=== PATIENT | male | born 1945 | race African-American/Black ===

== ENCOUNTER → 2023-07-29 09:21 | Outpatient (REF) | payer MEDICARE, SELFPAY | LOC: HWRAD 09:21 | PROVIDERS: ATTENDING PHYSICIAN Ophthalmology; FAMILY PHYSICIAN Internal Medicine | DX: H47.2 Optic atrophy (principal) | CPT/HCPCS: 70450 ==

== ENCOUNTER 2023-11-23 17:04 | Inpatient (IN) | payer MEDICARE, SELFPAY ==
[2023-11-22] VITALS (7 sets, daily range): BP systolic 119–128; BP diastolic 56–73; BMI 28.1
[2023-11-22 16:49] LABS: % Basophils 0.1 % (0-2); % Immature Granulocytes 0.4 % (0-0.5); % Lymphocytes 6.6 % (20.5-51.1); % Monocytes 3.7 % (1.7-9.3); % Neutrophils 89.2 % (42.2-75.2); Absolute Lymphocytes 0.5 10^3/uL (1.2-3.4); Absolute Monocytes 0.3 10^3/uL (0.1-0.6); Hematocrit 26.6 % (39.0-52.0); Hemoglobin 9.1 g/dL (13.0-18.0); Mean Corp Hgb Conc. 34.2 g/dL (33.0-37.0); Mean Corpuscular Hgb 29.3 pg (27.0-31.0); Mean Corpuscular Volume 85.5 fL (80.0-94.0); Mean Platelet Volume 12.5 fL (7.4-10.4); Nucleated Red Blood Cells % 0 % (-); Platelet Count 96 10^3/uL (130-400); Red Blood Cell Count 3.11 10^6/uL (4.70-6.10); Red Cell Dist. Width 12.7 % (11.5-14.5); White Blood Cell Count 7.8 10^3/uL (4.8-10.8)
[2023-11-22 17:07] LABS: ALT (SGPT) 41 U/L (0-50); AST (SGOT) 65 U/L (17-59); Albumin 3.8 g/dl (3.5-5.0); Alkaline Phosphatase 55 U/L (38-126); Blood Urea Nitrogen 81 mg/dl (9-20); Calcium 9.3 mg/dl (8.4-10.2); Carbon Dioxide 19 mmol/L (22-30); Chloride 105 mmol/L (98-107); Glucose 164 mg/dl (70-99); Potassium 4.5 mmol/L (3.5-5.1); Sodium 138 mmol/L (135-145); Total Protein 6.7 g/dl (6.3-8.2); eGFR 8.25
--- NOTE | 2023-11-22 19:22 | ED.GENMED ---
History of Present Illness
<Carlos Westfall MD - Last Filed: 11/23/23 09:13>
General
Chief Complaint: Dizziness
Source: patient
Exam Limitations: none
Time Seen by Provider: 11/22/23 18:33
Nursing documentation reviewed up to this point in time: agreed with
Travel History
Have you had any contact with someone who has COVID-19?: No
Do you have any symptoms of coronavirus? Fever > 100 degrees, chills, cough, shortness of breath, sore throat, loss of taste or smell, muscle aches, or headache?: No
History of Present Illness
History of Present Illness:
Patient with history of chronic renal insufficiency, being followed by waterproof bag sewer at [facility], presents to ED secondary to decreased appetite and weakness over the past 2 days. Patient states that his most recent blood
work, approximate 1 month ago, his creatinine was around 3. Denies difficulty with urination. Denies fever or chills. Denies vomiting. Denies abdominal pain. Denies back pain. Denies recent change in medications or diet.
Past History
<Carlos Westfall MD - Last Filed: 11/23/23 09:13>
Past History
ED Past Medical History: None
ED Past Surgical History: None
Social History
Tobacco: Non-smoker
Family History
Family History: Unable to obtain
Review of Systems
<Carlos Westfall MD - Last Filed: 11/23/23 09:13>
Review of Systems
Allergies reviewed?: Yes
All Other Systems: ROS reviewed and negative except as documented in HPI and ROS
Constitutional: Reports no symptoms
EENT: Reports no symptoms
Respiratory: Reports no symptoms
Cardiac: Reports no symptoms
ABD/GI: Reports other (loss of appetite)
: Reports no symptoms
Musculoskeletal: Reports no symptoms
Skin: Reports no symptoms
Neurological: Reports no symptoms
Phy Exam
<Carlos Westfall MD - Last Filed: 11/23/23 09:13>
Physical Exam
Physical Exam:
Physical Exam
General: no apparent distress, not acutely ill. afebrile.
Head: nc/at. eomi
Neck: supple. no meningeal signs.
Heart: s1/s2 regular rate and rhythm, no murmur. equal radial pulses.
Lungs: no acute respiratory distress. clear bilaterally
Abdomen: normal bowel sounds. not tender.
Neuro: alert and oriented. no focal neurological deficits
Skin: no rash
Psychiatric: well kept. interactive and cooperative
Extremities: no edema. no calf tenderness.
Course
<Carlos Westfall MD - Last Filed: 11/23/23 09:13>
Orders/Labs/Results
Orders:
Orders
11/22/23 16:12
Electrocardiogram (*1) Urgent
Reason for Study: Vertigo / Dizzy
11/22/23 16:13
EKG- Treatment ONCE
11/22/23 16:14
Complete Blood Count/With Diff Urgent
Comprehensive Metabolic Panel Urgent
11/22/23 19:21
0.9% Sodium Chloride 500 ml [Nss] 500 ml IV BOLUS
11/22/23 21:54
Urinalysis Reflex To Culture Urgent
Date Specimen was Collected: 11/22/23
Time Specimen was Collected: 20:07
11/22/23 22:26
Admit/Transfer Patient As Directed
Co-Sign Provider:
Level of Care: Observation services
Assign to:: Medical/Surgical
Physician / Group: rodrick
Diagnosis: decreased apetite
11/22/23 22:27
Code Status As Directed
Resuscitation Status: Full Code
11/23/23 00:43
0.9% Sodium Chloride 1000 ml [Nss] 1,000 ml IV 80 mls/hr
Calcitriol [Rocaltrol] 0.25 mcg PO MOWEFR
Dextrose 50%-Water [Dextrose 50% Syringe] 12.5 grams IV [id number] PRN
Glucagon [GlucaGen] 1 mg IM PRN PRN
11/23/23 00:43
Consult Notification Routine
Specialty to Notify: Nephrology
NEPHROLOGY CONSULT Routine
Consulting Provider: Dennise Becker
Was physician already notified: No
Reason for consult: DAMARI on CKD
Activity As Directed
Activity Level: As Tolerated
Bedside Glucose Monitoring As Directed
Frequency: AC&HS
Additional Instructions:: Change to q6h if pt on TPN, tube feeding or not eating
Vital Signs As Directed
Frequency: Per unit guidelines
DX Deep Vein Thrombosis Video Routine
11/23/23 04:46
Complete Blood Count/With Diff IN AM
Comprehensive Metabolic Panel IN AM
Glycohemoglobin (HgbA1c) IN AM
11/23/23 07:30
Insulin Aspart Corrective Low [Novolog Flexpen-Low Resistance] See Protocol SC AC
11/23/23 08:00
Aspirin Low Dose EC [Aspir Low (Enteric Coated)] 81 mg PO DAILY
Atorvastatin [Lipitor] 20 mg PO DAILY
Carvedilol [Coreg] 25 mg PO BID
Heparin 5,000 units SC Q12
NIFEdipine EXTENDED RELEASE [Procardia Xl (Extended Release)] 60 mg PO DAILY
Sodium Bicarbonate 1,300 mg PO BID
11/23/23 Dinner
Potassium, 2 Gram
At Your Request: Full Participation
11/23/23 18:00
insulin glargine [Lantus Solostar U-100 Insulin] 4 unit SC QPM
11/23/23 22:00
Latanoprost [Xalatan Ophthalmic Solution] 1 drop BOTH EYES HS
Abnormal Lab Results
11/22/23
16:14
RBC 3.11 L 10^6/uL
(4.70-6.10)
Hgb 9.1 L g/dL
(13.0-18.0)
Hct 26.6 L %
(39.0-52.0)
Plt Count 96 L 10^3/uL
(130-400)
MPV 12.5 H fL
(7.4-10.4)
Absolute Neuts (auto) 7.0 H 10^3/uL
(1.4-6.5)
Absolute Lymphs (auto) 0.5 L 10^3/uL
(1.2-3.4)
Neutrophils % 89.2 H %
(42.2-75.2)
Lymphocytes % 6.6 L %
(20.5-51.1)
Carbon Dioxide 19 L mmol/L
(22-30)
BUN 81 H mg/dl
(9-20)
Creatinine 6.5 H* mg/dL
(0.7-1.3)
Glucose 164 H mg/dl
(70-99)
AST 65 H U/L
(17-59)
11/22/23 16:14
11/22/23 16:14
Vital Signs
Initial and Last Documented VS:
Initial Vital Signs
Temp Pulse Resp BP Pulse Ox
98.7 F 88 18 124/69 92
11/22/23 16:10 11/22/23 16:10 11/22/23 16:10 11/22/23 16:10 11/22/23 16:10
Last Documented Vital Signs
Temp Pulse Resp BP Pulse Ox
100.1 F 80 17 126/61 96
11/23/23 08:08 11/23/23 08:08 11/23/23 08:08 11/23/23 08:08 11/23/23 08:08
<Franci Scott MD - Last Filed: 11/23/23 01:32>
Orders/Labs/Results
Orders:
Orders
11/22/23 16:12
Electrocardiogram (*1) Urgent
Reason for Study: Vertigo / Dizzy
11/22/23 16:13
EKG- Treatment ONCE
11/22/23 16:14
Complete Blood Count/With Diff Urgent
Comprehensive Metabolic Panel Urgent
11/22/23 19:21
0.9% Sodium Chloride 500 ml [Nss] 500 ml IV BOLUS
11/22/23 21:54
Urinalysis Reflex To Culture Urgent
Date Specimen was Collected: 11/22/23
Time Specimen was Collected: 20:07
11/22/23 22:26
Admit/Transfer Patient As Directed
Co-Sign Provider:
Level of Care: Observation services
Assign to:: Medical/Surgical
Physician / Group: rodrick
Diagnosis: decreased apetite
11/22/23 22:27
Code Status As Directed
Resuscitation Status: Full Code
11/23/23 00:43
0.9% Sodium Chloride 1000 ml [Nss] 1,000 ml IV 80 mls/hr
Calcitriol [Rocaltrol] 0.25 mcg PO MOWEFR
Dextrose 50%-Water [Dextrose 50% Syringe] 12.5 grams IV [id number] PRN
Glucagon [GlucaGen] 1 mg IM PRN PRN
11/23/23 00:43
Consult Notification Routine
Specialty to Notify: Nephrology
NEPHROLOGY CONSULT Routine
Consulting Provider: Dennise Becker
Was physician already notified: No
Reason for consult: DAMARI on CKD
Activity As Directed
Activity Level: As Tolerated
Bedside Glucose Monitoring As Directed
Frequency: AC&HS
Additional Instructions:: Change to q6h if pt on TPN, tube feeding or not eating
Vital Signs As Directed
Frequency: Per unit guidelines
DX Deep Vein Thrombosis Video Routine
11/23/23 04:46
Complete Blood Count/With Diff IN AM
Comprehensive Metabolic Panel IN AM
Glycohemoglobin (HgbA1c) IN AM
11/23/23 07:30
Insulin Aspart Corrective Low [Novolog Flexpen-Low Resistance] See Protocol SC AC
11/23/23 08:00
Aspirin Low Dose EC [Aspir Low (Enteric Coated)] 81 mg PO DAILY
Atorvastatin [Lipitor] 20 mg PO DAILY
Carvedilol [Coreg] 25 mg PO BID
Heparin 5,000 units SC Q12
NIFEdipine EXTENDED RELEASE [Procardia Xl (Extended Release)] 60 mg PO DAILY
Sodium Bicarbonate 1,300 mg PO BID
11/23/23 Dinner
Potassium, 2 Gram
At Your Request: Full Participation
11/23/23 18:00
insulin glargine [Lantus Solostar U-100 Insulin] 4 unit SC QPM
11/23/23 22:00
Latanoprost [Xalatan Ophthalmic Solution] 1 drop BOTH EYES HS
Abnormal Lab Results
11/22/23
16:14
RBC 3.11 L 10^6/uL
(4.70-6.10)
Hgb 9.1 L g/dL
(13.0-18.0)
Hct 26.6 L %
(39.0-52.0)
Plt Count 96 L 10^3/uL
(130-400)
MPV 12.5 H fL
(7.4-10.4)
Absolute Neuts (auto) 7.0 H 10^3/uL
(1.4-6.5)
Absolute Lymphs (auto) 0.5 L 10^3/uL
(1.2-3.4)
Neutrophils % 89.2 H %
(42.2-75.2)
Lymphocytes % 6.6 L %
(20.5-51.1)
Carbon Dioxide 19 L mmol/L
(22-30)
BUN 81 H mg/dl
(9-20)
Creatinine 6.5 H* mg/dL
(0.7-1.3)
Glucose 164 H mg/dl
(70-99)
AST 65 H U/L
(17-59)
11/22/23 16:14
11/22/23 16:14
Vital Signs
Initial and Last Documented VS:
Initial Vital Signs
Temp Pulse Resp BP Pulse Ox
98.7 F 88 18 124/69 92
11/22/23 16:10 11/22/23 16:10 11/22/23 16:10 11/22/23 16:10 11/22/23 16:10
Last Documented Vital Signs
Temp Pulse Resp BP Pulse Ox
100.1 F 80 17 126/61 96
11/23/23 08:08 11/23/23 08:08 11/23/23 08:08 11/23/23 08:08 11/23/23 08:08
<Carlos Westfall MD - Last Filed: 11/23/23 09:13>
MDM/Problems Addressed
MDM/Problems Addressed:
Blood work reviewed, remarkable for significant elevated creatinine, possibly secondary to recent lack of oral intake, along with symptoms concerning for uremia. Patient will be admitted for IV hydration and further evaluation.
<Franci Scott MD - Last Filed: 11/23/23 01:32>
*Critical Care Note
Total Time (30-74mins, 75-104mins- exclusive of procedures): Not Applicable
ED Attending Note
<Carlos Westfall MD - Last Filed: 11/23/23 09:13>
-
Portions of this chart may have been created with voice recognition software.� Occasional wrong word or��sound alike� substitutions may have occurred due to the inherent limitations of voice recognition software.
Discharge Plan
Departure
Patient Disposition: Admit
Date of Disposition: 11/22/23
Time of Disposition: 19:25
Admit to: Med/Surg
Presentation/result/management discussed w/ accepting MD/DO: Hospitalist
Discharge Problem:
Acute renal failure superimposed on chronic kidney disease
Interventions
Interventions:
*Risk Screen - Suicide Last Done: 11/22/23 18:28
*General Assessment Last Done: 11/22/23 18:28
*Neglect/Abuse Screening Last Done: 11/22/23 18:28
ED- Fall Risk Assessment Last Done: 11/23/23 00:20
*ED COVID-19 Vaccine History Last Done: 11/22/23 20:26
*Nursing Disposition Last Done: 11/23/23 00:30
ED- Neurological Assessment Last Done: 11/23/23 00:20
ED- Cardiac Assessment Last Done: 11/23/23 00:20
ED Swallowing Screen Last Done: 11/22/23 18:28
Discharge Date and Time
Discharge Date/Time: 11/23/23 00:30
[2023-11-22] MEDS: NSS 500 IV (19:29)
--- NOTE | 2023-11-22 22:30 | HPS.HSE ---
Family Physician
-
Family Physician: Lianna Hurley MD
Chief Complaint
-
decreased PO Intake
History of Present Illness
78-year-old female past medical history of CKD 3, hypertension, hyperlipidemia, diabetes, presenting for decreased appetite over the past year particularly over the past few weeks. He has been feeling weak and has lost significant amount of weight
over this time. He has some mild tremors. He has chronic lower extremity edema which is stable. He denies nausea vomiting or diarrhea. He denies any flank pain, urinary symptoms or decreased urine output. Denies abdominal pain. Denies any
fevers or chills. Patient follows with nephrology at [facility] and last had blood work a month ago and his creatinine was 3. He states that his creatinine was last normal possibly 2 years ago. He has not been started on any new medications recently.
His blood pressure has been controlled. He denies any chest pain or shortness of breath.
He denies smoking or alcohol use.
Medical History
Past Medical History
Past Medical History: Reports Other (CKD 3, hypertension, hyperlipidemia, diabetes)
Past Surgical History: Reports Other (Eye surgery, appendectomy, hernia surgery)
Social History
Tobacco: Non-smoker
Alcohol: None
Drug: None
Family History
Family History: Not pertinent
Allergies / Home Medications
Allergies reflects when Allergies were last updated in [facility].
Home Medications with original date entered in [facility]
Allergy/Medication List:
Allergies
Allergy/AdvReac Type Severity Reaction Status Date / Time
No Known Allergies Allergy Verified 11/22/23 16:09
Home Medications
aspirin 81 mg tablet,delayed release 81 mg PO DAILY 11/22/23
calcitriol 0.25 mcg capsule 0.25 mcg PO MOWEFR 11/22/23
carvedilol 25 mg tablet (Coreg) 25 mg PO BID 11/22/23
insulin glargine 100 unit/mL (3 mL) subcutaneous pen (Lantus Solostar U-100 Insulin) 4 unit SC QPM 11/22/23
latanoprost 0.005 % eye drops 1 drp BOTH EYES HS 11/22/23
nifedipine 90 mg tablet,extended release 24 hr 90 mg PO DAILY 11/22/23
simvastatin 40 mg tablet (Zocor) 40 mg PO DAILY 11/22/23
sodium bicarbonate 650 mg tablet 1,300 mg PO BID 11/22/23
Review of Systems
-
History Source: Patient
A 12 point ROS was completed and negative except as noted: Yes
Constitutional: Reports No Symptoms
EENT: Reports No Symptoms
Respiratory: Reports No Symptoms
Cardiac: Reports No Symptoms
Abdomen/GI: Reports See HPI
: Reports No Symptoms
Musculoskeletal: Reports No Symptoms
Skin: Reports No Symptoms
Neurological: Reports No Symptoms
Endocrine: Reports No Symptoms
Hematologic/Lymphatic: Reports No Symptoms
Psych: Reports No Symptoms
Physical Exam
Vital Signs
Vital Signs
Temp Pulse Resp BP Pulse Ox
98.7 F 94 30 128/56 94
11/22/23 16:10 11/22/23 21:15 11/22/23 21:15 11/22/23 21:00 11/22/23 21:15
Physical Exam
General: Well Developed, Well Nourished and No Apparent Distress
HEENT: NormoCephalic, Moist mucous membranes and Atraumatic
Respiratory: Clear
Cardiac: S1/S2, Regular Rhythm and Peripheral Edema; No Murmur or Rub
GI: Soft, Non Tender, Non Distended and Normal Bowel Sounds; No Organomegaly
Rectal: Deferred by Provider
Musculoskeletal: No Clubbing, No Cyanosis and No Edema
Skin: No Rash
Neuro: Nonfocal/grossly intact
Laboratory Results
-
11/22/23 16:14
11/22/23 16:14
Laboratory Results
Total Bilirubin 1.0 mg/dl (0.2-1.3) 11/22/23 16:14
AST 65 U/L (17-59) H 11/22/23 16:14
ALT 41 U/L (0-50) 11/22/23 16:14
Alkaline Phosphatase 55 U/L (38-126) 11/22/23 16:14
Data Reviewed
-
Lab Data: Labs Reviewed by me
Old Records: Reviewed
Impression/Plan
-
IMPRESSION:
PLAN:
# DAMARI on CKD 3 unclear etiology
# Symptomatic uremia
-Creatinine of 6.5 from 3 last month
-Check urinalysis
-IV fluids for possible prerenal component
-Continue sodium bicarb
-Continue calcitriol
-Will need to obtain records from nephrology at [facility], patient does not remember exact name and spelling so unable to lookup
-Nephrology consulted
Normocytic anemia likely related to CKD
-Hemoglobin 9.1
Thrombocytopenia
-Chronicity unknown, no prior labs available
Essential hypertension
-Continue nifedipine, Coreg
-Continue prophylactic aspirin
Hyperlipidemia
-Continue statin
Type 2 diabetes
-Continue Lantus 4 units at night
-Insulin sliding
Full code
DVT prophylaxis�heparin
Renal diet
[2023-11-23] VITALS (13 sets, daily range): BP systolic 90–126; BP diastolic 50–80; BMI 27.6
[2023-11-23] MEDS: TYLENOL 650 MG PO ×2 (01:09→15:24)
[2023-11-23] MEDS: ROCALTROL PO (01:19)
[2023-11-23 01:22] LABS: Glucose - Point of Care 193 mg/dl (70-99)
[2023-11-23] MEDS: NSS 1000 IV ×2 (01:38→15:24)
[2023-11-23] MEDS: LANTUS 0.0400000000000000008 UNITS SC ×2 (01:59→17:48)
--- NOTE | 2023-11-23 02:06 | PTCARENOTE ---
Received pt from ED at approx 0045, pulled over from stretcher to bed with assist x3. Belongings at bedside. Pt oriented to room. Pt with +4 BL LE edema, decreased lung sounds b/l, and faint weak non-productive cough. AAOx3, warm to touch. Oral temp
102.9F, BP 119/62, HR 92. Received pt on 2L O2, SaO2 86%. Pt required increase oxygen needs to 5L for SaO2 94%. LANDON Page notified. STAT portable CXR ordered and completed, 650mg Tylenol STAT ordered @ 0110. At 0145, oral temperature rechecked, 103F,
pt packed with ice. Pt's O2 needs decreased, SaO2 95% on 3L. LANDON Page updated, ordered STAT labs and COVID/Flu swabs. Pt remains pleasant and oriented, updated on plan of care. Call lu within reach
[2023-11-23 02:17] LABS: % Basophils 0.1 % (0-2); % Immature Granulocytes 0.3 % (0-0.5); % Lymphocytes 5.7 % (20.5-51.1); % Monocytes 3.5 % (1.7-9.3); % Neutrophils 90.4 % (42.2-75.2); Absolute Lymphocytes 0.4 10^3/uL (1.2-3.4); Absolute Monocytes 0.2 10^3/uL (0.1-0.6); Absolute Neutrophils 6.1 10^3/uL (1.4-6.5); Hematocrit 22.2 % (39.0-52.0); Hemoglobin 7.9 g/dL (13.0-18.0); Mean Corp Hgb Conc. 35.6 g/dL (33.0-37.0); Mean Corpuscular Hgb 29.6 pg (27.0-31.0); Mean Corpuscular Volume 83.1 fL (80.0-94.0); Mean Platelet Volume 11.8 fL (7.4-10.4); Nucleated Red Blood Cells % 0 % (-); Platelet Count 91 10^3/uL (130-400); Red Blood Cell Count 2.67 10^6/uL (4.70-6.10); Red Cell Dist. Width 12.9 % (11.5-14.5); White Blood Cell Count 6.8 10^3/uL (4.8-10.8)
[2023-11-23 02:20] LABS: COVID-19 Antigen Negative (Negative)
[2023-11-23 03:02] LABS: ALT (SGPT) 53 U/L (0-50); AST (SGOT) 87 U/L (17-59); Albumin 3.2 g/dl (3.5-5.0); Alkaline Phosphatase 49 U/L (38-126); Blood Urea Nitrogen 87 mg/dl (9-20); Calcium 8.6 mg/dl (8.4-10.2); Carbon Dioxide 20 mmol/L (22-30); Chloride 107 mmol/L (98-107); Estimated Creatinine Clearance 9 ml/min; Glucose 166 mg/dl (70-99); Potassium 4.1 mmol/L (3.5-5.1); Sodium 139 mmol/L (135-145); Total Bilirubin 0.7 mg/dl (0.2-1.3); Total Protein 5.9 g/dl (6.3-8.2); eGFR 7.06
[2023-11-23] MEDS: LEVAQUIN 50 IV (03:48)
--- NOTE | 2023-11-23 03:58 | PTCARENOTE ---
Temperature reassessment 100.3F orally, ice packs removed. bladder scanned for no urine output, 237mL. LANDON Page updated.
[2023-11-23 05:58] LABS: % Basophils 0.1 % (0-2); % Immature Granulocytes 0.1 % (0-0.5); % Lymphocytes 7.2 % (20.5-51.1); % Monocytes 3.6 % (1.7-9.3); Absolute Lymphocytes 0.5 10^3/uL (1.2-3.4); Absolute Monocytes 0.3 10^3/uL (0.1-0.6); Absolute Neutrophils 6.3 10^3/uL (1.4-6.5); Hematocrit 23.8 % (39.0-52.0); Hemoglobin 8.1 g/dL (13.0-18.0); Mean Corpuscular Hgb 29.2 pg (27.0-31.0); Mean Corpuscular Volume 85.9 fL (80.0-94.0); Mean Platelet Volume 12.3 fL (7.4-10.4); Nucleated Red Blood Cells % 0 % (-); Platelet Count 86 10^3/uL (130-400); Red Blood Cell Count 2.77 10^6/uL (4.70-6.10); Red Cell Dist. Width 12.5 % (11.5-14.5); White Blood Cell Count 7.1 10^3/uL (4.8-10.8)
[2023-11-23 06:22] LABS: ALT (SGPT) 62 U/L (0-50); AST (SGOT) 97 U/L (17-59); Albumin 3.1 g/dl (3.5-5.0); Alkaline Phosphatase 48 U/L (38-126); Blood Urea Nitrogen 89 mg/dl (9-20); Calcium 8.5 mg/dl (8.4-10.2); Carbon Dioxide 18 mmol/L (22-30); Chloride 106 mmol/L (98-107); Estimated Creatinine Clearance 9 ml/min; Glucose 154 mg/dl (70-99); Potassium 4.2 mmol/L (3.5-5.1); Sodium 137 mmol/L (135-145); Total Bilirubin 0.7 mg/dl (0.2-1.3); Total Protein 5.7 g/dl (6.3-8.2); eGFR 6.84
[2023-11-23 07:56] LABS: Glucose - Point of Care 153 mg/dl (70-99)
[2023-11-23] MEDS: PROCARDIA XL (EXTENDED RELEASE) 60 MG PO (08:13)
[2023-11-23] MEDS: SODIUM BICARBONATE 1300 MG PO ×2 (08:13→20:40)
[2023-11-23] MEDS: ASPIR LOW (ENTERIC COATED) 81 MG PO (08:14)
[2023-11-23] MEDS: COREG 25 MG PO ×2 (08:14→20:40)
[2023-11-23] MEDS: PROCARDIA XL (EXTENDED RELEASE) 30 MG PO (08:14)
[2023-11-23] MEDS: HEPARIN 5000 UNITS SC ×2 (08:14→20:40)
[2023-11-23] MEDS: LIPITOR 20 MG PO (08:14)
[2023-11-23] MEDS: NOVOLOG FLEXPEN-LOW RESISTANCE 1 UNITS SC ×2 (08:19→17:49)
[2023-11-23 12:05] LABS: Glucose - Point of Care 163 mg/dl (70-99)
--- NOTE | 2023-11-23 12:09 | W.PN.HOSP.TC ---
Today's Communication/Plan
-
Nephrology consult
Urinalysis
Await blood cultures
Renal ultrasound
CT chest
Assessment / Plan
Assessment / Plan
Gen-AAOx3, NAD
HEENT-NC, AT, anicteric, clear oral mm
Neck-supple
CV-reg, no M, +S1/S2
Lungs-clear B/L
Abd-soft, NT, ND
Ext-bilateral lower extremity lymphedema
Musculoskeletal-no cyanosis, clubbing
Skin-warm and dry
Neuro-grossly non-focal
Psych-calm, cooperative
Sepsis -present on admission. Source unclear. Hemodynamically stable. No fevers at home but did have chills. Denies abdominal pain. Differential diagnosis includes pneumonia versus source versus other. Blood cx sent last night. Started
empiric Levaquin.
UA pending. Check CT chest without contrast given questionable left sided pneumonia vs mass.
DAMARI on CKD 3 -unclear stage of chronic kidney disease given that we have no prior blood work. Reportedly creatinine 3 one month ago. Etiology of DAMARI unclear but differential includes sepsis, postobstructive, prerenal, etc. Nephrology consulted.
Nongap metabolic acidosis noted. Bicarb 18 today. Continue sodium bicarb today.
Escalera catheter inserted. Bladder scan was 237 cc prior to insertion.
Normocytic anemia - Hgb 8.1 today. Suspect CKD related chronic anemia. Baseline Hgb unknown.
Thrombocytopenia - 86k today. Unclear etiology or acuity. Monitor for now.
Essential HTN -stable.
DM2 with hyperglycemia - glucose 154 this am, received 4 units of Lantus last night. This is his home regimen. Continue low resistance NovoLog scale.
Hyperlipidemia -on Zocor.
Full code
Anticipated Discharge: > 48 hours
Subjective/Interval History
-
Date of Service: November 23, 2023
Patient seen/examined. Mild SOB, cough. Complaining of loss of appetite, fatigue.
Objective Data
-
Labs:
Laboratory Results
11/23/23 11/23/23
02:07 04:46
WBC 6.8 7.1
Hgb 7.9 L 8.1 L
Hct 22.2 L 23.8 L
Plt Count 91 L 86 L
Sodium 139 137
Potassium 4.1 4.2
Chloride 107 106
Carbon Dioxide 20 L 18 L
BUN 87 H 89 H
Creatinine 7.4 H* 7.6 H*
Glucose 166 H 154 H
Calcium 8.6 8.5
Total Bilirubin 0.7 0.7
AST 87 H 97 H
ALT 53 H 62 H
Alkaline Phosphatase 49 48
Vital Signs:
Vital Signs
Temp Pulse Resp BP Pulse Ox
99.4 F 80 17 126/61 96
11/23/23 11:04 11/23/23 08:08 11/23/23 08:08 11/23/23 08:08 11/23/23 08:08
I&O
11/22/23 11/23/23 11/24/23
06:59 06:59 06:59
Intake Total 570 / 570
Balance 570 / 570
Review of Systems
-
History Source: Patient
All other systems: Reviewed and negative
[2023-11-23 12:11] LABS: Glycohemoglobin (HgbA1c) 5.5 % (4.0-5.6)
--- NOTE | 2023-11-23 12:18 | W.CON.NEPH ---
Consultation
-
Date/Time Consultation Requested: 11/23/2023 00:43
Date/Time Consultation Performed: 11/23/2023 12:19PM
Requesting Provider: [facility]
Performing Provider: Dennise Becker
Reason for Consultation: DAMARI on CKD
Medical History
-
Chief Complaint: DAMARI on CKD
History of Present Illness:
Mr. Hernández is a 78YOM with PMH of CKD Stage 4, HTN, DLD, diabetes who presents to the hospital after having decreased PO intake, particularly over the past few days. States that he has lost a significant amount of weight and feels nauseous when he
tries to eat something. Is noted to have some tremors. Denies vomitting or diarrhea. Does endorse stable lower extremity edema, no worsenign SOB.
Of note, the patient follows with [facility]. His last Cr was 3.7. Has continued to make urine, feels like he is peeing more.
Past Medical History
CKD 3/4, hypertension, hyperlipidemia, diabetes
Past Surgical History: Other (Eye surgery, appendectomy, hernia surgery)
Social History
Tobacco: Non-Smoker
Alcohol: None
Drug: None
Family History
Family History: Not Pertinent
Allergies / Home Medications
Allergy/AdvReac Type Severity Reaction Status Date / Time
No Known Allergies Allergy Verified 11/22/23 16:09
�Medication �Instructions �Recorded �Confirmed �Type
aspirin 81 mg tablet,delayed 81 mg PO DAILY Blood Clot 11/22/23 11/22/23 History
release Prevention/Tx
calcitriol 0.25 mcg capsule 0.25 mcg PO MOWEFR Supplement 11/22/23 11/22/23 History
carvedilol 25 mg tablet (Coreg) 25 mg PO BID Blood Pressure 11/22/23 11/22/23 History
insulin glargine 100 unit/mL (3 4 unit SC QPM Diabetes 11/22/23 11/22/23 History
mL) subcutaneous pen (Lantus
Solostar U-100 Insulin)
latanoprost 0.005 % eye drops 1 drp BOTH EYES HS Eye Condition 11/22/23 11/22/23 History
nifedipine 90 mg tablet,extended 90 mg PO DAILY Blood Pressure 11/22/23 11/22/23 History
release 24 hr
simvastatin 40 mg tablet (Zocor) 40 mg PO DAILY High Cholesterol 11/22/23 11/22/23 History
sodium bicarbonate 650 mg tablet 1,300 mg PO BID Electrolyte 11/22/23 11/22/23 History
Repletion
Review of Systems
-
History Source: Patient
All other systems: Negative unless noted
Constitutional: Weight Loss and Fatigue
Abdomen/GI: Nausea and Anorexia
Endocrine: Polyuria
Physical Exam
Vital Signs
Vital Signs
Temp Pulse Resp BP Pulse Ox
99.4 F 80 17 126/61 96
11/23/23 11:04 11/23/23 08:08 11/23/23 08:08 11/23/23 08:08 11/23/23 08:08
Lab Results
WBC 7.1 10^3/uL (4.8-10.8) 11/23/23 04:46
RBC 2.77 10^6/uL (4.70-6.10) L 11/23/23 04:46
Hgb 8.1 g/dL (13.0-18.0) L 11/23/23 04:46
Hct 23.8 % (39.0-52.0) L 11/23/23 04:46
Plt Count 86 10^3/uL (130-400) L 11/23/23 04:46
Sodium 137 mmol/L (135-145) 11/23/23 04:46
Potassium 4.2 mmol/L (3.5-5.1) 11/23/23 04:46
Chloride 106 mmol/L (98-107) 11/23/23 04:46
Carbon Dioxide 18 mmol/L (22-30) L 11/23/23 04:46
BUN 89 mg/dl (9-20) H 11/23/23 04:46
Creatinine 7.6 mg/dL (0.7-1.3) H* 11/23/23 04:46
eGFR 6.84 11/23/23 04:46
Glucose 154 mg/dl (70-99) H 11/23/23 04:46
Calcium 8.5 mg/dl (8.4-10.2) 11/23/23 04:46
Albumin 3.1 g/dl (3.5-5.0) L 11/23/23 04:46
Physical Exam
General: AOx3, No Distress and Nontoxic
HEENT: PERRL, EOMI, Anicteric, Conjunctivae Clear, Ear/Nose Intact and Hearing Normal
Respiratory: Clear
Cardiac: S1/S2 and Edema (non pitting)
Breast: N/A
Abdomen: Soft, Nontender and Nondistended
Rectal: Deferred by Provider
Genito-urinary: No Costovertebral Tender
Musculoskeletal: No Clubbing, No Cyanosis and Edema
Skin: No Rash, Warm, Dry, No Clubbing, No Cyanosis and Normal Turgor
Neuro: Nonfocal/Grossly Intact
Hematologic/Lymphatic: No Cervical Lymphadenopathy
Psych: Mood/afflect pleasant, Insight/judgement good and Appropriate
Data Reviewed
-
Radiology: Image Personally Visualized and interpreted (no edmema noted on CXR. pleural plauqes?)
Labs: Labs Reviewed by me, Discussed with Nurse and Discussed with Patient
Old Records: Requested
Assessment/Plan
-
Assessment:
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
Uremia
Anemia
HTN
DLD
T2DM
Plan:
DAMARI
- differential includes pre vs. post renal. unclear of underlying cause of CKD
- please obtain records from [place] so we can better understand chronicity of his disease and cause of CKD
- UA and UPCR
- obtain urine Na to better understand volume status
- Escalera placed as he ahd >250cc in bladder
- KUS requested
- continue IVF as you are doing. once this bag is complete, could transition to LR
Uremia
- BUN elevated
- likely contributing to nausea/anorexia
- if we are unable to improve kidney function with conservative measures, we will have to consider HD
HAGMA
- likely in the setting of uremia
- sodium bicarb tabs noted
- plan to transition to LR when able
[2023-11-23 13:31] LABS: Urine Albumin 2+ (Neg - Trace); Urine Bilirubin Negative (Negative); Urine Character Slightly Cloudy (Clear); Urine Color Yellow; Urine Glucose Trace (Negative); Urine Ketone Negative (Negative); Urine Leukocyte Negative (Negative); Urine Nitrite Negative (Negative); Urine Occult Blood 3+ (Negative); Urine Urobilinogen Negative (Neg - 1+)
[2023-11-23 13:49] LABS: Urine Sodium 36 mmol/L (30-90)
[2023-11-23 14:00] LABS: Protein/creatinine Ratio 1.3; Urine Protein 297 mg/dl
[2023-11-23 14:22] LABS: Urine White Cell 0-2 /HPF (0-5)
[2023-11-23] MEDS: NOVOLOG FLEXPEN-LOW RESISTANCE SC (15:24)
--- NOTE | 2023-11-23 16:25 | W.PN.UPDATE ---
Update Note
Progress Note Update
cross coverage Update:
Notified by nursing staff patient spiked fever and developed increased oxygen requirement. Was on 3 L throughout the day till late afternoon oxygen requirement increased to 15 L with nonrebreather.
Gen-AAOx3, NAD
HEENT-NC, AT, anicteric, clear oral mm
Neck-supple
CV-reg, no M, +S1/S2
Lungs-distant breath sounds clear no crackles wheezes noted
Abd-soft, NT, ND
Ext-bilateral lower extremity lymphedema
Musculoskeletal-no cyanosis, clubbing
Skin-warm and dry
Neuro-grossly non-focal
Psych-calm, cooperative
Repeat vital signs stable fever improving after Tylenol. BP 109/56 HR 86 respiratory rate 16 temperature 100.1
78 male history CKD 3 hypertension hyperlipidemia diabetes presented for evaluation poor appetite progressive weight loss physical debilitation. Admitted with sepsis suspected pneumonia DAMARI on CKD 3 oliguria. Acute hypoxic respiratory failure
though mentating well AOx3.
-Transfer to IMU
-High flow ordered
-Stat chest x-ray
-Discussed with nephro IV fluids stopped once IV Lasix 80 mg ordered patient possibly will require dialysis
-Pulm juan requested
- updated regarding patient's situation and plan over phone.
--- NOTE | 2023-11-23 16:30 | PTCARENOTE ---
Pt found to be low 80s on 3L NC. Pt requiring non-rebreather to maintain oxygen saturation. Dr. Read made aware via TT. Pt to be transferred to IMU. Will continue to monitor.
[2023-11-23] MEDS: LASIX 80 MG IV (17:17)
--- NOTE | 2023-11-23 17:30 | PTCARENOTE ---
Addendum entered by Renita Snider RN 11/23/23 18:01:
POx 100% on high flow 50L 100%. Patient eating dinner.
Original Note:
Received patient on transfer from via stretcher on high flow O2 accompanied by resp therapist. Patient transferred from stretcher to bed x4 assist. Crackles noted t/o. SR with PACs on monitor. Patient denies SOB. Stat lasix 80mg given on arrival.
Accu check 196 on arrival; call placed to requesting novolog pen and lantus. Ox3, +3 edema noted BLE.
[2023-11-23 17:35] LABS: Glucose - Point of Care 196 mg/dl (70-99)
[2023-11-23 21:36] LABS: Glucose - Point of Care 209 mg/dl (70-99)
[2023-11-24] VITALS (42 sets, daily range): BP systolic 97–138; BP diastolic 49–85; BMI 28.1
[2023-11-24 05:41] LABS: % Immature Granulocytes 0.2 % (0-0.5); % Lymphocytes 7.2 % (20.5-51.1); % Monocytes 3.4 % (1.7-9.3); % Neutrophils 89.2 % (42.2-75.2); Absolute Lymphocytes 0.5 10^3/uL (1.2-3.4); Absolute Monocytes 0.2 10^3/uL (0.1-0.6); Absolute Neutrophils 5.8 10^3/uL (1.4-6.5); Hematocrit 24.8 % (39.0-52.0); Hemoglobin 8.4 g/dL (13.0-18.0); Mean Corp Hgb Conc. 33.9 g/dL (33.0-37.0); Mean Corpuscular Hgb 29.3 pg (27.0-31.0); Mean Corpuscular Volume 86.4 fL (80.0-94.0); Mean Platelet Volume 12.3 fL (7.4-10.4); Nucleated Red Blood Cells % 0 % (-); Platelet Count 91 10^3/uL (130-400); Red Blood Cell Count 2.87 10^6/uL (4.70-6.10); Red Cell Dist. Width 12.8 % (11.5-14.5); White Blood Cell Count 6.5 10^3/uL (4.8-10.8)
[2023-11-24 06:08] LABS: ALT (SGPT) 72 U/L (0-50); AST (SGOT) 94 U/L (17-59); Albumin 2.8 g/dl (3.5-5.0); Alkaline Phosphatase 50 U/L (38-126); Blood Urea Nitrogen 109 mg/dl (9-20); Calcium 8.3 mg/dl (8.4-10.2); Carbon Dioxide 18 mmol/L (22-30); Chloride 105 mmol/L (98-107); Estimated Creatinine Clearance 7 ml/min; Glucose 162 mg/dl (70-99); Potassium 4.9 mmol/L (3.5-5.1); Sodium 135 mmol/L (135-145); Total Bilirubin 0.5 mg/dl (0.2-1.3); Total Protein 5.4 g/dl (6.3-8.2); eGFR 5.51
--- NOTE | 2023-11-24 06:10 | PTCARENOTE ---
pt very lethargic but arousable- low grade fevers throughout shift. huntley did not put out urine-- sinus with ectopy- bp wnl-- highflow weaned to 50- 50
--- NOTE | 2023-11-24 07:16 | W.PN.HOSP.TC ---
Addendum entered and electronically signed by Nacho Olivares DO 11/24/23 15:00:
Updated patient's Nadeen on the phone. All questions answered.
Original Note:
Today's Communication/Plan
-
High flow nasal cannula oxygen
Nephrology to see
Change antibiotics
IR consult for hemodialysis access
Assessment / Plan
Assessment / Plan
Gen-AAOx3, NAD
HEENT-NC, AT, anicteric, clear oral mm
Neck-supple
CV-reg, no M, +S1/S2
Lungs-clear B/L
Abd-soft, NT, ND
Ext-bilateral lower extremity lymphedema
Musculoskeletal-no cyanosis, clubbing
Skin-warm and dry
Neuro-grossly non-focal
Psych-calm, cooperative
Acute hypoxic respiratory failure -likely multifactorial etiology including renal failure induced pulmonary edema, possible pneumonia, etc.
Repeat chest x-ray from 11/22 shows large dense left lower lobe airspace consolidation and moderate amount of airspace opacity in the inferior left upper lobe, worsened compared to the prior day. Mild right lower airspace opacity.
Transitioned to high flow nasal cannula yesterday with improvement in oxygenation.
Sepsis -possibly due to pneumonia. Hemodynamically stable. No fevers at home but did have chills. Denies abdominal pain. Urinalysis without significant pyuria. COVID-19 negative, influenza negative. Blood cultures negative so far. Will change
antibiotics to ceftriaxone and doxycycline to cover community-acquired pneumonia.
DAMARI on CKD 4 -suspect progression of renal failure and likely approaching ESRD. Nongap metabolic acidosis noted. Bicarb 18 today. Continue sodium bicarb. Urine output only 150 cc over past 24 hours.
He is uremic given significant anorexia and weight loss. I believe he needs to start dialysis. I spoke to Dr. Becker of nephrology, she concurs with initiation of hemodialysis. IR will be consulted for temporary dialysis catheter placement.
Escalera catheter inserted. Bladder scan was 237 cc prior to insertion.
Normocytic anemia - Hgb 8.4 today. Suspect CKD related chronic anemia. Baseline Hgb unknown.
Thrombocytopenia - 91k today. Unclear etiology or acuity. Monitor for now.
Essential HTN -stable.
DM2 with hyperglycemia - glucose 162 this am, received 4 units of Lantus last night. This is his home regimen. Continue low resistance NovoLog scale.
Hyperlipidemia -on Zocor.
Full code
Anticipated Discharge: > 48 hours
Subjective/Interval History
-
Date of Service: November 24, 2023
Patient seen and examined. Shortness of breath improved on high flow oxygen. No complaints.
Objective Data
-
Labs:
Laboratory Results
11/24/23
04:25
WBC 6.5
Hgb 8.4 L
Hct 24.8 L
Plt Count 91 L
Sodium 135
Potassium 4.9
Chloride 105
Carbon Dioxide 18 L
BUN 109 H*
Creatinine 9.1 H*
Glucose 162 H
Calcium 8.3 L
Total Bilirubin 0.5
AST 94 H
ALT 72 H
Alkaline Phosphatase 50
Vital Signs:
Vital Signs
Temp Pulse Resp BP Pulse Ox
100.5 F H 77 20 107/61 92
11/24/23 03:21 11/24/23 05:00 11/24/23 05:00 11/24/23 06:00 11/24/23 05:00
I&O
11/23/23 11/24/23 11/25/23
06:59 06:59 06:59
Intake Total 570 / 570 180 / 180
Output Total 150 / 150
Balance 570 / 570 30 / 30
Review of Systems
-
History Source: Patient
All other systems: Reviewed and negative
[2023-11-24 07:46] LABS: Glucose - Point of Care 172 mg/dl (70-99)
[2023-11-24] MEDS: VIBRAMYCIN 100 MG PO ×2 (08:08→19:56)
[2023-11-24] MEDS: NOVOLOG FLEXPEN-LOW RESISTANCE 1 UNITS SC ×2 (08:08→16:59)
[2023-11-24] MEDS: SODIUM BICARBONATE 1300 MG PO ×2 (08:08→19:56)
[2023-11-24] MEDS: LIPITOR 20 MG PO (08:09)
[2023-11-24] MEDS: ASPIR LOW (ENTERIC COATED) 81 MG PO (08:09)
[2023-11-24] MEDS: HEPARIN 5000 UNITS SC ×2 (08:09→19:56)
[2023-11-24] MEDS: COREG 3.125 MG PO ×2 (08:09→19:56)
[2023-11-24] MEDS: ROCEPHIN 2000 MG IV (08:10)
[2023-11-24] MEDS: STERILE WATER FOR INJECTION 20 ML IV (08:27)
--- NOTE | 2023-11-24 09:43 | PTCARENOTE ---
Assumed care of patient at beginning of this shift with high flow n/c set at 55L 60% and POx 94%. Lungs with scattered crackles t/o; patient denies SOB. T99.8. Dr Olivares in to see patient; IRAD consulted for placement of HD catheter. They called
and will do at bedside this morning; Dr Becker updated and will contact HD RN for dialysis treatment time. Meds added/adjusted by Dr Olivares; see updated orders. Patient for CT chest, will need to coordinated with respiratory therapist after HD cath
placement; Ivett STANLEY aware. See worklist for full assessment and vital signs; see MAR for med administration.
--- NOTE | 2023-11-24 12:05 | CON.PUL ---
Consultation
Consultation Request
Date/Time Consultation Requested: 11/24/2023
Date/Time Consultation Performed: 11/24/2023
Requesting Provider: Dr. Read
Performing Provider: Dr. Vinayak Diaz
Reason for Consultation: Acute hypoxemic respiratory failure
Medical History
-
History of Present Illness:
78-year-old male with history of chronic kidney disease stage III, hypertension, hyperlipidemia, diabetes who presented with poor appetite, weight loss and debilitation on admission. Admitted initially for sepsis/pneumonia with acute kidney injury.
Hypoxic requiring 3 L of supplemental oxygen on admission.
On 11/23/2023 condition deteriorated with worsening oxygenation requiring high flow oxygen. There was concerns for volume overload on top of pneumonia as the patient has chronic kidney disease with poor urinary output on top of pneumonia.
He was transferred to the intermediate care unit at that time.
Patient underwent dialysis catheter placement on the right IJ.
Chest x-ray showed cardiomegaly possible layering pleural effusion with stable left lower lobe infiltrate.
Past Medical History
Past Medical History: Other (See assessment and plan section)
Social History
Tobacco: Non-smoker
Alcohol: None
Drug: None
Family History
Family History: Reviewed & Not Pertinent
Allergies / Home Medications
Allergies
Allergy/AdvReac Type Severity Reaction Status Date / Time
No Known Allergies Allergy Verified 11/22/23 16:09
Home Medications
�Medication �Instructions �Recorded �Confirmed �Last Taken �Type
aspirin 81 mg tablet,delayed 81 mg PO DAILY Blood Clot 11/22/23 11/22/23 Unknown History
release Prevention/Tx
calcitriol 0.25 mcg capsule 0.25 mcg PO MOWEFR Supplement 11/22/23 11/22/23 11/22/23 History
carvedilol 25 mg tablet (Coreg) 25 mg PO BID Blood Pressure 11/22/23 11/22/23 11/22/23 History
insulin glargine 100 unit/mL (3 4 unit SC QPM Diabetes 11/22/23 11/22/2324 History
mL) subcutaneous pen (Lantus
Solostar U-100 Insulin)
latanoprost 0.005 % eye drops 1 drp BOTH EYES HS Eye Condition 11/22/23 11/22/23 11/21/23 History
nifedipine 90 mg tablet,extended 90 mg PO DAILY Blood Pressure 11/22/23 11/22/23 11/22/23 History
release 24 hr
simvastatin 40 mg tablet (Zocor) 40 mg PO DAILY High Cholesterol 11/22/23 11/22/23 11/22/23 History
sodium bicarbonate 650 mg tablet 1,300 mg PO BID Electrolyte 11/22/23 11/22/23 11/21/23 History
Repletion
Review of Systems
-
History Source: Patient
All other systems: Negative unless noted
Vitals / Labs / Diagnostic Testing
Vital Signs
Temp Pulse Resp BP Pulse Ox
100.5 F H 84 20 97/60 93
11/24/23 03:21 11/24/23 11:00 11/24/23 11:00 11/24/23 11:00 11/24/23 11:00
Lab Data
11/24/23 04:25
11/24/23 04:25
Microbiology
11/23/23 02:07 Blood/Venous Blood Culture - Preliminary
No Growth in 24 hours- Final report to follow
11/23/23 01:53 Nasal Swab Influenza Types A & B (BRODIE) - Final
Negative for Influenza A & B, NAAT
Negative results must be combined with clinical observations
and patient history.
Nucleic Acid Amplification test (NAAT)performed on the
[employer] platform.
Diagnostic Testing:
Physical Exam
-
HEENT: Normocephalic
Cardiovascular: S1/S2
Respiratory: Clear and Non-Labored Respirations
GI: Soft and Non Distended
Neurology: Awake, Alert, Oriented and AO x 3
Skin: Warm
General: Respiratory Distress (n)
Assessment
-
78-year-old male with multiple medical problems initially admitted with weakness/lethargy. Found to be hypoxemic with a left lower lobe infiltrate. On 11/23/2023 condition deteriorated with worsening mental status, worsening hypoxemia. To the
intermediate care unit for high flow oxygen. Patient appeared to be uremic with BUN greater than 100 and creatinine of 9. We were consulted for hypoxemia.
Acute hypoxemic respiratory failure: Suspect mainly driven by volume overload from chronic kidney disease/on top of pneumonia
Currently on high flow oxygen
Bacterial pneumonia suspected. Left lower lobe based on x-ray
Chest x-ray: Cardiomegaly with left lower lobe abnormality.
No leukocytosis
Fever
Acute kidney injury on chronic kidney disease: BUN 1 around 9/creatinine 9.1
Anion gap metabolic acidosis
Fatigue/failure to thrive: Possibly from uremia.
Conditions present prior admission:
Chronic normocytic anemia related to chronic kidney disease
Chronic thrombocytopenia
Hypertension
Hyperlipidemia
Type 2 diabetes
Chronic kidney disease
Assessment and plan:
Clinical condition deteriorated since yesterday-worsening oxygen demands
Currently on high flow- 60% FIO2 55L. Wean as able.
Volume overload/pneumonia as above.
Chest x-ray 11/24/2023-showed cardiomegaly. Left lower lobe abnormality. Similar to prior. Underwhelming for amount of infiltrate plan
CT chest performed this morning 11/24/2023: Showed cardiomegaly. Left lower lobe atelectasis and large infiltrate. Bilateral small pleural effusions. Wait for official report.
Ongoing fevers noted.
No leukocytosis.
-
Start secretion clearance interventions- atelectasis with mucus on LLL noted on CT.
Incentive spirometry
Acapella device
Nebulizers albuterol/DuoNeb 3 times a day to aid with secretion clearance
If this is not effective may need to use percussion therapy.
-
Nephrology correspondence reviewed
Dialysis catheter has been placed
HD started on 11/24/2023
Follow electrolytes closely
Workup ongoing
-
Agree with therapy for community-acquired pneumonia given ongoing fevers
Cultures� So far negative.
sputum culture if able
Blood cultures negative so far
Influenza negative
-
Glycemic control-maintain blood sugars 140 -180
-
DVT prophylaxis with SCDs. Heparin subcu.
[2023-11-24 12:35] LABS: Glucose - Point of Care 114 mg/dl (70-99)
[2023-11-24] MEDS: RETACRIT 8000 UNITS IV (12:35)
[2023-11-24] MEDS: MANNITOL 25% 12.5 GRAMS IV ×2 (12:35→13:22)
[2023-11-24] MEDS: NOVOLOG FLEXPEN-LOW RESISTANCE SC (12:48)
--- NOTE | 2023-11-24 13:16 | W.PN.NEPH.HD ---
Assessment
-
patient initiated on HD today because of concern uremia, overload
tolerating well
comfortable on HD
Progress Note - Hemodialysis
-
Date of Service: November 24, 2023
Duration: 2 hours
Potassium Bath: 3
Calcium Bath: 2.5
Opti-Dialyzer: 160
Blood Flow: 200
Dialysate Flow: Other (400)
EPO: 8K
[2023-11-24] MEDS: DUONEB 3 ML INH ×2 (14:34→20:08)
[2023-11-24 16:54] LABS: Glucose - Point of Care 162 mg/dl (70-99)
[2023-11-24] MEDS: LANTUS 0.0400000000000000008 UNITS SC (18:01)
[2023-11-24 21:37] LABS: Glucose - Point of Care 199 mg/dl (70-99)
[2023-11-24] MEDS: TYLENOL 650 MG PO (21:53)
[2023-11-24] MEDS: LOPRESSOR 5 MG IV (22:06)
--- NOTE | 2023-11-24 23:27 | PTCARENOTE ---
PT WENT INTO RAPID AFIB 150'S- FEVER 101- TYLENOL GIVEN- EKG COMPLETED- WRITER ORDERED LOPRESSOR IV X1- SEE MAR- RATE IS MORE CONTROLLED- 110-120- PT WAS SLIGHTLY ASYMPTOMATIC WITH 150 RATE BUT FEELS BETTER NOW
[2023-11-25] VITALS (33 sets, daily range): BP systolic 89–138; BP diastolic 50–117; BMI 27.8
[2023-11-25] MEDS: ROCALTROL 0.25 MCG PO (00:53)
[2023-11-25] MEDS: LOPRESSOR 5 MG IV (06:15)
--- NOTE | 2023-11-25 06:27 | PTCARENOTE ---
afib back into the 150's- cytology manager ordered prn lopressor- lopressor given see mar
[2023-11-25 07:58] LABS: Glucose - Point of Care 164 mg/dl (70-99)
[2023-11-25] MEDS: DUONEB 3 ML INH ×3 (08:14→19:23)
[2023-11-25] MEDS: NOVOLOG FLEXPEN-LOW RESISTANCE 1 UNITS SC (08:30)
[2023-11-25] MEDS: ROCEPHIN 2000 MG IV (08:30)
[2023-11-25] MEDS: STERILE WATER FOR INJECTION 20 ML IV (08:31)
[2023-11-25] MEDS: ASPIR LOW (ENTERIC COATED) 81 MG PO (08:31)
[2023-11-25] MEDS: HEPARIN 5000 UNITS SC (08:31)
[2023-11-25] MEDS: VIBRAMYCIN 100 MG PO ×2 (08:31→20:23)
[2023-11-25] MEDS: SODIUM BICARBONATE 1300 MG PO ×2 (08:33→20:23)
[2023-11-25] MEDS: COREG 3.125 MG PO (08:33)
[2023-11-25] MEDS: LIPITOR 20 MG PO (08:33)
[2023-11-25 09:20] LABS: % Immature Granulocytes 0.8 % (0-0.5); % Lymphocytes 8.9 % (20.5-51.1); % Monocytes 5.9 % (1.7-9.3); % Neutrophils 84.4 % (42.2-75.2); Absolute Immature Granulocytes 0.1 10^3/uL (0-0.05); Absolute Lymphocytes 0.6 10^3/uL (1.2-3.4); Absolute Monocytes 0.4 10^3/uL (0.1-0.6); Absolute Neutrophils 5.6 10^3/uL (1.4-6.5); Hematocrit 25.3 % (39.0-52.0); Hemoglobin 8.7 g/dL (13.0-18.0); Mean Corp Hgb Conc. 34.4 g/dL (33.0-37.0); Mean Corpuscular Hgb 29.6 pg (27.0-31.0); Mean Corpuscular Volume 86.1 fL (80.0-94.0); Mean Platelet Volume 11.8 fL (7.4-10.4); Nucleated Red Blood Cells % 0 % (-); Platelet Count 103 10^3/uL (130-400); Red Blood Cell Count 2.94 10^6/uL (4.70-6.10); Red Cell Dist. Width 12.7 % (11.5-14.5); White Blood Cell Count 6.7 10^3/uL (4.8-10.8)
--- NOTE | 2023-11-25 10:13 | W.PN.PUL.V3 ---
Today's Communication / Plan
-
Wean oxygen.
Fluid removal/hemodialysis.
Antibiotics.
Atrial fibrillation, rate controlled.
Anticoagulation
Assessment
-
78-year-old male with multiple medical problems initially admitted with weakness/lethargy. Found to be hypoxemic with a left lower lobe infiltrate. On 11/23/2023 condition deteriorated with worsening mental status, worsening hypoxemia. To the
intermediate care unit for high flow oxygen. Patient appeared to be uremic with BUN greater than 100 and creatinine of 9. We were consulted for hypoxemia.
Acute hypoxemic respiratory failure: Suspect mainly driven by volume overload from chronic kidney disease/on top of pneumonia
Currently on high flow oxygen
Bacterial pneumonia suspected. Left lower lobe based on x-ray
Chest x-ray: Cardiomegaly with left lower lobe abnormality.
No leukocytosis
Fever
Acute kidney injury on chronic kidney disease: BUN 1 around 9/creatinine 9.1
Anion gap metabolic acidosis
Fatigue/failure to thrive: Possibly from uremia.
Conditions present prior admission:
Chronic normocytic anemia related to chronic kidney disease
Chronic thrombocytopenia
Hypertension
Hyperlipidemia
Type 2 diabetes
Chronic kidney disease
Plan
Respiratory status relatively stable.
Continues on high flow oxygen-attempt to wean.
Incentive spirometry.
Acapella.
Duo nebs.
Aspiration precautions.
Follow chest x-ray.
Diuresis as tolerated
Nephrology follow-correspondence reviewed.
Hemodialysis started 11/24/23 and scheduled for 11/25/23.
Cardiology evaluation.
Check echocardiogram.
Atrial fibrillation, rate controlled.
Anticoagulation
Cultures reviewed...
Continue empiric antibiotics
Sputum culture if able
Monitor blood sugar.
Insulin supplementation as needed.
DVT prophylaxis-now on Eliquis
Nutrition
Bedside range of motion/his therapy
Data
Chest x-ray 11/24/2023-showed cardiomegaly. Left lower lobe abnormality. Similar to prior. Underwhelming for amount of infiltrate plan
CT chest performed this morning 11/24/2023: Showed cardiomegaly. Left lower lobe atelectasis and large infiltrate. Bilateral small pleural effusions. Wait for official report
Subjective Data
-
Date of Service:
Date of Service: November 25, 2023
Chief Complaint: Pulmonary Follow Up and Dyspnea Follow Up
Subjective:
No complaints of worsening shortness of breath, no complaints of pain
Review of Systems
General: Other (.)
Objective Data
Data Reviewed
Vital Signs / I&O:
Vital Signs
Temp Pulse Resp BP Pulse Ox
98.9 F 136 21 105/76 93
11/25/23 07:35 11/25/23 08:33 11/25/23 08:32 11/25/23 08:33 11/25/23 08:32
Intake and Output
11/24/23 11/25/23 11/26/23
06:59 06:59 06:59
Intake Total 180 / 180
Output Total 150 / 150 200 / 200
Balance 30 / 30 -200 / -200
SaO2: 93
Nasal Cannula flow liters per minute: 50
Physical Exam
General: Respiratory Distress (n) and Comfortable
HEENT: Normocephalic and Anicteric
Respiratory: Wheeze (n), Crackles ( basilar), Rhonchi ( expiratory), Non-Labored Respirations, Accessory Resp Muscle Use (n) and Stridor (n)
GI: Soft, Non Distended and Non Tender
Neurology: Awake, Alert and No Motor Deficits
Skin: Warm, Good Color, Cyanosis (n), Jaundice (n) and Rash (n)
Labs/Micro/Reports
Lab Data
11/25/23 09:06
Microbiology
11/23/23 02:07 Blood/Venous Blood Culture - Preliminary
No Growth in 48 hours- Final report to follow
11/23/23 01:53 Nasal Swab Influenza Types A & B (BRODIE) - Final
Negative for Influenza A & B, NAAT
Negative results must be combined with clinical observations
and patient history.
Nucleic Acid Amplification test (NAAT)performed on the
[employer] platform.
[2023-11-25 10:14] LABS: ALT (SGPT) 74 U/L (0-50); AST (SGOT) 91 U/L (17-59); Albumin 2.9 g/dl (3.5-5.0); Alkaline Phosphatase 63 U/L (38-126); Blood Urea Nitrogen 100 mg/dl (9-20); Calcium 8.2 mg/dl (8.4-10.2); Carbon Dioxide 20 mmol/L (22-30); Chloride 101 mmol/L (98-107); Estimated Creatinine Clearance 8 ml/min; Glucose 205 mg/dl (70-99); Potassium 4.1 mmol/L (3.5-5.1); Sodium 134 mmol/L (135-145); Total Bilirubin 0.6 mg/dl (0.2-1.3); Total Protein 5.5 g/dl (6.3-8.2); eGFR 6.53
[2023-11-25] MEDS: CARDIZEM 10 MG IV (10:31)
--- NOTE | 2023-11-25 10:48 | CON.CAR ---
Addendum entered and electronically signed by Patricio Clifton MD 11/25/23 13:16:
I saw and examined the patient.
The WOOD CUT ENGRAVER's note was reviewed and I agree with the note.
Comment: Afib onset 11/24/2023 at just about 2115 hrs. Now on IV dilt rate is OK. No symptoms from new AF but he is at rest. Dr. Campbell is OK with Eliquis and I reviewed the risks/benefits/alternatives wtih the patient and reviewed the patient's
on HD are at increased risk for both stroke and bleeding and some docs do not anticoagulate these patients but that we feel the risks are acceptable at this time. Hope he spontaneously converts to sinus as his overall medical condition improves.
Will check echo to assess heart muscle/valves/pericardium.
Original Note:
Consultation
Consultation Request
Date/Time Consultation Requested: 11/25/23 1025
Date/Time Consultation Performed: 11/25/23 1040
Requesting Provider: Dr. Campbell
Performing Provider: Ember NAVARRETE for Dr. Clifton
Reason for Consultation: AFIB
Medical History
-
Chief Complaint: weakness, poor appetite, weight loss
History of Present Illness:
78 y/o male with hypertension, dyslipidemia, diabetes, CKD, and LE edema who presented to the hospital with weakness, poor appetite, and weight loss. He was admitted with sepsis and DAMARI on CKD. He is seen to have PNA and is being treated with ABX
and is on high-flow O2. He had HD yesterday. In the setting of acute illness, AFIB with RVR has been seen since last night. He was given 2 doses of IV BB, as well as his typical coreg, but it remained fast and he is now on dilt drip with more
controlled rates. He is not symptomatic with this and denies any known history of AFIB. Has seen associate marketing manager at [place] for HTN per patient.
Past Medical History
Past Medical History: HTN, Hypercholesterolemia, NIDDM (on insulin), Renal Failure and Other (LE edema)
Social History
Tobacco: Non-Smoker
Alcohol: None
Personal:
Living: With Family
Family History
Family History: Reviewed & Not Pertinent
Allergies / Home Medications
Allergy/AdvReac Type Severity Reaction Status Date / Time
No Known Allergies Allergy Verified 11/22/23 16:09
�Medication �Instructions �Recorded �Confirmed �Type
aspirin 81 mg tablet,delayed 81 mg PO DAILY Blood Clot 11/22/23 11/22/23 History
release Prevention/Tx
calcitriol 0.25 mcg capsule 0.25 mcg PO MOWEFR Supplement 11/22/23 11/22/23 History
carvedilol 25 mg tablet (Coreg) 25 mg PO BID Blood Pressure 11/22/23 11/22/23 History
insulin glargine 100 unit/mL (3 4 unit SC QPM Diabetes 11/22/23 11/22/23 History
mL) subcutaneous pen (Lantus
Solostar U-100 Insulin)
latanoprost 0.005 % eye drops 1 drp BOTH EYES HS Eye Condition 11/22/23 11/22/23 History
nifedipine 90 mg tablet,extended 90 mg PO DAILY Blood Pressure 11/22/23 11/22/23 History
release 24 hr
simvastatin 40 mg tablet (Zocor) 40 mg PO DAILY High Cholesterol 11/22/23 11/22/23 History
sodium bicarbonate 650 mg tablet 1,300 mg PO BID Electrolyte 11/22/23 11/22/23 History
Repletion
Review of Systems
-
History Source: Patient
All other systems: Negative unless noted
Constitutional: Fever and Weight Loss
Respiratory: Trouble Breathing
Neurological: Weakness
Physical Exam
Vital Signs
Temp Pulse Resp BP Pulse Ox
98.9 F 144 21 110/60 93
11/25/23 07:35 11/25/23 10:31 11/25/23 08:32 11/25/23 10:31 11/25/23 10:13
Lab Results
11/25/23 09:06
11/25/23 09:06
Physical Exam
General: Well Developed, Well Nourished and No Apparent Distress
HEENT: Normocephalic and Anicteric
Respiratory: Other (on high-flow O2; lungs diminished throughout)
Cardiac: Irregular Rhythm and Peripheral Edema (mild BLE edema (chronic per patient since the past year))
Musculoskeletal: Edema
Skin: Warm and Dry
Neuro: AO x 3
Psych: Calm
Impression / Plan
-
Pneumonia:
-on high flow O2
-on ABX
DAMARI on CKD:
-received dialysis yesterday
-management per nephrology
AFIB, new diagnosis:
-in setting of acute illness- treat underlying process as above
-rates better controlled on diltiazem drip- will continue for now- this requires intensive monitoring
-echo, TSH
-[id number] score is at least 4 for age, HTN, DM- denies bleeding issues or falls. Is noted to have anemia and thrombocytopenia (unknown baseline), however no clinical bleeding. Stop ASA and start Eliquis if okay with team- will review.
HTN:
-monitor on dilt drip
-on nifedipine and coreg as OP
Data Reviewed
-
EKG: Tracing Personally Visualized and interpreted (AFIB with RVR 137 BPM)
Radiology: Report Reviewed by me (CXR 11/23/23: Large dense left lower lobe airspace consolidation and moderate amount of airspace opacity in the inferior left upper lobe which has increased since earlier in the day. Enlarged left hilum suspicious for
lymphadenopathy. Mild right lower lobe airspace opacity. Mild cardiomegaly.)
Labs: Labs Reviewed by me
--- NOTE | 2023-11-25 11:15 | W.PN.HOSP.TC ---
Today's Communication/Plan
-
HD.
Consider holding bicarb.
IV Cardizem
Echo.
IV antibiotics.
Attempt to wean off oxygen
Assessment / Plan
Assessment / Plan
Impression:
Acute hypoxemic respiratory failure
� Likely secondary to volume overload with progressive renal disease, versus pneumonia.
Bilateral bacterial pneumonia suspected.
Acute kidney injury on chronic kidney disease requiring hemodialysis initiation over this admission
Increased anion gap metabolic acidosis
Atrial fibrillation with rapid ventricular response, new onset
Failure to thrive
Conditions prior to admission:
CKD stage IV.
Anemia of chronic disease/CKD
Essential hypertension
Dyslipidemia
Type 2 diabetes
Plan
Acute hypoxic respiratory failure -likely multifactorial etiology including renal failure induced pulmonary edema, possible pneumonia, etc.
Remains with higher oxygen requirements
Repeat chest x-ray from 11/22 shows large dense left lower lobe airspace consolidation and moderate amount of airspace opacity in the inferior left upper lobe, worsened compared to the prior day. Mild right lower airspace opacity.
Transitioned to high flow nasal cannula yesterday with improvement in oxygenation.
Sepsis -possibly due to pneumonia present on admission now resolved. CT scan of the chest 11/23: Consolidative parenchymal opacity involving most of the left lower lobe, compatible with consolidative pneumonia. There is also patchy groundglass
parenchymal opacity within the posterior aspect of the adjacent left upper lobe and the lingula, compatible with pneumonia but less consolidative.
Hemodynamically stable. No fevers at home but did have chills. Denies abdominal pain. Urinalysis without significant pyuria. COVID-19 negative, influenza negative. Blood cultures negative so far. Will change antibiotics to ceftriaxone and
doxycycline to cover community-acquired pneumonia. Follow-up imaging with initiation of hemodialysis
DAMARI on CKD 4 -suspect progression of renal failure and likely approaching ESRD. Nongap metabolic acidosis noted. Oliguric. Continue sodium bicarb.
He is uremic given significant anorexia and weight loss.
Plan is for hemodialysis initiation.
IR consulted for temporary dialysis catheter placement.
Escalera catheter inserted. Bladder scan was 237 cc prior to insertion.
Atrial fibrillation with rapid ventricular response
Hemodynamically stable.
Hold Coreg.
Initiate IV Cardizem drip
Echocardiogram.
Cardiology consultation
CHADSVASC2 5 (CHF, hypertension, diabetes, age). Further determination of timing and anticoagulation.
Normocytic anemia -follow hemoglobin
Thrombocytopenia -follow daily
Essential HTN -stable.
DM2 with hyperglycemia -hemoglobin A1c 5.5. Continue preadmission regimen including Lantus 4 units. Continue serial Accu-Cheks and low-dose basal bolus protocol.
Hyperlipidemia -on Zocor.
Full code
Anticipated Discharge: > 48 hours
Subjective/Interval History
-
Date of Service: November 25, 2023
Objective Data
-
Labs:
Laboratory Results
11/25/23
09:06
WBC 6.7
Hgb 8.7 L
Hct 25.3 L
Plt Count 103 L
Sodium 134 L
Potassium 4.1
Chloride 101
Carbon Dioxide 20 L
BUN 100 H
Creatinine 7.9 H*
Glucose 205 H
Calcium 8.2 L
Total Bilirubin 0.6
AST 91 H
ALT 74 H
Alkaline Phosphatase 63
Vital Signs:
Vital Signs
Temp Pulse Resp BP Pulse Ox
98.9 F 125 15 118/60 93
11/25/23 07:35 11/25/23 10:33 11/25/23 10:33 11/25/23 10:51 11/25/23 10:31
I&O
11/24/23 11/25/23 11/26/23
06:59 06:59 06:59
Intake Total 180 / 180
Output Total 150 / 150 200 / 200
Balance 30 / 30 -200 / -200
Physical Exam
-
General: Well Developed and No Apparent Distress
HEENT: Normocephalic, Atraumatic and Moist Mucous Membranes
Respiratory: Clear to Auscultation
Cardiac: S1/S2, Irregular Rhythm, Tachycardic and Other (Bilateral lower extremity edema); Negative Murmur, Rub or Gallop
GI: Soft, Nontender, Nondistended and Normal Bowel Sounds; Negative Organomegaly
Rectal: Deferred by Provider
Musculoskeletal: No Clubbing, No Cyanosis and No Edema
Skin: Negative Rash
Neuro: Awake, Alert, Oriented, AO x 3 and Nonfocal/Grossly Intact
[2023-11-25] MEDS: MIRALAX 17 GRAMS PO (11:23)
[2023-11-25] MEDS: NOVOLOG FLEXPEN-LOW RESISTANCE 3 UNITS SC (11:40)
[2023-11-25 11:47] LABS: Glucose - Point of Care 266 mg/dl (70-99)
[2023-11-25 12:45] LABS: TSH Reflex To Free T4 1.94 uIU/ml (0.47-4.68)
--- NOTE | 2023-11-25 12:52 | PTCARENOTE ---
Rec'd pt this AM. Pt in Rapid A fib. Dr. Campbell notified. Cardiology MILL WORKER assessed pt. Cardizem bolus 10mg given as ordered prior to starting Cardizem gtt at 5mg/hour. HR significantly improved to 80-100. BP stable. resting comfortably. Currently
receiving HD
[2023-11-25] MEDS: MANNITOL 25% 12.5 GRAMS IV ×2 (13:08→14:42)
[2023-11-25] MEDS: RETACRIT 8000 UNITS IV (13:08)
[2023-11-25] MEDS: ELIQUIS 5 MG PO (13:52)
--- NOTE | 2023-11-25 14:25 | CM ---
Addendum entered by Joyce Tian 11/25/23 14:30:
Met with patient at bedside, initial assessment completed
Pharmacy verified; chart updated: [facility], [place]
Patient and his live in a townhouse; 2 steps to enter; 5 steps between floors; powder room 1st floor; 2nd floor bath has tub w/ shower
PLOF: Retired from ; reported he is independent with ADLs, ambulates with rolling walker; was driving
SNF/Rehab/Home Health utilization history: none
Transportation: will provide ride home
New to Hemodialysis; 2nd treatment today
Plan: to be determined pending hospital course; CM will monitor and support DC needs when medically stable
Original Note:
Case Management Consult completed
Out of pocket cost for Eliquis 5 mg Bid, 30 day supply is $345.27
Out of pocket cost for Xarelto 15 mg/day, 30 day supply is $345.27; Patient may be eligible for [employer] coverage support
Attending notified/acknowledged [place] [employer]
--- NOTE | 2023-11-25 15:53 | W.PN.NEPH.HD ---
Assessment
-
pt seen during HD
vitals stable
had Afib with RVR on cardizem gtt -rate controlled
only minimal UF
wean O2 as tolerated
temp CVC functions well
Progress Note - Hemodialysis
-
Date of Service: November 25, 2023
Duration: 3 hours
Potassium Bath: 3
Calcium Bath: 2.5
Opti-Dialyzer: 160
Ultrafiltration: Other (05kg)
Blood Flow: 350
Dialysate Flow: 600
Heparin: no
EPO: 8000
[2023-11-25 16:29] LABS: Glucose - Point of Care 132 mg/dl (70-99)
[2023-11-25] MEDS: NOVOLOG FLEXPEN-LOW RESISTANCE SC (16:56)
[2023-11-25] MEDS: LANTUS 0.0400000000000000008 UNITS SC (18:06)
--- NOTE | 2023-11-25 18:22 | PTCARENOTE ---
Pt's HR well controlled on Cardizem gtt. Tolerated HD today well. Resting comfortably. Vital signs stable.
[2023-11-25 18:52] LABS: Hepatitis B Surface Antigen Negative (Negative)
[2023-11-25 19:09] LABS: Hepatitis B Surface Antibody Positive
--- NOTE | 2023-11-25 20:48 | PTCARENOTE ---
Received pt at change of shift. Cardizem gtt running at 10 mg/hr. HR in the 80s. Decreased gtt to 5 mg/hr per protocol. Pt no longer in AFib. NSR with frequent PACs and PVCs. Irregular apical. High flow settings at 55% and 50L; tolerating
well. Fine crackles in b/l bases. No c/o SOB. Resting in bed with call lu in reach.
--- NOTE | 2023-11-25 21:13 | PTCARENOTE ---
HR remains in the 80s-90s with cardizem gtt running at 5 mg/hr. Notified [employer]. Told to leave gtt running at 5 mg/hr. Pt offers no complaints at this time.
[2023-11-25 21:16] LABS: Glucose - Point of Care 214 mg/dl (70-99)
[2023-11-25] MEDS: XARELTO 15 MG PO (22:52)
[2023-11-26] VITALS (28 sets, daily range): BP systolic 113–155; BP diastolic 61–92; PULSE 104; O2SAT 92; BMI 28.0
[2023-11-26] MEDS: CARDIZEM 125 IV (03:18)
[2023-11-26] MEDS: DUONEB 3 ML INH ×3 (07:13→19:24)
[2023-11-26 08:16] LABS: Hematocrit 25.1 % (39.0-52.0); Hemoglobin 8.4 g/dL (13.0-18.0); Mean Corp Hgb Conc. 33.5 g/dL (33.0-37.0); Mean Corpuscular Hgb 28.5 pg (27.0-31.0); Mean Corpuscular Volume 85.1 fL (80.0-94.0); Mean Platelet Volume 11.4 fL (7.4-10.4); Platelet Count 124 10^3/uL (130-400); Red Blood Cell Count 2.95 10^6/uL (4.70-6.10); Red Cell Dist. Width 12.7 % (11.5-14.5); White Blood Cell Count 6.3 10^3/uL (4.8-10.8)
[2023-11-26] MEDS: MANNITOL 25% 12.5 GRAMS IV ×2 (08:34→09:40)
[2023-11-26] MEDS: FLEXBUMIN 25% FOR HEMODIALYSIS 12.5 GRAMS IV ×2 (08:34→09:57)
[2023-11-26] MEDS: RETACRIT 10000 UNITS IV (08:34)
--- NOTE | 2023-11-26 08:52 | W.PN.CD ---
Today's Communication / Plan
-
-
-
Continue senior living oral anticoagulation if he tolerates it
Continue beta bernard
For now just watch with HD for volume control. Later consider GDMT (most not proven to benefit patients on HD)
-
-
Impression / Plan
-
New AFib, paroxysmal
- Afib onset t 11/24/2023 at just about 2115 hrs and it converted to sinus w/o bradycardia about 1741 hours on 11/25/2023.
- Now on Xarelto (more affordable than our preferred Eliquis)
- I stopped IV dilt
- I increased Coreg slightly. TSH normal
- [id number] at least [id number] score is at least 5 (cardiomyopathy, HTN, age2, DM)
- Now off ASA
Cardiomyopathy, LVEF 40%
- Limited data on med rx
- Will use HD for volume control
- Later can consider further GDMT
Pneumonia
DAMARI on CKD:
-received dialysis yesterday
-management per nephrology
Anemia, monitor
HTN
Subjective:
No CP, dyspnea, palpitations now in sinus or yesterday with AFib
Physical Exam
Vital Signs/Labs
Vital Signs
Temp Pulse Resp BP Pulse Ox
97.9 F 85 20 135/78 93
11/26/23 07:43 11/26/23 07:13 11/26/23 07:13 11/26/23 06:00 11/26/23 07:21
11/25/23 11/26/23 11/27/23
06:59 06:59 06:59
Actual Weight 87.997 kg 88.4 kg
11/26/23 07:41
Physical Exam
Constitutional: No acute distress
EENT: Anicteric
Cardiovascular: Rhythm & rate is regular and Pedal edema is absent
Respiratory: Respiratory effort normal and Lungs clear to auscul.
GI: Soft and Distention absent
Neuro/Psych: Alert
Data Reviewed
-
Date of Service: November 26, 2023
[2023-11-26 09:18] LABS: Blood Urea Nitrogen 65 mg/dl (9-20); Calcium 8.2 mg/dl (8.4-10.2); Carbon Dioxide 25 mmol/L (22-30); Potassium 3.8 mmol/L (3.5-5.1); Sodium 136 mmol/L (135-145)
[2023-11-26 09:32] LABS: Chloride 100 mmol/L (98-107); Estimated Creatinine Clearance 11 ml/min; Glucose 130 mg/dl (70-99); eGFR 9.27
--- NOTE | 2023-11-26 09:43 | W.PN.PUL.V3 ---
Today's Communication / Plan
-
Hemodialysis
Wean oxygen
Atrial fibrillation rate control
Assessment
-
78-year-old male with multiple medical problems initially admitted with weakness/lethargy. Found to be hypoxemic with a left lower lobe infiltrate. On 11/23/2023 condition deteriorated with worsening mental status, worsening hypoxemia. To the
intermediate care unit for high flow oxygen. Patient appeared to be uremic with BUN greater than 100 and creatinine of 9. We were consulted for hypoxemia.
Acute hypoxemic respiratory failure: Suspect mainly driven by volume overload from chronic kidney disease/on top of pneumonia
Currently on high flow oxygen
Bacterial pneumonia suspected. Left lower lobe based on x-ray
Chest x-ray: Cardiomegaly with left lower lobe abnormality.
No leukocytosis
Fever
Acute kidney injury on chronic kidney disease: BUN 1 around 9/creatinine 9.1
Anion gap metabolic acidosis
Fatigue/failure to thrive: Possibly from uremia.
Conditions present prior admission:
Chronic normocytic anemia related to chronic kidney disease
Chronic thrombocytopenia
Hypertension
Hyperlipidemia
Type 2 diabetes
Chronic kidney disease
Plan
Respiratory status slowly improving-as dialysis progresses
Continues on high flow oxygen-attempt to wean.
Incentive spirometry.
Acapella.
Duo nebs as needed
Aspiration precautions.
Follow chest x-ray.
Diuresis as tolerated
Nephrology follow-correspondence reviewed.
Hemodialysis started 11/24/23, 11/25/23, and will receive 12/15-goal -2 L
Cardiology evaluation ongoing
Echocardiogram 11/25/2023-EF 40%, severe left atrial dilation, no significant valvular abnormalities, rhythm atrial fibrillation
Atrial fibrillation, rate controlled.
Anticoagulation
Cultures reviewed...
The patient continues with empiric antibiotics
Unable to produce sputum
Follow blood sugar.
Insulin supplementation as needed.
DVT prophylaxis-now on Eliquis
Nutrition
Bedside range of motion/his therapy
Reviewed with nursing and hemodialysis nurse
Data
Chest x-ray 11/24/2023-showed cardiomegaly. Left lower lobe abnormality. Similar to prior. Underwhelming for amount of infiltrate plan
CT chest performed this morning 11/24/2023: Showed cardiomegaly. Left lower lobe atelectasis and large infiltrate. Bilateral small pleural effusions. Wait for official report
Subjective Data
-
Date of Service:
Date of Service: November 26, 2023
Chief Complaint: Pulmonary Follow Up and Dyspnea Follow Up
Subjective:
States that he feels better, no complaints of shortness of breath, FiO2 requirements have decreased, no chest pain or abdominal pain
Review of Systems
General: Other (Per HPI)
Objective Data
Data Reviewed
Vital Signs / I&O:
Vital Signs
Temp Pulse Resp BP Pulse Ox
97.9 F 85 20 135/78 93
11/26/23 07:43 11/26/23 07:13 11/26/23 07:13 11/26/23 06:00 11/26/23 07:21
Intake and Output
11/25/23 11/26/23 11/27/23
06:59 06:59 06:59
Output Total 200 / 200 300 / 300
Balance -200 / -200 -300 / -300
SaO2: 93
Nasal Cannula flow liters per minute: 40
Physical Exam
General: Respiratory Distress (n) and Comfortable
HEENT: Normocephalic and Anicteric
Respiratory: Wheeze (n), Crackles ( basilar), Rhonchi ( expiratory), Non-Labored Respirations, Accessory Resp Muscle Use (n) and Stridor (n)
GI: Soft, Non Distended and Non Tender
Neurology: Awake, Alert and No Motor Deficits
Skin: Warm, Good Color, Cyanosis (n), Jaundice (n) and Rash (n)
Labs/Micro/Reports
Lab Data
11/26/23 07:41
11/26/23 07:41
Microbiology
11/23/23 02:07 Blood/Venous Blood Culture - Preliminary
No Growth in 72 hours- Final report to follow
11/24/23 10:02 Nose MRSA Screen - Final
No Methicillin Resistant Staphylococcus aureus isolated.
[2023-11-26 10:20] LABS: Glucose - Point of Care 133 mg/dl (70-99)
[2023-11-26] MEDS: NOVOLOG FLEXPEN-LOW RESISTANCE SC ×2 (10:22→12:25)
[2023-11-26] MEDS: STERILE WATER FOR INJECTION 20 ML IV (11:09)
[2023-11-26] MEDS: ROCEPHIN 2000 MG IV (11:10)
[2023-11-26] MEDS: HEPARIN 2200 UNITS INTRACATH (11:17)
--- NOTE | 2023-11-26 11:51 | W.PN.NEPH.HD ---
Assessment
-
pt seen during HD
vitals stable , off cardizem gtt
UF as tolerates to help with resp status
wean O2 as able
temp CVC functioning well
may need to change to tunneled HD catheter later this week
Progress Note - Hemodialysis
-
Date of Service: November 26, 2023
Duration: 30 minutes and 3 hours
Potassium Bath: 3
Calcium Bath: 2.5
Opti-Dialyzer: 160
Ultrafiltration: Other (2kg)
Blood Flow: 400
Dialysate Flow: 600
Heparin: no
EPO: [id number]
[2023-11-26 12:07] LABS: Glucose - Point of Care 118 mg/dl (70-99)
[2023-11-26] MEDS: VIBRAMYCIN 100 MG PO ×2 (12:24→20:28)
[2023-11-26] MEDS: LIPITOR 20 MG PO (12:24)
[2023-11-26] MEDS: MIRALAX PO (12:24)
[2023-11-26 12:25] LABS: Glucose - Point of Care 128 mg/dl (70-99)
[2023-11-26] MEDS: SODIUM BICARBONATE 1300 MG PO ×2 (12:25→20:28)
[2023-11-26] MEDS: MIRALAX 17 GRAMS PO (12:33)
--- NOTE | 2023-11-26 12:43 | RESPNOTE ---
Respiratory: patient changed on 6 LPM humidified O2 nasal cannula was previous on HFNC 20 L 40%. SpO2 93%.
--- NOTE | 2023-11-26 13:36 | W.PN.HOSP.TC ---
Addendum entered and electronically signed by Nikita Campbell MD 11/27/23 09:06:
typo correction should be HD not EGD
Original Note:
Today's Communication/Plan
-
EGD.
Monitor rate and rhythm.
Continue antibiotics for another 24 hours
Recheck chest x-ray in AM.
Physical therapy assessment
Attempt to wean off oxygen as tolerates.
Assessment / Plan
Assessment / Plan
Impression:
Acute hypoxemic respiratory failure
� Likely secondary to volume overload with progressive renal disease, versus pneumonia.
Bilateral bacterial pneumonia suspected.
Acute kidney injury on chronic kidney disease requiring hemodialysis initiation over this admission
Increased anion gap metabolic acidosis
Atrial fibrillation with rapid ventricular response, new onset
Failure to thrive
Conditions prior to admission:
CKD stage IV.
Anemia of chronic disease/CKD
Essential hypertension
Dyslipidemia
Type 2 diabetes
Plan
Acute hypoxic respiratory failure -likely multifactorial etiology including renal failure induced pulmonary edema, possible pneumonia, etc.
Remains with higher oxygen requirements
Repeat chest x-ray from 11/22 shows large dense left lower lobe airspace consolidation and moderate amount of airspace opacity in the inferior left upper lobe, worsened compared to the prior day. Mild right lower airspace opacity.
Attempt to wean off oxygen as tolerates
Sepsis -possibly due to pneumonia present on admission now resolved. CT scan of the chest 11/23: Consolidative parenchymal opacity involving most of the left lower lobe, compatible with consolidative pneumonia. There is also patchy groundglass
parenchymal opacity within the posterior aspect of the adjacent left upper lobe and the lingula, compatible with pneumonia but less consolidative.
Hemodynamically stable. No fevers at home but did have chills. Denies abdominal pain. Urinalysis without significant pyuria. COVID-19 negative, influenza negative. Blood cultures negative so far. Will change antibiotics to ceftriaxone and
doxycycline to cover community-acquired pneumonia. Follow-up imaging with initiation of hemodialysis.
Continue antibiotics ceftriaxone/doxycycline for another 24 hours through 11/26. Follow-up with chest x-ray on 11/26.
DAMARI on CKD 4 -suspect progression of renal failure and likely approaching ESRD. Nongap metabolic acidosis noted. Oliguric. Continue sodium bicarb.
He is uremic given significant anorexia and weight loss.
Plan is for hemodialysis initiation.
IR consulted for temporary dialysis catheter placement.
Escalera catheter inserted. Bladder scan was 237 cc prior to insertion.
Atrial fibrillation with rapid ventricular response
Hemodynamically stable.
Echocardiogram 11/24 with mild left ventricular dilation with severe left ventricular hypertrophy, mild global hypokinesis and mildly reduced left ventricular systolic function with LVEF of 40%. Severe left atrial dilation. No evidence of pulmonary
hypertension.
Transitioned off IV Cardizem drip to Coreg at increased dose
Cardiology consultation appreciated
CHADSVASC2 5 (CHF, hypertension, diabetes, age). Further determination of timing and anticoagulation.
Initiated on anticoagulation with Xarelto more affordable in comparison to Eliquis coverage.
Normocytic anemia -follow hemoglobin
Thrombocytopenia -follow daily
Essential HTN -stable.
DM2 with hyperglycemia -hemoglobin A1c 5.5. Continue preadmission regimen including Lantus 4 units. Continue serial Accu-Cheks and low-dose basal bolus protocol.
Hyperlipidemia -on Zocor.
Full code
Anticipated Discharge: 24 - 48 hours
Subjective/Interval History
-
Date of Service: November 26, 2023
Objective Data
-
Labs:
Laboratory Results
11/26/23
07:41
WBC 6.3
Hgb 8.4 L
Hct 25.1 L
Plt Count 124 L D
Sodium 136
Potassium 3.8
Chloride 100
Carbon Dioxide 25
BUN 65 H
Creatinine 5.9 H*
Glucose 130 H
Calcium 8.2 L
Vital Signs:
Vital Signs
Temp Pulse Resp BP Pulse Ox
98.4 F 88 20 132/84 93
11/26/23 11:26 11/26/23 12:00 11/26/23 12:00 11/26/23 12:00 11/26/23 12:06
I&O
11/25/23 11/26/23 11/27/23
06:59 06:59 06:59
Output Total 200 / 200 300 / 300 180 / 180
Balance -200 / -200 -300 / -300 -180 / -180
Physical Exam
-
General: Well Developed and No Apparent Distress
HEENT: Normocephalic, Atraumatic and Moist Mucous Membranes
Respiratory: Clear to Auscultation
Cardiac: Regular Rhythm and S1/S2; Negative Murmur, Rub or Gallop
GI: Soft, Nontender, Nondistended and Normal Bowel Sounds; Negative Organomegaly
Rectal: Deferred by Provider
Musculoskeletal: No Clubbing, No Cyanosis and No Edema
Skin: Negative Rash
Neuro: Nonfocal/Grossly Intact
--- NOTE | 2023-11-26 14:14 | PN.CDI ---
CDI
- -
CDI:
Physician Documentation Request
Admit Date: 11/23/23 17:04
Dear Doctor ,
Please review the following and provide your response in the progress notes.
Clinical Indicators:
Pt admitted with Sepsis 2/2 Bacterial PNA/Acute Hypoxic Respiratory Failure ADMARI on CKD 4 now on HD
Progress notes 11/23-11/25, ' Acute hypoxic respiratory failure -likely multifactorial etiology including renal failure induced pulmonary edema, possible pneumonia, etc....'
ECHO ,' Echocardiogram 11/25/2023-EF 40%, severe left atrial dilation, no significant valvular abnormalities, rhythm atrial fibrillation....Cardiology consultation appreciatedCHADSVASC2 5 (CHF, hypertension, diabetes, age). '
Per AUG pt did get IV Lasix 80 mg
Please provide a diagnosis for the above findings/Treatment of IV Lasix :
Multifactorial Acute Noncardiogenic Pulmonary Edema /Acute Systolic CHF
Acute noncardiogenic pulmonary edema only
Other (Please Specify)
Use of terms such as suspected, likely, concern for, or probable (associated with a specific diagnosis that is being evaluated, monitored, or treated as if it exists) are acceptable and can be coded in the inpatient setting, when documented at the
time of discharge.
Thank you,
Liberty May RN
CDI Specialist
[place] [facility]
Please use your independent medical judgment in providing your response.
--- NOTE | 2023-11-26 14:32 | PN.CDI ---
CDI
- -
CDI:
Physician Documentation Request
Admit Date: 11/23/23 17:04
Dear Doctor ,
Please review the following and provide your response in the progress notes.
Clinical Indicators:
Pt admitted with Sepsis 2/2 Bacterial PNA/Acute Hypoxic Respiratory Failure DAMARI on CKD 4 now on HD
Nephrology consult,' PMH of CKD Stage 4...His last Cr was 3.7.'
Progress notes 11/23-11/25,'DAMARI on CKD 4 -suspect progression of renal failure and likely approaching ESRD. Nongap metabolic acidosis noted. Oliguric. ...He is uremic given significant anorexia and weight loss....'
Progress note 11/23,' Urine output only 150 cc over past 24 hours.He is uremic given significant anorexia and weight loss. I believe he needs to start dialysis....she concurs with initiation of hemodialysis....Escalera catheter inserted. Bladder scan
was 237 cc prior to insertion...'
11/22/23 11/23/23 11/23/23
16:14 02:07 04:46
Creatinine 6.5 H* 7.4 H* 7.6 H*
eGFR 8.25 7.06 6.84
11/24/23 11/25/23 11/26/23
04:25 09:06 07:41
Creatinine 9.1 H* 7.9 H* 5.9 H*
eGFR 5.51 6.53 9.27
Clarify which of the following accurately represents the patient's renal status/requiring HD:
DAMARI with ATN on CKD 4
DAMARI on CKD 4 now progressed to ESRD
Other (please specify)
Use of terms such as suspected, likely, concern for, or probable (associated with a specific diagnosis that is being evaluated, monitored, or treated as if it exists) are acceptable and can be coded in the inpatient setting, when documented at the
time of discharge.
Thank you,
Liberty May RN
CDI Specialist
[place] [facility]
Please use your independent medical judgment in providing your response.
*Source: Kidney Disease: Improving Global Outcomes (KDIGO) 2012
[2023-11-26 16:56] LABS: Glucose - Point of Care 152 mg/dl (70-99)
[2023-11-26] MEDS: NOVOLOG FLEXPEN-LOW RESISTANCE 1 UNITS SC (17:56)
[2023-11-26] MEDS: XARELTO 15 MG PO (17:58)
[2023-11-26] MEDS: LANTUS 0.0400000000000000008 UNITS SC (17:58)
--- NOTE | 2023-11-26 18:02 | PTCARENOTE ---
patient had loose black BM,hme test reported this to Dr. Campbell and order to continue to monitor for further stools. Confirmed that I am to give the Xarelto
--- NOTE | 2023-11-26 20:12 | PTCARENOTE ---
Received pt from nieves [facility]. Pt is AAOx3. NSR w/ PVCs on the monitor. On 6L NC O2 sat 94%, lungs have crackles. Pt is oliguric. Pt is laying comfortable in bed with call lu in reach.
[2023-11-26] MEDS: COREG 6.25 MG PO (20:28)
[2023-11-26 22:28] LABS: Glucose - Point of Care 167 mg/dl (70-99)
[2023-11-26] MEDS: ROCALTROL 0.25 MCG PO (23:36)
[2023-11-27] VITALS (16 sets, daily range): BP systolic 125–171; BP diastolic 73–105; PULSE 80; O2SAT 95; BMI 27.0
[2023-11-27 05:30] LABS: Hematocrit 26.6 % (39.0-52.0); Hemoglobin 8.9 g/dL (13.0-18.0); Mean Corp Hgb Conc. 33.5 g/dL (33.0-37.0); Mean Corpuscular Hgb 28.9 pg (27.0-31.0); Mean Corpuscular Volume 86.4 fL (80.0-94.0); Mean Platelet Volume 11.4 fL (7.4-10.4); Platelet Count 137 10^3/uL (130-400); Red Blood Cell Count 3.08 10^6/uL (4.70-6.10); Red Cell Dist. Width 12.5 % (11.5-14.5); White Blood Cell Count 6.9 10^3/uL (4.8-10.8)
[2023-11-27 05:57] LABS: Blood Urea Nitrogen 45 mg/dl (9-20); Calcium 8.2 mg/dl (8.4-10.2); Carbon Dioxide 27 mmol/L (22-30); Chloride 101 mmol/L (98-107); Estimated Creatinine Clearance 16 ml/min; Glucose 124 mg/dl (70-99); Potassium 3.7 mmol/L (3.5-5.1); Sodium 137 mmol/L (135-145); eGFR 14.78
[2023-11-27] MEDS: DUONEB 3 ML INH ×3 (07:56→20:16)
[2023-11-27 08:09] LABS: Glucose - Point of Care 130 mg/dl (70-99)
[2023-11-27] MEDS: NOVOLOG FLEXPEN-LOW RESISTANCE SC ×2 (08:24→18:18)
[2023-11-27] MEDS: LIPITOR 20 MG PO (08:26)
[2023-11-27] MEDS: VIBRAMYCIN 100 MG PO ×2 (08:26→19:52)
[2023-11-27] MEDS: COREG 6.25 MG PO ×2 (08:27→19:52)
[2023-11-27] MEDS: SODIUM BICARBONATE 1300 MG PO (08:27)
[2023-11-27] MEDS: ROCEPHIN 2000 MG IV (08:28)
[2023-11-27] MEDS: STERILE WATER FOR INJECTION 20 ML IV (08:28)
[2023-11-27] MEDS: MIRALAX 17 GRAMS PO (08:29)
--- NOTE | 2023-11-27 09:08 | W.PN.CD ---
Today's Communication / Plan
-
-
I will place Xarelto on hold. He no longer wants to take it
Hospitalist aware of stool change to black and occult blood positive
Impression / Plan
-
New AFib, paroxysmal
- Afib onset t 11/24/2023 at just about 2115 hrs and it converted to sinus w/o bradycardia about 1741 hours on 11/25/2023.
- Received 2 doses Xarelto (more affordable than our preferred Eliquis) => now stool black and heme + => Xarelto on hold now
- On Coreg slightly. TSH normal
- [id number] at least [id number] score is at least 5 (cardiomyopathy, HTN, age2, DM)
- Now off ASA
Cardiomyopathy, LVEF 40%
- Limited data on med rx for patients on HD
- Will use HD for volume control
- Later can consider further GDMT
Pneumonia
DAMARI on CKD:
-received dialysis yesterday
-management per nephrology
Anemia, monitor
HTN
Subjective:
He notes BM was black and tested positive. He does not want to take a blood thinner. No CP, dyspnea, palpitations now in sinus or yesterday with AFib
Physical Exam
Vital Signs/Labs
Vital Signs
Temp Pulse Resp BP Pulse Ox
98.5 F 84 19 146/104 95
11/27/23 04:27 11/27/23 08:27 11/27/23 06:00 11/27/23 08:27 11/27/23 06:00
11/26/23 11/27/23 11/28/23
06:59 06:59 06:59
Actual Weight 88.4 kg 85.3 kg
11/27/23 05:22
11/27/23 05:22
Physical Exam
Constitutional: No acute distress
EENT: Anicteric
Cardiovascular: Rhythm & rate is regular and Pedal edema is absent
Respiratory: Respiratory effort normal and Lungs clear to auscul.
GI: Soft and Distention absent
Neuro/Psych: Alert
Data Reviewed
-
Date of Service: November 27, 2023
--- NOTE | 2023-11-27 09:48 | PTCARENOTE ---
Pt AAOx3 coof numbness in fingers DR Campbell aware. CT ordered. Pt also having heme pos stools. Dr Campbell aware. Pt does not want to take Xerelto Dr Campbell aware
--- NOTE | 2023-11-27 10:05 | W.PN.PUL.V3 ---
Today's Communication / Plan
-
Wean FiO2-significant less requirement after dialysis
Chest x-ray pending
Anticoagulation held
Follow hemoglobin
Transfuse as needed
Heme test stools
Consider GI evaluation
Assessment
-
78-year-old male with multiple medical problems initially admitted with weakness/lethargy. Found to be hypoxemic with a left lower lobe infiltrate. On 11/23/2023 condition deteriorated with worsening mental status, worsening hypoxemia. To the
intermediate care unit for high flow oxygen. Patient appeared to be uremic with BUN greater than 100 and creatinine of 9. We were consulted for hypoxemia.
Acute hypoxemic respiratory failure: Suspect mainly driven by volume overload from chronic kidney disease/on top of pneumonia
Currently on high flow oxygen
Bacterial pneumonia suspected. Left lower lobe based on x-ray
Chest x-ray: Cardiomegaly with left lower lobe abnormality.
No leukocytosis
Fever
Acute kidney injury on chronic kidney disease: BUN 1 around 9/creatinine 9.1
Anion gap metabolic acidosis
Fatigue/failure to thrive: Possibly from uremia.
Conditions present prior admission:
Chronic normocytic anemia related to chronic kidney disease
Chronic thrombocytopenia
Hypertension
Hyperlipidemia
Type 2 diabetes
Chronic kidney disease
Plan
Pulmonary status improved with less oxygen requirements with progressive hemodialysis/fluid removal
Change from high flow oxygen to nasal cannula and attempt to wean to room air
Incentive spirometry.
Acapella.
Duo nebs as needed
Aspiration precautions.
Chest x-ray 11/27/2023-pending
Fluid removal per nephrology
Nephrology follow-correspondence reviewed.
Hemodialysis started 11/24/23, 11/25/23, and will receive 11/26/23-status post -2 L removal
Cardiology evaluation ongoing
Echocardiogram 11/25/2023-EF 40%, severe left atrial dilation, no significant valvular abnormalities, rhythm atrial fibrillation
Atrial fibrillation, rate controlled.
Anticoagulation-on hold due to potential bleeding
Monitor hemoglobin
Transfuse as needed
PPI
Consider GI evaluation
Cultures reviewed
Continue with empiric antibiotics-ceftriaxone and doxycycline-finite course
Unable to produce sputum
Monitor blood sugar.
Insulin supplementation as needed.
DVT prophylaxis-now on Xarelto-now on hold
Nutrition
Bedside range of motion/his therapy
Reviewed with nursing
Data
Chest x-ray 11/24/2023-showed cardiomegaly. Left lower lobe abnormality. Similar to prior. Underwhelming for amount of infiltrate plan
CT chest performed this morning 11/24/2023: Showed cardiomegaly. Left lower lobe atelectasis and large infiltrate. Bilateral small pleural effusions. Wait for official report
Subjective Data
-
Date of Service:
Date of Service: November 27, 2023
Chief Complaint: Pulmonary Follow Up and Dyspnea Follow Up
Subjective:
Oxygenation improved, no shortness of breath,, heme positive stool, no chest pain or abdominal pain
Review of Systems
General: Other (Per HPI)
Objective Data
Data Reviewed
Vital Signs / I&O:
Vital Signs
Temp Pulse Resp BP Pulse Ox
98.0 F 84 16 146/104 97
11/27/23 07:20 11/27/23 08:27 11/27/23 07:59 11/27/23 08:27 11/27/23 07:59
Intake and Output
11/26/23 11/27/23 11/28/23
06:59 06:59 06:59
Intake Total 410 / 410
Output Total 300 / 300 580 / 580 150 / 150
Balance -300 / -300 -170 / -170 -150 / -150
SaO2: 97
Nasal Cannula flow liters per minute: 5
Physical Exam
General: Respiratory Distress (n) and Comfortable
HEENT: Normocephalic and Anicteric
Respiratory: Wheeze (n), Crackles ( basilar), Rhonchi ( expiratory), Non-Labored Respirations, Accessory Resp Muscle Use (n) and Stridor (n)
GI: Soft, Non Distended and Non Tender
Neurology: Awake, Alert and No Motor Deficits
Skin: Warm, Good Color, Cyanosis (n), Jaundice (n) and Rash (n)
Labs/Micro/Reports
Lab Data
11/27/23 05:22
11/27/23 05:22
Microbiology
11/23/23 02:07 Blood/Venous Blood Culture - Preliminary
No Growth in 4 days- Final report to follow
11/24/23 10:02 Nose MRSA Screen - Final
No Methicillin Resistant Staphylococcus aureus isolated.
--- NOTE | 2023-11-27 10:07 | W.PN.NEPH.PH ---
Today's Communication / Plan
-
HD tomorrow
Assessment/Plan
-
Assessment:
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
Uremia
Anemia
HTN
DLD
T2DM
Plan:
follow BMP
HD tomorrow
unsure if he will be able to come off HD-hopefully will be ablet o determine in 48 hrs.
otherwise, will need tunnelled HD CVC and OP arrangements for OP HD-DAMARI
can stop bicarb
-
-
Date of Service: November 27, 2023
CC / HPI / ROS
-
Chief Complaint:
DAMARI
History of Present Illness:
tolerated HD yesterday
BP stale
nonoliguric
Review of Systems:
no CP/SOB
Labs
-
Labs:
WBC 6.9 10^3/uL (4.8-10.8) 11/27/23 05:22
RBC 3.08 10^6/uL (4.70-6.10) L 11/27/23 05:22
Hgb 8.9 g/dL (13.0-18.0) L 11/27/23 05:22
Hct 26.6 % (39.0-52.0) L 11/27/23 05:22
Plt Count 137 10^3/uL (130-400) 11/27/23 05:22
Sodium 137 mmol/L (135-145) 11/27/23 05:22
Potassium 3.7 mmol/L (3.5-5.1) 11/27/23 05:22
Chloride 101 mmol/L (98-107) 11/27/23 05:22
Carbon Dioxide 27 mmol/L (22-30) 11/27/23 05:22
BUN 45 mg/dl (9-20) H 11/27/23 05:22
Creatinine 4.0 mg/dL (0.7-1.3) H 11/27/23 05:22
eGFR 14.78 11/27/23 05:22
Glucose 124 mg/dl (70-99) H 11/27/23 05:22
Calcium 8.2 mg/dl (8.4-10.2) L 11/27/23 05:22
Albumin 2.9 g/dl (3.5-5.0) L 11/25/23 09:06
Physical Exam
-
Vital Signs:
Vital Signs
Temp Pulse Resp BP Pulse Ox
98.0 F 84 16 146/104 97
11/27/23 07:20 11/27/23 08:27 11/27/23 07:59 11/27/23 08:27 11/27/23 10:05
Cardiovascular:: Regular rate and rhythm
Respiratory:: Bilateral: CTA
Lung Excursion:: Normal
Abdomen:: Nontender and Soft
Bowel Sounds:: Normal
Extremity Edema:: None: Bilateral:
--- NOTE | 2023-11-27 10:41 | W.PN.HOSP.TC ---
Today's Communication/Plan
-
HD in AM.
Follow-up chest x-ray for bilateral infiltrates
Continue antibiotics
Attempt to wean off oxygen.
Physical therapy
CT scan of the head
Stop Xarelto
Monitor hemoglobin
Assessment / Plan
Assessment / Plan
Impression:
Acute hypoxemic respiratory failure
� Likely secondary to volume overload with progressive renal disease, versus pneumonia.
Bilateral bacterial pneumonia suspected.
Acute kidney injury on chronic kidney disease requiring hemodialysis initiation over this admission
Increased anion gap metabolic acidosis
Atrial fibrillation with rapid ventricular response, new onset
Failure to thrive
Right upper extremity distal paresthesia
Conditions prior to admission:
CKD stage IV.
Anemia of chronic disease/CKD
Essential hypertension
Dyslipidemia
Type 2 diabetes
Plan
Acute hypoxic respiratory failure -likely multifactorial etiology including renal failure induced pulmonary edema, possible pneumonia, etc.
Remains with higher oxygen requirements
Repeat chest x-ray from 11/22 shows large dense left lower lobe airspace consolidation and moderate amount of airspace opacity in the inferior left upper lobe, worsened compared to the prior day. Mild right lower airspace opacity.
Attempt to wean off oxygen as tolerates
Sepsis -possibly due to pneumonia present on admission now resolved. CT scan of the chest 11/23: Consolidative parenchymal opacity involving most of the left lower lobe, compatible with consolidative pneumonia. There is also patchy groundglass
parenchymal opacity within the posterior aspect of the adjacent left upper lobe and the lingula, compatible with pneumonia but less consolidative.
Hemodynamically stable. No fevers at home but did have chills. Denies abdominal pain. Urinalysis without significant pyuria. COVID-19 negative, influenza negative. Blood cultures negative so far. Will change antibiotics to ceftriaxone and
doxycycline to cover community-acquired pneumonia. Follow-up imaging with initiation of hemodialysis.
Continue antibiotics ceftriaxone/doxycycline for another 24 hours through 11/26. Follow-up with chest x-ray on 11/26.
DAMARI on CKD 4 -suspect progression of renal failure and likely approaching ESRD. Nongap metabolic acidosis noted. Oliguric. Continue sodium bicarb.
He is uremic given significant anorexia and weight loss.
Plan is for hemodialysis initiation.
IR consulted for temporary dialysis catheter placement.
Escalera catheter inserted. Bladder scan was 237 cc prior to insertion.
Atrial fibrillation with rapid ventricular response
Hemodynamically stable.
Echocardiogram 11/24 with mild left ventricular dilation with severe left ventricular hypertrophy, mild global hypokinesis and mildly reduced left ventricular systolic function with LVEF of 40%. Severe left atrial dilation. No evidence of pulmonary
hypertension.
Transitioned off IV Cardizem drip to Coreg at increased dose
Cardiology consultation appreciated
CHADSVASC2 5 (CHF, hypertension, diabetes, age).
Initiated on Xarelto on 11/24.
Developed dark heme positive stools on 11/25.
Hemoglobin stable.
Xarelto placed on hold on 11/26
Normocytic anemia -follow hemoglobin
Dark heme positive stool while on Xarelto
Xarelto discontinued
Hemoglobin remained stable with no evidence of brisk blood loss
Patient reports no chronic gastrointestinal issues including negative history of PUD
Colonoscopy about 3 years ago with no abnormalities.
Monitor hemoglobin. If significant drop or concern for active/brisk bleeding consider GI consultation.
Thrombocytopenia -follow daily
Reports numbness and decreased strength at the right upper extremity since admission.
Overall neurologic exam with no focal findings other than crease sensation first and second finger on the right.
Suspect peripheral neuropathy, possibly medial nerve impingement
Given recent diagnosis of A-fib will check CT scan of the head
Essential HTN -stable.
DM2 with hyperglycemia -hemoglobin A1c 5.5. Continue preadmission regimen including Lantus 4 units. Continue serial Accu-Cheks and low-dose basal bolus protocol.
Hyperlipidemia -on Zocor.
Full code
Anticipated Discharge: 24 - 48 hours
Subjective/Interval History
-
Date of Service: November 27, 2023
Objective Data
-
Labs:
Laboratory Results
11/27/23
05:22
WBC 6.9
Hgb 8.9 L
Hct 26.6 L
Plt Count 137
Sodium 137
Potassium 3.7
Chloride 101
Carbon Dioxide 27
BUN 45 H
Creatinine 4.0 H
Glucose 124 H
Calcium 8.2 L
Vital Signs:
Vital Signs
Temp Pulse Resp BP Pulse Ox
98.0 F 76 28 140/105 97
11/27/23 07:20 11/27/23 10:00 11/27/23 10:00 11/27/23 09:18 11/27/23 10:05
I&O
11/26/23 11/27/23 11/28/23
06:59 06:59 06:59
Intake Total 410 / 410
Output Total 300 / 300 580 / 580 150 / 150
Balance -300 / -300 -170 / -170 -150 / -150
Physical Exam
-
General: Well Developed and No Apparent Distress
HEENT: Normocephalic, Atraumatic and Moist Mucous Membranes
Respiratory: Clear to Auscultation
Cardiac: Regular Rhythm and S1/S2; Negative Murmur, Rub or Gallop
GI: Soft, Nontender, Nondistended and Normal Bowel Sounds; Negative Organomegaly
Rectal: Deferred by Provider
Musculoskeletal: No Clubbing, No Cyanosis and No Edema
Skin: Negative Rash
Neuro: Awake, Alert, Oriented, AO x 3 and Nonfocal/Grossly Intact
--- NOTE | 2023-11-27 11:52 | PTCARENOTE ---
Pt to xray and back for ct scan 11/27
[2023-11-27 12:23] LABS: Glucose - Point of Care 170 mg/dl (70-99)
[2023-11-27] MEDS: NOVOLOG FLEXPEN-LOW RESISTANCE 1 UNITS SC (12:58)
[2023-11-27 18:09] LABS: Glucose - Point of Care 101 mg/dl (70-99)
[2023-11-27] MEDS: LANTUS 0.0400000000000000008 UNITS SC (18:51)
--- NOTE | 2023-11-27 20:57 | PTCARENOTE ---
Received pt from [facility]ves [facility]. Pt is AAOx3. NSR w/ PVCs on the monitor. On 4L NC O2 sat 94%, lungs diminished. BSCx1/U. Pt is laying comfortable in bed with call lu in reach.
[2023-11-27 21:36] LABS: Glucose - Point of Care 157 mg/dl (70-99)
[2023-11-28] VITALS (28 sets, daily range): BP systolic 132–184; BP diastolic 63–106; PULSE 108; O2SAT 96; BMI 26.7
[2023-11-28 07:35] LABS: Glucose - Point of Care 119 mg/dl (70-99)
[2023-11-28] MEDS: RETACRIT 10000 UNITS IV (08:10)
[2023-11-28] MEDS: DUONEB 3 ML INH (08:18)
[2023-11-28 08:39] LABS: % Basophils 0.3 % (0-2); % Eosinophils 2.5 % (0-6); % Immature Granulocytes 1.3 % (0-0.5); % Lymphocytes 11.3 % (20.5-51.1); % Monocytes 6.9 % (1.7-9.3); % Neutrophils 77.7 % (42.2-75.2); Absolute Eosinophils 0.2 10^3/uL (0-0.7); Absolute Immature Granulocytes 0.1 10^3/uL (0-0.05); Absolute Lymphocytes 0.9 10^3/uL (1.2-3.4); Absolute Monocytes 0.5 10^3/uL (0.1-0.6); Absolute Neutrophils 5.8 10^3/uL (1.4-6.5); Hematocrit 25.7 % (39.0-52.0); Hemoglobin 8.4 g/dL (13.0-18.0); Mean Corp Hgb Conc. 32.7 g/dL (33.0-37.0); Mean Corpuscular Hgb 28.9 pg (27.0-31.0); Mean Corpuscular Volume 88.3 fL (80.0-94.0); Mean Platelet Volume 11.4 fL (7.4-10.4); Nucleated Red Blood Cells % 0.3 % (-); Platelet Count 174 10^3/uL (130-400); Red Blood Cell Count 2.91 10^6/uL (4.70-6.10); Red Cell Dist. Width 12.6 % (11.5-14.5); White Blood Cell Count 7.5 10^3/uL (4.8-10.8)
[2023-11-28] MEDS: NOVOLOG FLEXPEN-LOW RESISTANCE SC ×2 (08:50→12:26)
--- NOTE | 2023-11-28 09:30 | W.PN.PUL.V3 ---
Today's Communication / Plan
-
Continue antibiotics
Wean oxygen
Hemodialysis
Occasional radiograph
Assessment
-
78-year-old male with multiple medical problems initially admitted with weakness/lethargy. Found to be hypoxemic with a left lower lobe infiltrate. On 11/23/2023 condition deteriorated with worsening mental status, worsening hypoxemia. To the
intermediate care unit for high flow oxygen. Patient appeared to be uremic with BUN greater than 100 and creatinine of 9. We were consulted for hypoxemia.
Acute hypoxemic respiratory failure: Suspect mainly driven by volume overload from chronic kidney disease/on top of pneumonia
Currently on high flow oxygen
Bacterial pneumonia suspected. Left lower lobe based on x-ray
Chest x-ray: Cardiomegaly with left lower lobe abnormality.
No leukocytosis
Fever
Acute kidney injury on chronic kidney disease: BUN 1 around 9/creatinine 9.1
Anion gap metabolic acidosis
Fatigue/failure to thrive: Possibly from uremia.
Conditions present prior admission:
Chronic normocytic anemia related to chronic kidney disease
Chronic thrombocytopenia
Hypertension
Hyperlipidemia
Type 2 diabetes
Chronic kidney disease
Plan
Pulmonary status improved with less oxygen requirements with progressive hemodialysis/fluid removal
Change from high flow oxygen to nasal cannula and attempt to wean to room air-currently on 4 L with adequate oxygenation
Incentive spirometry encouraged
Acapella encouraged
Duo nebs as needed
Aspiration precautions.
Chest x-ray 11/27/2023-large left lower lobe consolidation slightly improved
Fluid removal per nephrology
Nephrology follow-correspondence reviewed.
Hemodialysis started 11/24/23, 11/25/23, and will receive 11/26/23-status post -2 L removal-dialysis again on 11/28/2023
Cardiology evaluation ongoing
Echocardiogram 11/25/2023-EF 40%, severe left atrial dilation, no significant valvular abnormalities, rhythm atrial fibrillation
Atrial fibrillation, rate controlled.
Anticoagulation-on hold due to potential bleeding
Monitor hemoglobin
Transfuse as needed
PPI
Consider GI evaluation
Cultures reviewed
Continue with empiric antibiotics-ceftriaxone and doxycycline-finite course
Unable to produce sputum
Monitor blood sugar.
Insulin supplementation as needed.
DVT prophylaxis-now on Xarelto-now on hold
Nutrition
Bedside range of motion/his therapy
Reviewed with nursing
Data
Chest x-ray 11/24/2023-showed cardiomegaly. Left lower lobe abnormality. Similar to prior. Underwhelming for amount of infiltrate plan
CT chest performed this morning 11/24/2023: Showed cardiomegaly. Left lower lobe atelectasis and large infiltrate. Bilateral small pleural effusions. Wait for official report
Subjective Data
-
Date of Service:
Date of Service: November 28, 2023
Chief Complaint: Pulmonary Follow Up and Dyspnea Follow Up
Subjective:
Improved with dialysis, no complaints of shortness of breath, no chest pain, productive cough or abdominal pain
Review of Systems
General: Other (Per HPI)
Objective Data
Data Reviewed
Vital Signs / I&O:
Vital Signs
Temp Pulse Resp BP Pulse Ox
98.3 F 75 16 168/99 98
11/28/23 07:49 11/28/23 08:21 11/28/23 08:21 11/28/23 06:01 11/28/23 08:21
Intake and Output
11/27/23 11/28/23 11/29/23
06:59 06:59 06:59
Intake Total 410 / 410 410 / 410
Output Total 580 / 580 875 / 875
Balance -170 / -170 -465 / -465
SaO2: 98
Nasal Cannula flow liters per minute: 3
Physical Exam
General: Respiratory Distress (n) and Comfortable
HEENT: Normocephalic and Anicteric
Respiratory: Wheeze (n), Crackles ( basilar), Rhonchi ( expiratory), Non-Labored Respirations, Accessory Resp Muscle Use (n) and Stridor (n)
GI: Soft, Non Distended and Non Tender
Neurology: Awake, Alert and No Motor Deficits
Skin: Warm, Good Color, Cyanosis (n), Jaundice (n) and Rash (n)
Labs/Micro/Reports
Lab Data
11/28/23 08:21
Microbiology
11/23/23 02:07 Blood/Venous Blood Culture - Final
No Growth - Final Report
11/24/23 10:02 Nose MRSA Screen - Final
No Methicillin Resistant Staphylococcus aureus isolated.
[2023-11-28 09:38] LABS: Blood Urea Nitrogen 57 mg/dl (9-20); Calcium 8.5 mg/dl (8.4-10.2); Carbon Dioxide 26 mmol/L (22-30); Chloride 101 mmol/L (98-107); Estimated Creatinine Clearance 13 ml/min; Glucose 113 mg/dl (70-99); Potassium 3.6 mmol/L (3.5-5.1); Sodium 138 mmol/L (135-145); eGFR 11.58
--- NOTE | 2023-11-28 09:49 | W.PN.NEPH.HD ---
Assessment
-
Seen on HD. no complaints. VSS, access temp CVC ok
would like to see Cr trend, ideally over weekend to see if he is able to come off dialysis
unlikely there will be OP HD arrangements made in 48hrs for DAMARI-HD
Progress Note - Hemodialysis
-
Date of Service: November 28, 2023
Duration: 30 minutes and 3 hours
Potassium Bath: 3
Calcium Bath: 2.5
Opti-Dialyzer: 160
Ultrafiltration: Other (1kg)
Blood Flow: 400
Dialysate Flow: 600
Heparin: no
EPO: 76699 units
[2023-11-28] MEDS: HEPARIN 2000 UNITS INTRACATH (11:07)
[2023-11-28] MEDS: ROCEPHIN 2000 MG IV (11:41)
[2023-11-28] MEDS: MIRALAX 17 GRAMS PO (11:41)
[2023-11-28] MEDS: STERILE WATER FOR INJECTION 20 ML IV (11:41)
[2023-11-28] MEDS: COREG 6.25 MG PO ×2 (11:45→19:57)
[2023-11-28] MEDS: VIBRAMYCIN 100 MG PO ×2 (11:46→19:57)
[2023-11-28] MEDS: LIPITOR 20 MG PO (11:46)
--- NOTE | 2023-11-28 12:07 | W.PN.CD ---
Today's Communication / Plan
-
We will sign off
I asked him to see his [place] decision support analyst in the next several weeks
Impression / Plan
-
New AFib, paroxysmal
- Afib onset t 11/24/2023 at just about 2115 hrs and it converted to sinus w/o bradycardia about 1741 hours on 11/25/2023.
- No more AFib so far
- Received 2 doses Xarelto (more affordable than our preferred Eliquis) => then stool black and heme + => Xarelto off, He does not want to take it
- On Coreg \\
- [id number] at least [id number] score is at least 5 (cardiomyopathy, HTN, age2, DM)
Cardiomyopathy, LVEF 40%
- Limited data on med rx for patients on HD
- Will use HD for volume control
- Later can consider further GDMT
Pneumonia
DAMARI on CKD:
-received dialysis yesterday
-management per nephrology
Anemia, monitor
HTN
Subjective:
No CP or dyspnea. H/H stable.
Physical Exam
Vital Signs/Labs
Vital Signs
Temp Pulse Resp BP Pulse Ox
98.5 F 88 23 161/67 98
11/28/23 11:21 11/28/23 10:30 11/28/23 10:30 11/28/23 11:45 11/28/23 09:30
11/27/23 11/28/23 11/29/23
06:59 06:59 06:59
Actual Weight 85.3 kg 84.4 kg
11/28/23 08:21
11/28/23 08:21
Physical Exam
Constitutional: No acute distress
EENT: Anicteric
Cardiovascular: Rhythm & rate is regular and Pedal edema is absent
Respiratory: Respiratory effort normal and Lungs clear to auscul.
Data Reviewed
-
Date of Service: November 28, 2023
[2023-11-28 12:34] LABS: Glucose - Point of Care 96 mg/dl (70-99)
--- NOTE | 2023-11-28 13:31 | W.PN.HOSP.TC ---
Today's Communication/Plan
-
HD.
Monitoring urine output and creatinine.
Continue antibiotics through 11/30 to complete 7-day course.
Attempt to wean off oxygen
CT scan of the head given upper extremity paresthesia.
Physical therapy evaluation
Assessment / Plan
Assessment / Plan
Impression:
Acute hypoxemic respiratory failure
� Likely secondary to volume overload with progressive renal disease, versus pneumonia.
Bilateral bacterial pneumonia suspected.
Acute kidney injury on chronic kidney disease requiring hemodialysis initiation over this admission
Increased anion gap metabolic acidosis
Atrial fibrillation with rapid ventricular response, new onset
Failure to thrive
Right upper extremity distal paresthesia
Conditions prior to admission:
CKD stage IV.
Anemia of chronic disease/CKD
Essential hypertension
Dyslipidemia
Type 2 diabetes
Plan
Acute hypoxic respiratory failure -likely multifactorial etiology including renal failure induced pulmonary edema, possible pneumonia, etc.
Remains with higher oxygen requirements
Repeat chest x-ray 11/26 with persistent left lower lobe consolidation
Attempt to wean off oxygen as tolerates
Sepsis -possibly due to pneumonia present on admission now resolved. CT scan of the chest 11/23: Consolidative parenchymal opacity involving most of the left lower lobe, compatible with consolidative pneumonia. There is also patchy groundglass
parenchymal opacity within the posterior aspect of the adjacent left upper lobe and the lingula, compatible with pneumonia but less consolidative.
Hemodynamically stable. No fevers at home but did have chills. Denies abdominal pain. Urinalysis without significant pyuria. COVID-19 negative, influenza negative. Blood cultures negative so far. Will change antibiotics to ceftriaxone and
doxycycline to cover community-acquired pneumonia. Follow-up imaging with initiation of hemodialysis.
Continue antibiotics ceftriaxone/doxycycline for another 24 hours through 11/30 to complete 7-day course of therapy.
DAMARI on CKD 4 -suspect progression of renal failure and likely approaching ESRD. Nongap metabolic acidosis noted. Oliguric. Continue sodium bicarb.
He is uremic given significant anorexia and weight loss.
Plan is for hemodialysis initiation.
IR consulted for temporary dialysis catheter placement.
Escalera catheter inserted. Bladder scan was 237 cc prior to insertion.
Plan is for inpatient hemodialysis for the next few days monitoring urine output and recovery of renal function with hope is to come off dialysis prior to discharge.
Atrial fibrillation with rapid ventricular response
Hemodynamically stable.
Echocardiogram 11/24 with mild left ventricular dilation with severe left ventricular hypertrophy, mild global hypokinesis and mildly reduced left ventricular systolic function with LVEF of 40%. Severe left atrial dilation. No evidence of pulmonary
hypertension.
Transitioned off IV Cardizem drip to Coreg at increased dose
Cardiology consultation appreciated
CHADSVASC2 5 (CHF, hypertension, diabetes, age).
Initiated on Xarelto on 11/24.
Developed dark heme positive stools on 11/25.
Hemoglobin stable.
Xarelto placed on hold on 11/26
Normocytic anemia -follow hemoglobin
Dark heme positive stool while on Xarelto
Xarelto discontinued
Hemoglobin remained stable with no evidence of brisk blood loss
Patient reports no chronic gastrointestinal issues including negative history of PUD
Colonoscopy about 3 years ago with no abnormalities.
Monitor hemoglobin. If significant drop or concern for active/brisk bleeding consider GI consultation.
Thrombocytopenia -follow daily
Reports numbness and decreased strength at the right upper extremity since admission.
Overall neurologic exam with no focal findings other than crease sensation first and second finger on the right.
Suspect peripheral neuropathy, possibly medial nerve impingement
Given recent diagnosis of A-fib will check CT scan of the head
Essential HTN -stable.
DM2 with hyperglycemia -hemoglobin A1c 5.5. Continue preadmission regimen including Lantus 4 units. Continue serial Accu-Cheks and low-dose basal bolus protocol.
Hyperlipidemia -on Zocor.
Full code
Anticipated Discharge: > 48 hours
Subjective/Interval History
-
Date of Service: November 28, 2023
Objective Data
-
Labs:
Laboratory Results
11/28/23
08:21
WBC 7.5
Hgb 8.4 L
Hct 25.7 L
Plt Count 174 D
Sodium 138
Potassium 3.6
Chloride 101
Carbon Dioxide 26
BUN 57 H
Creatinine 4.9 H*
Glucose 113 H
Calcium 8.5
Vital Signs:
Vital Signs
Temp Pulse Resp BP Pulse Ox
98.5 F 88 23 161/67 98
11/28/23 11:21 11/28/23 10:30 11/28/23 10:30 11/28/23 11:45 11/28/23 09:30
I&O
11/27/23 11/28/23 11/29/23
06:59 06:59 06:59
Intake Total 410 / 410 410 / 410
Output Total 580 / 580 875 / 875
Balance -170 / -170 -465 / -465
Physical Exam
-
General: Well Developed and No Apparent Distress
HEENT: Normocephalic, Atraumatic and Moist Mucous Membranes
Respiratory: Clear to Auscultation
Cardiac: Regular Rhythm and S1/S2; Negative Murmur, Rub or Gallop
GI: Soft, Nontender, Nondistended and Normal Bowel Sounds; Negative Organomegaly
Rectal: Deferred by Provider
Musculoskeletal: No Clubbing, No Cyanosis and No Edema
Skin: Negative Rash
Neuro: Awake, Alert, Oriented, AO x 3 and Nonfocal/Grossly Intact
--- NOTE | 2023-11-28 15:49 | CM ---
Addendum entered by Mary Garnica RN 11/28/23 17:01:
[facility].
Plan follow up with [facility] for HD clearance & chair assignment.
Plan home with Outpatient HD and [facility].
Original Note:
Patient with Dx Acute hypoxemic respiratory failure, new HD. CT head today. Receiving IV Abx. PT recommends HH. OT recommends skilled rehab.
Message with Dr Nichole; Could probably make the referral. He�s got a 25% he might not need outpatient HD.
Met with patient who states he wants to go home rather than go to rehab. Patient expressed concern that 3 of his right hand fingers were numb and he could not drive a car to get to dialysis. He agrees to a referral to [facility]
MWF morning schedule preferred. Patient agrees to a referral to for PT/OT and chooses [facility].
Spoke with patient's Nadeen; is in [place] with their son who is in [facility] and has been there for a year. She will plan on coming down here to be with the patient for a while when he is discharged, to help him get to HD as
needed, until Transport is setup. Provided phone # for transport- will call and set up. 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
Referral to [facility].
Plan referral to [facility].
Plan home with Outpatient HD and [facility].
--- NOTE | 2023-11-28 15:52 | PTCARENOTE ---
Pt to cat scan for ct of head.
[2023-11-28 17:21] LABS: Glucose - Point of Care 157 mg/dl (70-99)
[2023-11-28] MEDS: NOVOLOG FLEXPEN-LOW RESISTANCE 1 UNITS SC (18:08)
[2023-11-28] MEDS: LANTUS 0.0400000000000000008 UNITS SC (18:08)
--- NOTE | 2023-11-28 20:53 | PTCARENOTE ---
Received pt from [facility]. Pt is AAOx3. NSR w/PVCs. On 2L NC O2 sat 95%, lungs diminished. VSS. Pt is laying comfortable in bed with call lu in reach.
[2023-11-28 21:19] LABS: Glucose - Point of Care 182 mg/dl (70-99)
[2023-11-29] VITALS (10 sets, daily range): BP systolic 132–171; BP diastolic 75–104; BMI 26.2
[2023-11-29 05:41] LABS: Blood Urea Nitrogen 41 mg/dl (9-20); Calcium 8.9 mg/dl (8.4-10.2); Carbon Dioxide 23 mmol/L (22-30); Chloride 100 mmol/L (98-107); Estimated Creatinine Clearance 17 ml/min; Glucose 127 mg/dl (70-99); Potassium 3.8 mmol/L (3.5-5.1); Sodium 137 mmol/L (135-145); eGFR 15.72
[2023-11-29 05:43] LABS: Hematocrit 28.6 % (39.0-52.0); Hemoglobin 9.4 g/dL (13.0-18.0); Mean Corp Hgb Conc. 32.9 g/dL (33.0-37.0); Mean Corpuscular Hgb 28.9 pg (27.0-31.0); Mean Platelet Volume 11.1 fL (7.4-10.4); Platelet Count 201 10^3/uL (130-400); Red Blood Cell Count 3.25 10^6/uL (4.70-6.10); Red Cell Dist. Width 12.3 % (11.5-14.5); White Blood Cell Count 9.1 10^3/uL (4.8-10.8)
[2023-11-29 08:24] LABS: Glucose - Point of Care 122 mg/dl (70-99)
[2023-11-29] MEDS: NOVOLOG FLEXPEN-LOW RESISTANCE SC ×2 (08:50→16:30)
[2023-11-29] MEDS: LIPITOR 20 MG PO (08:52)
[2023-11-29] MEDS: COREG 6.25 MG PO ×2 (08:52→20:11)
[2023-11-29] MEDS: ROCEPHIN 2000 MG IV (08:52)
[2023-11-29] MEDS: VIBRAMYCIN 100 MG PO ×2 (08:52→20:11)
[2023-11-29] MEDS: MIRALAX 17 GRAMS PO (08:52)
[2023-11-29] MEDS: STERILE WATER FOR INJECTION 20 ML IV (08:53)
[2023-11-29] MEDS: ROCALTROL 0.25 MCG PO (08:54)
--- NOTE | 2023-11-29 09:23 | W.PN.PUL.V3 ---
Today's Communication / Plan
-
Finite course of antibiotics
Dialysis per nephrology
Oxygen weaned to room air-pulmonary will sign off-please call with questions
Assessment
-
78-year-old male with multiple medical problems initially admitted with weakness/lethargy. Found to be hypoxemic with a left lower lobe infiltrate. On 11/23/2023 condition deteriorated with worsening mental status, worsening hypoxemia. To the
intermediate care unit for high flow oxygen. Patient appeared to be uremic with BUN greater than 100 and creatinine of 9. We were consulted for hypoxemia.
Acute hypoxemic respiratory failure: Suspect mainly driven by volume overload from chronic kidney disease/on top of pneumonia
Currently on high flow oxygen
Bacterial pneumonia suspected. Left lower lobe based on x-ray
Chest x-ray: Cardiomegaly with left lower lobe abnormality.
No leukocytosis
Fever
Acute kidney injury on chronic kidney disease: BUN 1 around 9/creatinine 9.1
Anion gap metabolic acidosis
Fatigue/failure to thrive: Possibly from uremia.
Conditions present prior admission:
Chronic normocytic anemia related to chronic kidney disease
Chronic thrombocytopenia
Hypertension
Hyperlipidemia
Type 2 diabetes
Chronic kidney disease
Plan
Respiratory status has improved with progressive hemodialysis/fluid removal
The patient has been weaned from high flow oxygen to room air
Incentive spirometry encouraged
Acapella encouraged
Duo nebs as needed
Aspiration precautions.
Chest x-ray 11/27/2023-large left lower lobe consolidation slightly improved
Follow radiographically
Fluid removal per nephrology
Nephrology follow-correspondence reviewed.
Hemodialysis started 11/24/23, 11/25/23, and will receive 11/26/23-status post -2 L removal-dialysis again on 11/28/2023
Cardiology evaluation ongoing
Echocardiogram 11/25/2023-EF 40%, severe left atrial dilation, no significant valvular abnormalities, rhythm atrial fibrillation
Atrial fibrillation, rate controlled.
Anticoagulation-on hold due to potential bleeding
Monitor hemoglobin
Transfuse as needed
PPI
Consider GI evaluation
Cultures reviewed
Continue with empiric antibiotics-ceftriaxone and doxycycline-finite course
Unable to produce sputum
Monitor blood sugar.
Insulin supplementation as needed.
DVT prophylaxis-now on Xarelto-now on hold
Nutrition
Bedside range of motion/his therapy
Pulmonary status improved significantly-finish finite course of antibiotics, follow chest [id number] will sign off-please call with questions
Reviewed with nursing
Data
Chest x-ray 11/24/2023-showed cardiomegaly. Left lower lobe abnormality. Similar to prior. Underwhelming for amount of infiltrate plan
CT chest performed this morning 11/24/2023: Showed cardiomegaly. Left lower lobe atelectasis and large infiltrate. Bilateral small pleural effusions. Wait for official report
Subjective Data
-
Date of Service:
Date of Service: November 29, 2023
Chief Complaint: Pulmonary Follow Up and Dyspnea Follow Up
Subjective:
Feels much improved after multiple dialysis sessions, less short of breath, oxygen weaned to room air, no chest pain, productive cough or abdominal pain
Review of Systems
General: Other (Per HPI)
Objective Data
Data Reviewed
Vital Signs / I&O:
Vital Signs
Temp Pulse Resp BP Pulse Ox
98.8 F 81 27 147/87 95
11/29/23 02:58 11/29/23 08:52 11/29/23 04:49 11/29/23 08:52 11/29/23 05:00
Intake and Output
11/28/23 11/29/23 11/30/23
06:59 06:59 06:59
Intake Total 410 / 410 410 / 410
Output Total 875 / 875 200 / 200
Balance -465 / -465 210 / 210
SaO2: 95
Nasal Cannula flow liters per minute: 3
Physical Exam
General: Respiratory Distress (n) and Comfortable
HEENT: Normocephalic and Anicteric
Respiratory: Wheeze (n), Crackles (Resolved), Rhonchi ( expiratory), Non-Labored Respirations, Accessory Resp Muscle Use (n) and Stridor (n)
GI: Soft, Non Distended and Non Tender
Neurology: Awake, Alert and No Motor Deficits
Skin: Warm, Good Color, Cyanosis (n), Jaundice (n) and Rash (n)
Labs/Micro/Reports
Lab Data
11/29/23 04:58
11/29/23 04:58
Microbiology
11/23/23 02:07 Blood/Venous Blood Culture - Final
No Growth - Final Report
[2023-11-29 11:46] LABS: Glucose - Point of Care 150 mg/dl (70-99)
--- NOTE | 2023-11-29 12:23 | W.PN.NEPH.PH ---
Today's Communication / Plan
-
HD tomorrow
Assessment/Plan
-
Assessment:
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
Uremia
Anemia
HTN
DLD
T2DM
Plan:
follow BMP and UOP
HD tomorrow
unsure if he will be able to come off HD-hopefully will be ablet o determine through weekend
otherwise, will need tunnelled HD CVC and OP arrangements for OP HD-DAMARI with ATN on CKD [address] head but [place] still off AC -GI consulted and cards follows
d/w primary
-
-
Date of Service: November 29, 2023
CC / HPI / ROS
-
Chief Complaint:
DAMARI
History of Present Illness:
tolerated HD yesterday
BP stale
nonoliguric subjectively
wt decreasing on RA
hb stable 9.4
Review of Systems:
no CP/SOB
[place]+
right hand finger tingling mild -improved
Labs
-
Labs:
WBC 9.1 10^3/uL (4.8-10.8) 11/29/23 04:58
RBC 3.25 10^6/uL (4.70-6.10) L 11/29/23 04:58
Hgb 9.4 g/dL (13.0-18.0) L 11/29/23 04:58
Hct 28.6 % (39.0-52.0) L 11/29/23 04:58
Plt Count 201 10^3/uL (130-400) 11/29/23 04:58
Sodium 137 mmol/L (135-145) 11/29/23 04:58
Potassium 3.8 mmol/L (3.5-5.1) 11/29/23 04:58
Chloride 100 mmol/L (98-107) 11/29/23 04:58
Carbon Dioxide 23 mmol/L (22-30) 11/29/23 04:58
BUN 41 mg/dl (9-20) H 11/29/23 04:58
Creatinine 3.8 mg/dL (0.7-1.3) H 11/29/23 04:58
eGFR 15.72 11/29/23 04:58
Glucose 127 mg/dl (70-99) H 11/29/23 04:58
Calcium 8.9 mg/dl (8.4-10.2) 11/29/23 04:58
Albumin 2.9 g/dl (3.5-5.0) L 11/25/23 09:06
Physical Exam
-
Vital Signs:
Vital Signs
Temp Pulse Resp BP Pulse Ox
98.7 F 81 27 147/87 95
11/29/23 07:26 11/29/23 08:52 11/29/23 04:49 11/29/23 08:52 11/29/23 09:23
Cardiovascular:: Regular rate and rhythm
Respiratory:: Bilateral: CTA (decreased)
Lung Excursion:: Normal
Abdomen:: Nontender and Soft
Extremity Edema:: None: Bilateral: (trace)
Escalera Catheter: No
[2023-11-29] MEDS: NOVOLOG FLEXPEN-LOW RESISTANCE 1 UNITS SC (13:21)
--- NOTE | 2023-11-29 13:25 | CON.GI ---
Addendum entered and electronically signed by Nadege Null MD 11/29/23 21:51:
I saw and examined the patient.
The METAL TREATER or PA's note was reviewed and I agree with the note.
Comment: 78-year-old male with history of hypertension, high cholesterol, diabetes presenting for weakness, dizziness, hypoxia concerning for pneumonia versus volume overload, acute on chronic renal insufficiency, also A-fib with rapid ventricular
response on Xarelto, last dose 11/25, recent nonhemorrhagic CVA, with reported black stool couple of times during this hospital visit and GI consult was called in. Patient denies any complaints at this time. No history of GI bleeding in the past.
Reviewing labs, hemoglobin on admission 9.1 and today it is 9.4, no blood transfusions during this hospital visit. Normal iron studies. Did not get any IV iron.
Today brown stool noted. Also noted is elevated transaminases.
-Anemia with reported black stool but brown stool noted today
Stable hemoglobin , without any need for blood transfusion
No evidence of overt GI bleeding, given recent CVA, possible pneumonia no velasquez to do, upper endoscopy at this time.
Started Protonix 40 mg IV twice daily.
Monitor H&H and transfuse if needed.
If anticoagulation needs to be started, okay to start anticoagulation and we can watch hemoglobin and also for any evidence of GI bleeding closely.
Will do urgent endoscopy if need be.
Patient at this time refusing anticoagulation.
-Elevated transaminases,hepatitis serologies negative
Will check abdominal ultrasound
Will follow for now
Original Note:
Consultation
-
Date/Time Consultation Requested: 11/29/23 1215
Date/Time Consultation Performed: 11/29/23 1330
Requesting Provider: Nikita Campbell MD
Performing Provider: LANDON Garcia, Nadege Null MD
Reason for Consultation: melena
Medical History
Chief Complaint / HPI
Chief Complaint: black stools
History of Present Illness:
Pt is a 78yo with hx CKD stage 4, HTN, hyperlipidemia, NIDDM with admission 11/21 with dizziness, weakness and decrease appetite on admission noted with creat 6.5 with bun 81 and noted with hypoxemia with concern for PNA vs volume overload with acute
on chronic renal disease. He was treated with antibiotics and started HD He was noted with Afib with RVR with Xarelto 11/24 and 11/25 and pt refused 11/26. He was then noted 11/27 with new non hemorrhagic infarct involving basal ganglia. He has been
seen by neurology and recommended ASA and hold anticoagulation with melena and anemia.
At this time pt reports recent black stools record 11/26 and 11/27 but now with brown stools today. He denies dysphagia, GERD, nausea, vomiting, abdominal pain, diarrhea, or constipation. Hx colonoscopy at [place] recalls as stable no EGD. No NSAID
use other than ASA.
Past Medical History
Past Medical History: HTN, Hypercholesterolemia, NIDDM and Renal Failure (CKD stage 4)
Past Surgical History: Appendectomy and Other (eye surgery, hernia surgery )
Social History
Tobacco: Non-Smoker
Alcohol: None
Drug: None
Personal:
Living: With Family
Employment: Retired
Family History
Family History: Other (denies family hx colon CA or polyps)
Allergies / Home Medications
Allergy/AdvReac Type Severity Reaction Status Date / Time
No Known Allergies Allergy Verified 11/22/23 16:09
�Medication �Instructions �Recorded
aspirin 81 mg tablet,delayed 81 mg PO DAILY Blood Clot 11/22/23
release Prevention/Tx
calcitriol 0.25 mcg capsule 0.25 mcg PO MOWEFR Supplement 11/22/23
carvedilol 25 mg tablet (Coreg) 25 mg PO BID Blood Pressure 11/22/23
insulin glargine 100 unit/mL (3 4 unit SC QPM Diabetes 11/22/23
mL) subcutaneous pen (Lantus
Solostar U-100 Insulin)
latanoprost 0.005 % eye drops 1 drp BOTH EYES HS Eye Condition 11/22/23
nifedipine 90 mg tablet,extended 90 mg PO DAILY Blood Pressure 11/22/23
release 24 hr
simvastatin 40 mg tablet (Zocor) 40 mg PO DAILY High Cholesterol 11/22/23
sodium bicarbonate 650 mg tablet 1,300 mg PO BID Electrolyte 11/22/23
Repletion
Review of Systems
-
History Source: Patient
Constitutional: Reports Weight Loss (few lbs with decreased appetite)
EENT: Reports No Symptoms
Respiratory: Reports No Symptoms
Cardiac: Reports No Symptoms
Abdomen/GI: Reports Black Stools
: Reports No Symptoms
Musculoskeletal: Reports Joint Pain and Other (numbness )
Skin: Reports No Symptoms
Neurological: Reports Dizzy and Weakness
Endocrine: Reports No Symptoms
Hematologic/Lymphatic: Reports Bleeding
Vital Signs
Temp Pulse Resp BP Pulse Ox
98.2 F 85 16 142/87 94
11/29/23 11:30 11/29/23 12:45 11/29/23 12:00 11/29/23 12:50 11/29/23 13:04
Physical Exam
Exam
General: Other (pleasent elderly male no acute distress )
HEENT: Normocephalic and Anicteric
Respiratory: Clear
Cardiac: Regular Rhythm
GI: Soft, Non Tender and Non Distended
Musculoskeletal: No Clubbing and No Cyanosis
Skin: Warm and Dry
Neuro: Awake, Alert and AO x 3
Psych: Calm
Results
WBC 9.1 10^3/uL (4.8-10.8) 11/29/23 04:58
Hgb 9.4 g/dL (13.0-18.0) L 11/29/23 04:58
Hct 28.6 % (39.0-52.0) L 11/29/23 04:58
MCV 88.0 fL (80.0-94.0) 11/29/23 04:58
Plt Count 201 10^3/uL (130-400) 11/29/23 04:58
Absolute Neuts (auto) 5.8 10^3/uL (1.4-6.5) 11/28/23 08:21
Sodium 137 mmol/L (135-145) 11/29/23 04:58
Potassium 3.8 mmol/L (3.5-5.1) 11/29/23 04:58
Chloride 100 mmol/L (98-107) 11/29/23 04:58
Carbon Dioxide 23 mmol/L (22-30) 11/29/23 04:58
BUN 41 mg/dl (9-20) H 11/29/23 04:58
Creatinine 3.8 mg/dL (0.7-1.3) H 11/29/23 04:58
Calcium 8.9 mg/dl (8.4-10.2) 11/29/23 04:58
Total Bilirubin 0.6 mg/dl (0.2-1.3) 11/25/23 09:06
AST 91 U/L (17-59) H 11/25/23 09:06
ALT 74 U/L (0-50) H 11/25/23 09:06
Alkaline Phosphatase 63 U/L (38-126) 11/25/23 09:06
Hep Bs Antibody Positive 11/24/23 14:33
Diagnostic Image Results:
Prior GI Procedures:
EGD: none
Colonoscopy: recall as normal at [place]
Assessment / Plan
-
Pt is a 78yo with hx CKD stage 4, HTN, hyperlipidemia, NIDDM with admission 11/21 with dizziness, weakness and decrease appetite on admission noted with creat 6.5 with bun 81 and noted with hypoxemia with concern for PNA vs volume overload with acute
on chronic renal disease. He was treated with antibiotics and started HD He was noted with Afib with RVR with Xarelto 11/24 and 11/25 and pt refused 11/26. He was then noted 11/27 with new non hemorrhagic infarct involving basal ganglia. He has been
seen by neurology and recommended ASA and hold anticoagulation with melena and anemia. Hx colonoscopy at [place] recalls as stable no EGD. No NSAID use other than ASA. Also noted increased LFT's 6/3 bili 0.6, AST 91, ALT 74, alk phos 63.
-recent melena after Xarelto use
-anemia - no baseline noted
-acute on chronic CKD now on HD
-PNA
-new new hemorrhagic basal ganglion infarct
-afib with RVR
-increased LFT's
other med problems:
-NIDDM
-HTN
-hyperlipidemia
PLAN:
etiology of melena and anemia related to PUD, ectasia, mass vs other
stools now brown
likely bleeding worsened with Xarelto use
will review with dr. Null for GI testing as concern with multiple issues--PNA, worsening CKD, new afib, CVA
per cards pt declining further Xarelto and recommended [place] cardiology follow up to discuss
for now trend hbg -- no transfusion required
add iron studies to see if any benefit from venofer
repeat LFT's in AM to check for improvement unclear if chronic issue consider US/hepatitis if remains elevated
-
-
Thank you for consultation and allowing me to participate in the patient's care. Please call the donor relations coordinator GI physician during the after hours with any questions or concerns.
--- NOTE | 2023-11-29 13:28 | PTOTSP ---
ELECTRICAL MAINTENANCE TECHNICIAN Evaluations
Oral/pharyngeal swallowing suspected to be WFL and no signs of aspiration observed. Patient with ill fitting partials which he politely declined to remove. Patient denied prior dysphagia/pneumonias. If concerned for silent aspiration consider
video swallow study.
Cognitive screen via Blind MOCA 8.1 score 04/14. Normal is 19 or greater. Further testing of functional cognitive linguistic tasks warranted. Please see patient care note for patient details (background, baseline education, function).
Recommend:
1. Regular, Thin Liquids
2. General aspiration precautions
3. Medications as best tolerated
4. Further cognitive linguistic assessment.
--- NOTE | 2023-11-29 13:48 | CON.NEURO4 ---
Consultation - Neurology 4
-
CONSULTING PHYSICIAN: Beena Lenz
REFERRING PHYSICIAN: Dr Norris
DICTATED BY: Beena Lenz
DATE/TIME OF REQUEST: 11/29/23
DATE/TIME OF CONSULTATION: 11/29/23
Reason for Consultation: Suspected new ischemic stroke, right arm and hand numbness and weakness
History of Present Illness:
Patient is a 78-year-old male with a past ministry of CKD hypertension hyperlipidemia and diabetes who was admitted to the hospital on 11/21 initially with decreased p.o. intake, nausea and recent weight loss along with tremors. He developed
hypoxemic respiratory failure felt from either pneumonia or volume overload from DAMARI on CKD. He was treated with antibiotics and required starting on hemodialysis. Patient also developed atrial fibrillation with rapid ventricular response and was
initiated on rivaroxaban on 11/24, however he developed black stools and so Xarelto was stopped. Yesterday he mentioned to his physicians that he had right forearm and hand paresthesia along with decreased strength in the right hand. CT head
noncontrast showed a new acute appearing left basal ganglia infarction.
Patient reports that he is noting numbness and paresthesia on the right forearm as well as right hand decreased amount of strength he denies any history of stroke or TIA previously. Reports baseline left eye ptosis. No headache at this time, he is
not noticing any paresthesia on right leg or weakness on the right leg. Denies speech difficulty or dysarthria or dysphagia.
Past Medical History: CKD, hypertension, hyperlipidemia, diabetes mellitus on insulin
Surgical History: Appendectomy, hernia repair
Family History: Non-contributory
Social History: He is retired, lives at home, no tobacco use or alcohol
Allergies: No known drug allergies
Review of Symptoms:
Patient denies any fever, headache, chest pain, shortness of breath, GI or symptoms.
Physical Exam:
Middle elderly age man, no acute distress and pleasant, right chest port dialysis catheter seen, neck supple no masses oropharynx is clear, eyes are clear, heart exam appreciated breathing is unlabored, abdomen is soft nontender no lower extremity
edema seen no rash
Neurologic Examination:
The patient is awake, alert and oriented x 3. He is able to follow commands and answer questions appropriately. There is no aphasia or dysarthria. On cranial nerve assessment, pupils are 3 mm bilateral, round and reactive to light and
accommodation. Visual castellano are full. Extraocular movements are intact. Left eye ptosis seen. Facial sensations are intact and bilaterally symmetrical, there is no facial asymmetry. Hearing is intact bilaterally to normal conversation volume.
Tongue palate and uvula are midline. Sternocleidomastoid strengths are full bilaterally. No pronator drift, power 4/5 in arm flexion, mildly decreased fine finger movements on the right hand. Hip flexion 4/5 bilaterally. There is no drift or
involuntary movement noted. Deep tendon reflexes are 2+ bilateral upper and lower extremities and Babinski is absent bilaterally. Sensations of pain, touch, temperature and vibration are intact and bilaterally symmetrical. There was no extinction
noted on double simultaneous stimulation. Coordination is intact by finger to nose bilaterally.
Neuro Imaging: CT head late acute left anterior basal ganglia ischemic infarction, no masses, no hemorrhage
Impressions
CONSULTING PHYSICIAN: Beena Lenz
REFERRING PHYSICIAN: Dr Norris
DICTATED BY: Beena Lenz
DATE/TIME OF REQUEST: 11/29/23
DATE/TIME OF CONSULTATION: 11/29/23
Reason for Consultation: Suspected new ischemic stroke, right arm and hand numbness and weakness
History of Present Illness:
Patient is a 78-year-old male with a past ministry of CKD hypertension hyperlipidemia and diabetes who was admitted to the hospital on 11/21 initially with decreased p.o. intake, nausea and recent weight loss along with tremors. He developed
hypoxemic respiratory failure felt from either pneumonia or volume overload from DAMARI on CKD. He was treated with antibiotics and required starting on hemodialysis. Patient also developed atrial fibrillation with rapid ventricular response and was
initiated on rivaroxaban on 11/24, however he developed black stools and so Xarelto was stopped. Yesterday he mentioned to his physicians that he had right forearm and hand paresthesia along with decreased strength in the right hand. CT head
noncontrast showed a new acute appearing left basal ganglia infarction.
Patient reports that he is noting numbness and paresthesia on the right forearm as well as right hand decreased amount of strength he denies any history of stroke or TIA previously. Reports baseline left eye ptosis. No headache at this time, he is
not noticing any paresthesia on right leg or weakness on the right leg. Denies speech difficulty or dysarthria or dysphagia.
Past Medical History: CKD, hypertension, hyperlipidemia, diabetes mellitus on insulin
Surgical History: Appendectomy, hernia repair
Family History: Non-contributory
Social History: He is retired, lives at home, no tobacco use or alcohol
Allergies: No known drug allergies
Review of Symptoms:
Patient denies any fever, headache, chest pain, shortness of breath, GI or symptoms.
Physical Exam:
Middle elderly age man, no acute distress and pleasant, right chest port dialysis catheter seen, neck supple no masses oropharynx is clear, eyes are clear, heart exam appreciated breathing is unlabored, abdomen is soft nontender no lower extremity
edema seen no rash
Neurologic Examination:
The patient is awake, alert and oriented x 3. He is able to follow commands and answer questions appropriately. There is no aphasia or dysarthria. On cranial nerve assessment, pupils are 3 mm bilateral, round and reactive to light and
accommodation. Visual castellano are full. Extraocular movements are intact. Left eye ptosis seen. Facial sensations are intact and bilaterally symmetrical, there is no facial asymmetry. Hearing is intact bilaterally to normal conversation volume.
Tongue palate and uvula are midline. Sternocleidomastoid strengths are full bilaterally. No pronator drift, power 4/5 in arm flexion, mildly decreased fine finger movements on the right hand. Hip flexion 4/5 bilaterally. There is no drift or
involuntary movement noted. Deep tendon reflexes are 2+ bilateral upper and lower extremities and Babinski is absent bilaterally. Sensations of pain, touch, temperature and vibration are intact and bilaterally symmetrical. There was no extinction
noted on double simultaneous stimulation. Coordination is intact by finger to nose bilaterally.
Neuro Imaging: CT head late acute left anterior basal ganglia ischemic infarction, no masses, no hemorrhage
Impressions
1. Presumed small acute ischemic stroke in the left basal ganglia producing his right arm weakness and paresthesia. The stroke is not classically embolic appearing but fair possibility it is due to atrial fibrillation, other possible causes of
stroke would be atheroembolic aneurysm from intracranial stenosis or carotid artery versus small vessel disease from existing vascular risk factors.
2. Newly started on HD
3. Previous hypoxic respiratory failure
4. Atrial fibrillation with RVR. TTE reviewed. Severely dilated left atrium Mildly decreased systolic function, LVH seen. No thrombus seen.
5. Developed melena after starting Rivaroxaban
6. Hypertension
7. Diabetes on insulin
8. Hyperlipidemia
Recommendations:
1. Resume aspirin if felt stable from bleeding perspective, would need to hold off anticoagulation for the time being and reassess based on hemoglobin levels and if further clinical signs of melena or GI bleed
2. Goal normotension
3. Neurologic checks NIH stroke scales
4. Check carotid ultrasound
5. As stroke is clearly visualized on CT head and aligns with his right arm motor and sensory symptoms I do not see a great amount of utility that would be gained from checking MRI/MRA studies. Not going to recommend at this point.
6. Continue Atorvastatin 20 mg daily
7. TTE has been obtained
8. PT/OT speech therapy evaluations
Will follow
Discussed patient care with: Patient, Dr Norris
NIH Stroke Score
Subsequent NIH Scale
Date of Subsequent NIH Scale: 11/29/23
Time of Subsequent NIH Scale: 14:01
NIH Stroke Score
Level of Consciousness: 0 - Alert
LOC Questions: 0-Answers both correctly
LOC Commands: 0-Performs both correctly
Best Horizontal Gaze: 0-Normal
Visual Castellano: 0=Normal, no visual loss
Facial Palsy: 0=Normal, symmetrical
Motor - Right Arm: 0=No drift 10 seconds
Motor - Left Arm: 0=No drift 10 seconds
Motor - Right Le-Drift < 5 seconds
Motor - Left Le-Drift < 5 seconds
Limb Ataxia: 0-Absent
Sensation: 1-Mild loss
Best Language: 0-No aphasia
Home Medications
-
Home Medications
aspirin 81 mg tablet,delayed release 81 mg PO DAILY Blood Clot Prevention/Tx 11/22/23
calcitriol 0.25 mcg capsule 0.25 mcg PO MOWEFR Supplement 11/22/23
carvedilol 25 mg tablet (Coreg) 25 mg PO BID Blood Pressure 11/22/23
insulin glargine 100 unit/mL (3 mL) subcutaneous pen (Lantus Solostar U-100 Insulin) 4 unit SC QPM Diabetes 11/22/23
latanoprost 0.005 % eye drops 1 drp BOTH EYES HS Eye Condition 11/22/23
nifedipine 90 mg tablet,extended release 24 hr 90 mg PO DAILY Blood Pressure 11/22/23
simvastatin 40 mg tablet (Zocor) 40 mg PO DAILY High Cholesterol 11/22/23
sodium bicarbonate 650 mg tablet 1,300 mg PO BID Electrolyte Repletion 11/22/23
Allergies
-
Allergies
Allergy/AdvReac Type Severity Reaction Status Date / Time
No Known Allergies Allergy Verified 11/22/23 16:09
Vital Signs / Labs
-
Vital Signs and Labs:
Temp Pulse Resp BP Pulse Ox
98.2 F 85 16 142/87 94
11/29/23 11:30 11/29/23 12:45 11/29/23 12:00 11/29/23 12:50 11/29/23 13:04
11/29/23 04:58
11/29/23 04:58
11/28/23 11/28/23 11/29/23
17:10 21:08 04:58
RBC 3.25 L
Hgb 9.4 L
Hct 28.6 L
MCHC 32.9 L
MPV 11.1 H
BUN 41 H
Creatinine 3.8 H
Glucose 127 H
POC Glucose 157 H 182 H
11/29/23 11/29/23
08:13 11:35
RBC
Hgb
Hct
MCHC
MPV
BUN
Creatinine
Glucose
POC Glucose 122 H 150 H
--- NOTE | 2023-11-29 14:24 | PTCARENOTE ---
Patient is awake, alert and oriented to person, place and time. he is able to stand and pivot to commode with close supervision. patient is stating that his right hand has decreased sensation and has difficulty moving it. Patient had a brown bowel
movement, continent today. using urinal and commode. Denying pain when asked. compliant with plan of care.
[2023-11-29 15:00] LABS: Iron 52 ug/dl (49-181)
--- NOTE | 2023-11-29 15:04 | PTCARENOTE ---
Blood pressure 160-100. Patient is asymptomatic. Dr. Campbell notified. No new orders.
[2023-11-29 15:10] LABS: Percent Saturation 26 % (20-50); Total Iron Binding Capacity 195 ug/dl (261-462)
--- NOTE | 2023-11-29 15:19 | CM ---
Patient with Dx Acute hypoxemic respiratory failure, sepsis, DAMARI on CKD 4. New HD. Receiving IV Abx.
Received phone call from Jerry Bakeror x [phone]; patient is cleared financially and medical clearance is pending. Tentative Schedule Letter sent.
Met with patient and spoke with patient's Katie; provided update that [facility] indicated he is cleared financially and medical clearance is pending- tentative Schedule Letter provided to patient: Sherlyn Cline MWF 5:50am. went on
[employer] website and was able to sign patient up for [facility]. She is asking if patient can have stair training.
is requesting notice of d/c 3 days in advance so she can fly home to be with the patient.
Message to Alejandra LORA & Yadira OT with request for stair training.
Plan notify 3 days in advance of d/c so she can fly home.
Plan follow up with [facility] for HD clearance.
Plan home with Outpatient HD and [facility].
--- NOTE | 2023-11-29 15:45 | VNURNOTE ---
Chart reviewed.
[facility] referral completed in 'saved' mode in [facility] until closer to discharge home.
Referral needs to be sent closer to discharge.
--- NOTE | 2023-11-29 16:39 | W.PN.HOSP.TC ---
Today's Communication/Plan
-
HD and monitoring of renal function through the weekend.
Most likely will require set up of outpatient HD.
Complete neurologic evaluation for newly diagnosed CVA.
Monitor hemoglobin
GI evaluation prior to consideration of resumption of anticoagulation.
Complete antibiotics for bilateral likely aspiration pneumonia through 11/30
Physical therapy assessment
Assessment / Plan
Assessment / Plan
Impression:
Acute hypoxemic respiratory failure
� Likely secondary to volume overload with progressive renal disease, versus pneumonia.
Bilateral bacterial pneumonia suspected.
Acute kidney injury on chronic kidney disease requiring hemodialysis initiation over this admission
Increased anion gap metabolic acidosis
Atrial fibrillation with rapid ventricular response, new onset
Failure to thrive
Right upper extremity distal paresthesia
Conditions prior to admission:
CKD stage IV.
Anemia of chronic disease/CKD
Essential hypertension
Dyslipidemia
Type 2 diabetes
Plan
Acute hypoxic respiratory failure -likely multifactorial etiology including renal failure induced pulmonary edema, possible pneumonia, etc.
Remains with higher oxygen requirements
Repeat chest x-ray 11/26 with persistent left lower lobe consolidation
Attempt to wean off oxygen as tolerates
Sepsis -possibly due to pneumonia present on admission now resolved. CT scan of the chest 11/23: Consolidative parenchymal opacity involving most of the left lower lobe, compatible with consolidative pneumonia. There is also patchy groundglass
parenchymal opacity within the posterior aspect of the adjacent left upper lobe and the lingula, compatible with pneumonia but less consolidative.
Hemodynamically stable. No fevers at home but did have chills. Denies abdominal pain. Urinalysis without significant pyuria. COVID-19 negative, influenza negative. Blood cultures negative so far. Will change antibiotics to ceftriaxone and
doxycycline to cover community-acquired pneumonia. Follow-up imaging with initiation of hemodialysis.
Continue antibiotics ceftriaxone/doxycycline for another 24 hours through 11/30 to complete 7-day course of therapy.
DAMARI on CKD 4 -suspect progression of renal failure and likely approaching ESRD. Nongap metabolic acidosis noted. Oliguric. Continue sodium bicarb.
He is uremic given significant anorexia and weight loss.
Plan is for hemodialysis initiation.
IR consulted for temporary dialysis catheter placement.
Escalera catheter inserted. Bladder scan was 237 cc prior to insertion.
Plan is for inpatient hemodialysis for the next few days monitoring urine output and recovery of renal function with hope is to come off dialysis prior to discharge.
Atrial fibrillation with rapid ventricular response
Hemodynamically stable.
Echocardiogram 11/24 with mild left ventricular dilation with severe left ventricular hypertrophy, mild global hypokinesis and mildly reduced left ventricular systolic function with LVEF of 40%. Severe left atrial dilation. No evidence of pulmonary
hypertension.
Transitioned off IV Cardizem drip to Coreg at increased dose
Cardiology consultation appreciated
CHADSVASC2 5 (CHF, hypertension, diabetes, age).
Initiated on Xarelto on 11/24.
Developed dark heme positive stools on 11/25.
Hemoglobin stable.
Xarelto placed on hold on 11/26
Acute CVA
Patient complains of persistent initiated prior to this admission right arm weakness and paresthesia
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
Given presentation this is less likely embolic CVA, although patient with newly diagnosed paroxysmal atrial fibrillation
Discussed with neurology.
Additional brain imaging including MRI not required
Agree with carotid ultrasound to evaluate for atheroembolic risk.
Patient was initiated on Xarelto for new diagnosis of atrial fibrillation, although developed melanotic stool. Xarelto has been discontinued
Will start aspirin
Speech and swallow patient with no overt aspiration
Blind MoCA score 05/15 (normal 19)
Chronic normocytic anemia -follow hemoglobin
Dark heme positive stool while on Xarelto
Xarelto discontinued
Hemoglobin remained stable with no evidence of brisk blood loss
Patient reports no chronic gastrointestinal issues including negative history of PUD
Colonoscopy about 3 years ago with no abnormalities.
Given new A-fib, acute CVA, and patient considering stroke prevention including anticoagulation, consult gastroenterology with consideration of endoscopic evaluation inpatient versus outpatient prior to resumption of anticoagulation
Thrombocytopenia -follow daily
Essential HTN -stable.
DM2 with hyperglycemia -hemoglobin A1c 5.5. Continue preadmission regimen including Lantus 4 units. Continue serial Accu-Cheks and low-dose basal bolus protocol.
Hyperlipidemia -on Zocor.
Full code
Anticipated Discharge: 24 - 48 hours
Subjective/Interval History
-
Date of Service: November 29, 2023
Objective Data
-
Labs:
Laboratory Results
11/29/23
04:58
WBC 9.1
Hgb 9.4 L
Hct 28.6 L
Plt Count 201
Sodium 137
Potassium 3.8
Chloride 100
Carbon Dioxide 23
BUN 41 H
Creatinine 3.8 H
Glucose 127 H
Calcium 8.9
Vital Signs:
Vital Signs
Temp Pulse Resp BP Pulse Ox
98.4 F 80 21 148/91 97
11/29/23 15:33 11/29/23 15:23 11/29/23 15:23 11/29/23 15:23 11/29/23 15:23
I&O
11/28/23 11/29/23 11/30/23
06:59 06:59 06:59
Intake Total 410 / 410 410 / 410 500 / 500
Output Total 875 / 875 200 / 200 275 / 275
Balance -465 / -465 210 / 210 225 / 225
Physical Exam
-
General: Well Developed and No Apparent Distress
HEENT: Normocephalic, Atraumatic and Moist Mucous Membranes
Respiratory: Clear to Auscultation
Cardiac: Regular Rhythm and S1/S2; Negative Murmur, Rub or Gallop
GI: Soft, Nontender, Nondistended and Normal Bowel Sounds; Negative Organomegaly
Rectal: Deferred by Provider
Musculoskeletal: No Clubbing, No Cyanosis and No Edema
Skin: Negative Rash
Neuro: Awake, Alert, Oriented, AO x 3 and Nonfocal/Grossly Intact
[2023-11-29 16:41] LABS: Glucose - Point of Care 131 mg/dl (70-99)
[2023-11-29] MEDS: LANTUS 0.0400000000000000008 UNITS SC (16:51)
[2023-11-29] MEDS: LOW STRENGTH ASPIRIN 81 MG PO (16:54)
[2023-11-29 21:35] LABS: Glucose - Point of Care 122 mg/dl (70-99)
--- NOTE | 2023-11-29 21:41 | PTCARENOTE ---
[facility]HS completed at change of shift with NANCY Mcclelland. NIH score of 1 for decreased sensation to right hand/fingers. Pt offers no other complaints.
[2023-11-29] MEDS: PROTONIX IV 40 MG IV (22:24)
[2023-11-29] MEDS: NSS (PRESERVATIVE FREE) IV (22:25)
[2023-11-30] VITALS (21 sets, daily range): BP systolic 141–180; BP diastolic 79–119; PULSE 93; O2SAT 97; BMI 26.3
[2023-11-30 08:30] LABS: Glucose - Point of Care 90 mg/dl (70-99)
[2023-11-30 08:32] LABS: Hematocrit 24.6 % (39.0-52.0); Hemoglobin 8.3 g/dL (13.0-18.0); Mean Corp Hgb Conc. 33.7 g/dL (33.0-37.0); Mean Corpuscular Volume 88.8 fL (80.0-94.0); Mean Platelet Volume 10.7 fL (7.4-10.4); Platelet Count 209 10^3/uL (130-400); Red Blood Cell Count 2.77 10^6/uL (4.70-6.10); Red Cell Dist. Width 12.5 % (11.5-14.5); White Blood Cell Count 8.3 10^3/uL (4.8-10.8)
[2023-11-30] MEDS: NOVOLOG FLEXPEN-LOW RESISTANCE SC ×3 (09:09→17:20)
[2023-11-30 09:35] LABS: ALT (SGPT) 45 U/L (0-50); AST (SGOT) 44 U/L (17-59); Albumin 3.2 g/dl (3.5-5.0); Alkaline Phosphatase 65 U/L (38-126); Blood Urea Nitrogen 54 mg/dl (9-20); Calcium 8.7 mg/dl (8.4-10.2); Carbon Dioxide 27 mmol/L (22-30); Chloride 99 mmol/L (98-107); Direct Bilirubin 0.5 mg/dl (0.0-0.4); Estimated Creatinine Clearance 14 ml/min; Glucose 96 mg/dl (70-99); Potassium 3.5 mmol/L (3.5-5.1); Sodium 138 mmol/L (135-145); Total Bilirubin 0.5 mg/dl (0.2-1.3); Total Protein 6.2 g/dl (6.3-8.2); eGFR 12.18
--- NOTE | 2023-11-30 10:18 | PTCARENOTE ---
Pt on HD sleeping . called and given update.
[2023-11-30] MEDS: RETACRIT 10000 UNITS IV (10:48)
--- NOTE | 2023-11-30 11:15 | W.PN.NEPH.HD ---
Assessment
-
pt seen during HD
vitals stable
non oliguric but cr increasing between HD
would plan to place tunneled catheter early next week
hb over all stable, high dose BENNY off AC
updated on phone
Progress Note - Hemodialysis
-
Date of Service: November 30, 2023
Duration: 30 minutes and 3 hours
Potassium Bath: 3
Calcium Bath: 2.5
Opti-Dialyzer: 160
Ultrafiltration: Other (1.5kg)
Blood Flow: 400
Dialysate Flow: 600
Heparin: no
EPO: [id number]
[2023-11-30] MEDS: NSS (PRESERVATIVE FREE) 10 ML IV ×2 (12:10→20:38)
[2023-11-30] MEDS: PROTONIX IV 40 MG IV ×2 (12:10→20:38)
[2023-11-30] MEDS: ROCEPHIN 2000 MG IV (12:11)
[2023-11-30] MEDS: MIRALAX 17 GRAMS PO (12:11)
[2023-11-30] MEDS: LOW STRENGTH ASPIRIN 81 MG PO (12:12)
[2023-11-30] MEDS: COREG 6.25 MG PO ×2 (12:12→20:38)
[2023-11-30] MEDS: VIBRAMYCIN 100 MG PO ×2 (12:12→20:38)
[2023-11-30] MEDS: LIPITOR 20 MG PO (12:26)
[2023-11-30] MEDS: STERILE WATER FOR INJECTION 20 ML IV (12:26)
[2023-11-30 12:29] LABS: Glucose - Point of Care 75 mg/dl (70-99)
--- NOTE | 2023-11-30 13:32 | W.PN.HOSP.TC ---
Today's Communication/Plan
-
Monitor vital signs and see plan
Discussed AC with patient and he is refusing anticoagulation. he understands risk of another CVA without being on AC and he is ok with it
HD today
Monitor hemoglobin
Continue antibiotics
Assessment / Plan
Assessment / Plan
Impression:
Acute hypoxemic respiratory failure
� Likely secondary to volume overload with progressive renal disease, versus pneumonia.
Bilateral bacterial pneumonia suspected.
Acute kidney injury on chronic kidney disease requiring hemodialysis initiation over this admission
Increased anion gap metabolic acidosis
Atrial fibrillation with rapid ventricular response, new onset
Failure to thrive
Right upper extremity distal paresthesia
Conditions prior to admission:
CKD stage IV.
Anemia of chronic disease/CKD
Essential hypertension
Dyslipidemia
Type 2 diabetes
Plan
Acute hypoxic respiratory failure -likely multifactorial etiology including renal failure induced pulmonary edema, possible pneumonia, etc.
Remains with higher oxygen requirements
Repeat chest x-ray 11/26 with persistent left lower lobe consolidation
Attempt to wean off oxygen as tolerates
Sepsis -possibly due to pneumonia present on admission now resolved. CT scan of the chest 11/23: Consolidative parenchymal opacity involving most of the left lower lobe, compatible with consolidative pneumonia. There is also patchy groundglass
parenchymal opacity within the posterior aspect of the adjacent left upper lobe and the lingula, compatible with pneumonia but less consolidative.
Hemodynamically stable. No fevers at home but did have chills. Denies abdominal pain. Urinalysis without significant pyuria. COVID-19 negative, influenza negative. Blood cultures negative so far. Will change antibiotics to ceftriaxone and
doxycycline to cover community-acquired pneumonia. Follow-up imaging with initiation of hemodialysis.
Continue antibiotics ceftriaxone/doxycycline for another 24 hours through 11/30 to complete 7-day course of therapy.
DAMARI on CKD 4 -suspect progression of renal failure and likely approaching ESRD. Nongap metabolic acidosis noted. Oliguric. Continue sodium bicarb.
He is uremic given significant anorexia and weight loss.
Plan is for hemodialysis initiation.
IR consulted for temporary dialysis catheter placement.
Escalera catheter inserted. Bladder scan was 237 cc prior to insertion.
Plan is for inpatient hemodialysis for the next few days monitoring urine output and recovery of renal function with hope is to come off dialysis prior to discharge.
Atrial fibrillation with rapid ventricular response
Hemodynamically stable.
Echocardiogram 11/24 with mild left ventricular dilation with severe left ventricular hypertrophy, mild global hypokinesis and mildly reduced left ventricular systolic function with LVEF of 40%. Severe left atrial dilation. No evidence of pulmonary
hypertension.
Transitioned off IV Cardizem drip to Coreg at increased dose
Cardiology consultation appreciated
CHADSVASC2 5 (CHF, hypertension, diabetes, age).
Initiated on Xarelto on 11/24.
Developed dark heme positive stools on 11/25.
Hemoglobin stable.
Xarelto placed on hold on 11/26
Discussed AC with patient and he is refusing anticoagulation. he understands risk of another CVA without being on AC and he is ok with it.
Acute CVA
Patient complains of persistent initiated prior to this admission right arm weakness and paresthesia
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
Given presentation this is less likely embolic CVA, although patient with newly diagnosed paroxysmal atrial fibrillation
Discussed with neurology.
Additional brain imaging including MRI not required
Agree with carotid ultrasound to evaluate for atheroembolic risk.
Patient was initiated on Xarelto for new diagnosis of atrial fibrillation, although developed melanotic stool. Xarelto has been discontinued
Will start aspirin
Speech and swallow patient with no overt aspiration
Blind MoCA score 05/15 (normal 19)
Chronic normocytic anemia -follow hemoglobin
Dark heme positive stool while on Xarelto
Xarelto discontinued
Hemoglobin remained stable with no evidence of brisk blood loss
Patient reports no chronic gastrointestinal issues including negative history of PUD
Colonoscopy about 3 years ago with no abnormalities.
Given new A-fib, acute CVA, and patient considering stroke prevention including anticoagulation, consult gastroenterology with consideration of endoscopic evaluation inpatient versus outpatient prior to resumption of anticoagulation
Discussed AC with patient and he is refusing anticoagulation. he understands risk of another CVA without being on AC and he is ok with
Thrombocytopenia -follow daily
Essential HTN -stable.
DM2 with hyperglycemia -hemoglobin A1c 5.5. Continue preadmission regimen including Lantus 4 units. Continue serial Accu-Cheks and low-dose basal bolus protocol.
Hyperlipidemia -on Zocor.
Full code
General: Well Developed and No Apparent Distress
HEENT: Normocephalic, Atraumatic and Moist Mucous Membranes
Respiratory: Clear to Auscultation
Cardiac: Regular Rhythm and S1/S2; Negative Murmur, Rub or Gallop
GI: Soft, Nontender, Nondistended and Normal Bowel Sounds
Musculoskeletal: No Clubbing, No Cyanosis and No Edema
Neuro: Awake, Alert, Oriented, AO x 3 and Nonfocal/Grossly Intact
I spent a total of 52 minutes with the patient or on the floor. More than 50% of this time involved counseling and coordination of care.
Anticipated Discharge: > 48 hours
Subjective/Interval History
-
Date of Service: November 30, 2023
denies pain
Objective Data
-
Labs:
Laboratory Results
11/30/23
08:11
WBC 8.3
Hgb 8.3 L
Hct 24.6 L
Plt Count 209
Sodium 138
Potassium 3.5
Chloride 99
Carbon Dioxide 27
BUN 54 H
Creatinine 4.7 H*
Glucose 96
Calcium 8.7
Total Bilirubin 0.5
AST 44
ALT 45
Alkaline Phosphatase 65
Vital Signs:
Vital Signs
Temp Pulse Resp BP Pulse Ox
98.3 F 70 18 160/79 96
11/30/23 11:45 11/30/23 12:12 11/30/23 11:00 11/30/23 12:12 11/30/23 11:00
I&O
11/29/23 11/30/23 12/01/23
06:59 06:59 06:59
Intake Total 410 / 410 500 / 500
Output Total 200 / 200 850 / 850
Balance 210 / 210 -350 / -350
--- NOTE | 2023-11-30 16:27 | PTCARENOTE ---
US called re abd us that was not done this morning, us tech states let pt eat dinner he will probably be done Saturday
[2023-11-30 17:26] LABS: Glucose - Point of Care 123 mg/dl (70-99)
[2023-11-30] MEDS: LANTUS 0.0400000000000000008 UNITS SC (17:42)
--- NOTE | 2023-11-30 20:46 | W.PN.GI.CBS2 ---
Today's Communication / Plan
-
PLAN:
-Anemia with reported black stool but brown stool noted in the last couple of days
Stable hemoglobin , without any need for blood transfusion
No evidence of overt GI bleeding, given recent CVA, possible pneumonia no velasquez to do, upper endoscopy at this time.
Continue Protonix 40 mg IV twice daily. Can switch to oral tomorrow.
Monitor H&H and transfuse if needed.
If anticoagulation needs to be started, okay to start anticoagulation and we can watch hemoglobin and also for any evidence of GI bleeding closely.
Will do urgent endoscopy if need be.
Patient at this time refusing anticoagulation.
-Elevated transaminases,hepatitis serologies negative
Now completely normalized.
If LFTs go up again, check abdominal ultrasound
No GI interventions at this time, will sign off. Please call back if patient is agreeable for EGD or if there is overt active bleeding again.
Assessment / Plan
-
Pt is a 78yo with hx CKD stage 4, HTN, hyperlipidemia, NIDDM with admission 11/21 with dizziness, weakness and decrease appetite on admission noted with creat 6.5 with bun 81 and noted with hypoxemia with concern for PNA vs volume overload with acute
on chronic renal disease. He was treated with antibiotics and started HD He was noted with Afib with RVR with Xarelto 11/24 and 11/25 and pt refused 11/26. He was then noted 11/27 with new non hemorrhagic infarct involving basal ganglia. He has been
seen by neurology and recommended ASA and hold anticoagulation with melena and anemia. Hx colonoscopy at [facility] recalls as stable no EGD. No NSAID use other than ASA. Also noted increased LFT's 11/24 bili 0.6, AST 91, ALT 74, alk phos 63.
-recent melena after Xarelto use
-anemia - no baseline noted
-acute on chronic CKD now on HD
-PNA
-new new hemorrhagic basal ganglion infarct
-afib with RVR
-increased LFT's
other med problems:
-NIDDM
-HTN
-hyperlipidemia
PLAN:
-Anemia with reported black stool but brown stool noted in the last couple of days
Stable hemoglobin , without any need for blood transfusion
No evidence of overt GI bleeding, given recent CVA, possible pneumonia no velasquez to do, upper endoscopy at this time.
Continue Protonix 40 mg IV twice daily. Can switch to oral tomorrow.
Monitor H&H and transfuse if needed.
If anticoagulation needs to be started, okay to start anticoagulation and we can watch hemoglobin and also for any evidence of GI bleeding closely.
Will do urgent endoscopy if need be.
Patient at this time refusing anticoagulation.
-Elevated transaminases,hepatitis serologies negative
Now completely normalized.
If LFTs go up again, check abdominal ultrasound
No GI interventions at this time, will sign off. Please call back if patient is agreeable for EGD or if there is overt active bleeding again.
Subjective
Subjective
Date of Service: November 30, 2023
Patient without any events overnight and no complaints
Brown stool again today
Objective
Data Reviewed
Laboratory Data:
Laboratory Results
11/30/23 08:11
11/30/23 08:11
Laboratory Results
Total Bilirubin 0.5 mg/dl (0.2-1.3) 11/30/23 08:11
AST 44 U/L (17-59) 11/30/23 08:11
ALT 45 U/L (0-50) 11/30/23 08:11
Alkaline Phosphatase 65 U/L (38-126) 11/30/23 08:11
Vital Signs and I&O:
Vital Signs
Temp Pulse Resp BP Pulse Ox
98.7 F 74 25 160/79 97
11/30/23 19:30 11/30/23 20:38 11/30/23 18:00 11/30/23 12:12 11/30/23 18:00
I&O
11/29/23 11/30/23 12/01/23
06:59 06:59 06:59
Intake Total 410 / 410 500 / 500 240 / 240
Output Total 200 / 200 850 / 850
Balance 210 / 210 -350 / -350 240 / 240
Physical Exam
Physical Exam
GI: Soft, Non Distended and Non Tender
[2023-11-30 22:27] LABS: Glucose - Point of Care 117 mg/dl (70-99)
[2023-12-01] VITALS (8 sets, daily range): BP systolic 124–154; BP diastolic 73–96; BMI 25.8
--- NOTE | 2023-12-01 04:23 | PTCARENOTE ---
NIHS unchanged. Sp02 mid 90s on RA. Afebrile. No gi/gu complaints. Denies any pain. NSR w/ PACs on tele monitor, HR 60-80s. Patient has been NPO since VT for Abd US this morning. Right HD IJ dressing intact. Up to BSC independently, steady gait.
Turns self while in bed. CB within reach, pt calls appropriately.
[2023-12-01 05:46] LABS: % Basophils 0.3 % (0-2); % Eosinophils 2.6 % (0-6); % Immature Granulocytes 1.8 % (0-0.5); % Lymphocytes 14.1 % (20.5-51.1); % Monocytes 7.5 % (1.7-9.3); % Neutrophils 73.7 % (42.2-75.2); Absolute Eosinophils 0.2 10^3/uL (0-0.7); Absolute Immature Granulocytes 0.2 10^3/uL (0-0.05); Absolute Lymphocytes 1.3 10^3/uL (1.2-3.4); Absolute Monocytes 0.7 10^3/uL (0.1-0.6); Absolute Neutrophils 6.9 10^3/uL (1.4-6.5); Hematocrit 24.6 % (39.0-52.0); Hemoglobin 8.4 g/dL (13.0-18.0); Mean Corp Hgb Conc. 34.1 g/dL (33.0-37.0); Mean Corpuscular Hgb 29.2 pg (27.0-31.0); Mean Corpuscular Volume 85.4 fL (80.0-94.0); Mean Platelet Volume 10.9 fL (7.4-10.4); Nucleated Red Blood Cells % 0 % (-); Platelet Count 215 10^3/uL (130-400); Red Blood Cell Count 2.88 10^6/uL (4.70-6.10); Red Cell Dist. Width 12.5 % (11.5-14.5); White Blood Cell Count 9.4 10^3/uL (4.8-10.8)
[2023-12-01 06:01] LABS: ALT (SGPT) 41 U/L (0-50); AST (SGOT) 42 U/L (17-59); Albumin 3.2 g/dl (3.5-5.0); Blood Urea Nitrogen 43 mg/dl (9-20); Carbon Dioxide 24 mmol/L (22-30); Estimated Creatinine Clearance 18 ml/min; Glucose 107 mg/dl (70-99); Total Bilirubin 0.6 mg/dl (0.2-1.3); Total Protein 5.9 g/dl (6.3-8.2); eGFR 16.23
[2023-12-01 06:03] LABS: Calcium 8.7 mg/dl (8.4-10.2); Potassium 3.8 mmol/L (3.5-5.1)
[2023-12-01 06:43] LABS: Alkaline Phosphatase 68 U/L (38-126); Chloride 98 mmol/L (98-107); Sodium 135 mmol/L (135-145)
[2023-12-01] MEDS: NOVOLOG FLEXPEN-LOW RESISTANCE SC ×3 (08:45→17:15)
[2023-12-01] MEDS: NSS (PRESERVATIVE FREE) 10 ML IV ×2 (08:46→21:21)
[2023-12-01] MEDS: VIBRAMYCIN 100 MG PO (08:46)
[2023-12-01] MEDS: LIPITOR 20 MG PO (08:46)
[2023-12-01] MEDS: LOW STRENGTH ASPIRIN 81 MG PO (08:46)
[2023-12-01] MEDS: PROTONIX IV 40 MG IV ×2 (08:46→21:21)
[2023-12-01] MEDS: MIRALAX 17 GRAMS PO (08:46)
[2023-12-01] MEDS: COREG 6.25 MG PO ×2 (08:46→21:18)
[2023-12-01] MEDS: ROCEPHIN 2000 MG IV (08:47)
[2023-12-01] MEDS: STERILE WATER FOR INJECTION 20 ML IV (08:47)
--- NOTE | 2023-12-01 12:59 | W.PN.HOSP.TC ---
Today's Communication/Plan
-
Monitor vital signs and see plan
HD per nephrology
Patient refusing anticoagulation at this time
monitor hgb
Assessment / Plan
Assessment / Plan
Impression:
Acute hypoxemic respiratory failure
� Likely secondary to volume overload with progressive renal disease, versus pneumonia.
Bilateral bacterial pneumonia suspected.
Acute kidney injury on chronic kidney disease requiring hemodialysis initiation over this admission
Increased anion gap metabolic acidosis
Atrial fibrillation with rapid ventricular response, new onset
Failure to thrive
Right upper extremity distal paresthesia
Conditions prior to admission:
CKD stage IV.
Anemia of chronic disease/CKD
Essential hypertension
Dyslipidemia
Type 2 diabetes
Plan
Acute hypoxic respiratory failure -likely multifactorial etiology including renal failure induced pulmonary edema, possible pneumonia, etc.
Remains with higher oxygen requirements
Repeat chest x-ray 11/26 with persistent left lower lobe consolidation
Attempt to wean off oxygen as tolerates
Sepsis -possibly due to pneumonia present on admission now resolved. CT scan of the chest 11/23: Consolidative parenchymal opacity involving most of the left lower lobe, compatible with consolidative pneumonia. There is also patchy groundglass
parenchymal opacity within the posterior aspect of the adjacent left upper lobe and the lingula, compatible with pneumonia but less consolidative.
Hemodynamically stable. No fevers at home but did have chills. Denies abdominal pain. Urinalysis without significant pyuria. COVID-19 negative, influenza negative. Blood cultures negative so far. Will change antibiotics to ceftriaxone and
doxycycline to cover community-acquired pneumonia. Follow-up imaging with initiation of hemodialysis.
finished abx
DAMARI on CKD 4 -suspect progression of renal failure and likely approaching ESRD. Nongap metabolic acidosis noted. Oliguric. Continue sodium bicarb.
He is uremic given significant anorexia and weight loss.
Plan is for hemodialysis initiation.
IR consulted for temporary dialysis catheter placement.
Escalera catheter inserted. Bladder scan was 237 cc prior to insertion.
Plan is for inpatient hemodialysis for the next few days monitoring urine output and recovery of renal function with hope is to come off dialysis prior to discharge.
Atrial fibrillation with rapid ventricular response
Hemodynamically stable.
Echocardiogram 11/24 with mild left ventricular dilation with severe left ventricular hypertrophy, mild global hypokinesis and mildly reduced left ventricular systolic function with LVEF of 40%. Severe left atrial dilation. No evidence of pulmonary
hypertension.
Transitioned off IV Cardizem drip to Coreg at increased dose
Cardiology consultation appreciated
CHADSVASC2 5 (CHF, hypertension, diabetes, age).
Initiated on Xarelto on 11/24.
Developed dark heme positive stools on 11/25.
Hemoglobin stable.
Xarelto placed on hold on 11/26
Discussed AC with patient and he is refusing anticoagulation. he understands risk of another CVA without being on AC and he is ok with it.
Acute CVA
Patient complains of persistent initiated prior to this admission right arm weakness and paresthesia
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
Given presentation this is less likely embolic CVA, although patient with newly diagnosed paroxysmal atrial fibrillation
Discussed with neurology.
Additional brain imaging including MRI not required
Agree with carotid ultrasound to evaluate for atheroembolic risk.
Patient was initiated on Xarelto for new diagnosis of atrial fibrillation, although developed melanotic stool. Xarelto has been discontinued
Will start aspirin
Speech and swallow patient with no overt aspiration
Blind MoCA score 11 (normal 19)
Chronic normocytic anemia -follow hemoglobin
Dark heme positive stool while on Xarelto
Xarelto discontinued
Hemoglobin remained stable with no evidence of brisk blood loss
Patient reports no chronic gastrointestinal issues including negative history of PUD
Colonoscopy about 3 years ago with no abnormalities.
Given new A-fib, acute CVA, and patient considering stroke prevention including anticoagulation, consult gastroenterology with consideration of endoscopic evaluation inpatient versus outpatient prior to resumption of anticoagulation
Discussed AC with patient and he is refusing anticoagulation. he understands risk of another CVA without being on AC and he is ok with
Thrombocytopenia -follow daily
Essential HTN -stable.
DM2 with hyperglycemia -hemoglobin A1c 5.5. Continue preadmission regimen including Lantus 4 units. Continue serial Accu-Cheks and low-dose basal bolus protocol.
Hyperlipidemia -on Zocor.
Full code
General: Well Developed and No Apparent Distress
HEENT: Normocephalic, Atraumatic and Moist Mucous Membranes
Respiratory: Clear to Auscultation
Cardiac: Regular Rhythm and S1/S2; Negative Murmur, Rub or Gallop
GI: Soft, Nontender, Nondistended and Normal Bowel Sounds
Musculoskeletal: No Clubbing, No Cyanosis and No Edema
Neuro: Awake, Alert, Oriented, AO x 3 and Nonfocal/Grossly Intact
Anticipated Discharge: > 48 hours
Subjective/Interval History
-
Date of Service: December 01, 2023
denies pain
Objective Data
-
Labs:
Laboratory Results
12/01/23
05:34
WBC 9.4
Hgb 8.4 L
Hct 24.6 L
Plt Count 215
Sodium 135
Potassium 3.8
Chloride 98
Carbon Dioxide 24
BUN 43 H
Creatinine 3.7 H
Glucose 107 H
Calcium 8.7
Total Bilirubin 0.6
AST 42
ALT 41
Alkaline Phosphatase 68
Vital Signs:
Vital Signs
Temp Pulse Resp BP Pulse Ox
98.5 F 84 22 124/85 97
12/01/23 07:10 12/01/23 10:37 12/01/23 10:37 12/01/23 10:37 12/01/23 10:00
I&O
11/30/23 12/01/23 12/02/23
06:59 06:59 06:59
Intake Total 500 / 500 240 / 240
Output Total 850 / 850
Balance -350 / -350 240 / 240
[2023-12-01 13:07] LABS: Glucose - Point of Care 173 mg/dl (70-99)
--- NOTE | 2023-12-01 13:30 | W.PN.NEPH.PH ---
Today's Communication / Plan
-
IR to have tunneled catheter
HD saturday
Assessment/Plan
-
Assessment:
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
Uremia
Anemia
HTN
DLD
T2DM
Plan:
follow BMP and UOP
no renal recovery noted though non oliguric
plan to have tunneled catheter by IR
HD TTS, need HD unit placement
CVA noted on CT head but with GIB pt refuses AC
d/w pt
-
-
Date of Service: December 01, 2023
CC / HPI / ROS
-
Chief Complaint:
DAMARI
History of Present Illness:
tolerated HD yesterday
BP stale
nonoliguric subjectively
wt decreasing on RA
hb low 8.4
Review of Systems:
no CP/SOB
no dark stool
Labs
-
Labs:
WBC 9.4 10^3/uL (4.8-10.8) 12/01/23 05:34
RBC 2.88 10^6/uL (4.70-6.10) L 12/01/23 05:34
Hgb 8.4 g/dL (13.0-18.0) L 12/01/23 05:34
Hct 24.6 % (39.0-52.0) L 12/01/23 05:34
Plt Count 215 10^3/uL (130-400) 12/01/23 05:34
Sodium 135 mmol/L (135-145) 12/01/23 05:34
Potassium 3.8 mmol/L (3.5-5.1) 12/01/23 05:34
Chloride 98 mmol/L (98-107) 12/01/23 05:34
Carbon Dioxide 24 mmol/L (22-30) 12/01/23 05:34
BUN 43 mg/dl (9-20) H 12/01/23 05:34
Creatinine 3.7 mg/dL (0.7-1.3) H 12/01/23 05:34
eGFR 16.23 12/01/23 05:34
Glucose 107 mg/dl (70-99) H 12/01/23 05:34
Calcium 8.7 mg/dl (8.4-10.2) 12/01/23 05:34
Albumin 3.2 g/dl (3.5-5.0) L 12/01/23 05:34
Physical Exam
-
Vital Signs:
Vital Signs
Temp Pulse Resp BP Pulse Ox
98.5 F 84 22 124/85 97
12/01/23 07:10 12/01/23 10:37 12/01/23 10:37 12/01/23 10:37 12/01/23 10:00
Cardiovascular:: Regular rate and rhythm
Respiratory:: Bilateral: CTA
Lung Excursion:: Normal
Abdomen:: Nontender and Soft
Extremity Edema:: None: Bilateral: (trace)
Escalera Catheter: No
--- NOTE | 2023-12-01 15:13 | PTCARENOTE ---
NIHSS remains at 1, unchanged. AAOx3, 97% on RAIR - pox removed. BP having difficulty in reading- cuff changed out this pm. SR on tele. Oliguric, also +BM today. Ambulatory, min assist set up with ADLs.
[2023-12-01 16:46] LABS: Glucose - Point of Care 133 mg/dl (70-99)
[2023-12-01] MEDS: LANTUS 0.0400000000000000008 UNITS SC (17:15)
[2023-12-01 21:57] LABS: Glucose - Point of Care 166 mg/dl (70-99)
[2023-12-02] VITALS (13 sets, daily range): BP systolic 62–182; BP diastolic 76–96; PULSE 82; BMI 25.9
[2023-12-02 05:12] LABS: % Basophils 0.2 % (0-2); % Eosinophils 2.5 % (0-6); % Immature Granulocytes 1.4 % (0-0.5); % Lymphocytes 15.8 % (20.5-51.1); % Monocytes 7.9 % (1.7-9.3); % Neutrophils 72.2 % (42.2-75.2); Absolute Eosinophils 0.2 10^3/uL (0-0.7); Absolute Immature Granulocytes 0.1 10^3/uL (0-0.05); Absolute Lymphocytes 1.4 10^3/uL (1.2-3.4); Absolute Monocytes 0.7 10^3/uL (0.1-0.6); Absolute Neutrophils 6.3 10^3/uL (1.4-6.5); Hematocrit 25.3 % (39.0-52.0); Hemoglobin 8.3 g/dL (13.0-18.0); Mean Corp Hgb Conc. 32.8 g/dL (33.0-37.0); Mean Corpuscular Hgb 28.6 pg (27.0-31.0); Mean Corpuscular Volume 87.2 fL (80.0-94.0); Mean Platelet Volume 10.3 fL (7.4-10.4); Nucleated Red Blood Cells % 0 % (-); Platelet Count 211 10^3/uL (130-400); Red Cell Dist. Width 12.6 % (11.5-14.5); White Blood Cell Count 8.7 10^3/uL (4.8-10.8)
--- NOTE | 2023-12-02 05:21 | PTCARENOTE ---
No acute changes overnight. NIHS unchanged. Clustering care for pt rest. NSR w/ PACs on tele. Denies any pain. Able to transfer self to [facility] independently. Call lu within reach. Plan for IR today for tunneled HD cath.
[2023-12-02 05:42] LABS: ALT (SGPT) 37 U/L (0-50); AST (SGOT) 36 U/L (17-59); Albumin 3.2 g/dl (3.5-5.0); Alkaline Phosphatase 67 U/L (38-126); Blood Urea Nitrogen 60 mg/dl (9-20); Calcium 8.9 mg/dl (8.4-10.2); Carbon Dioxide 23 mmol/L (22-30); Chloride 100 mmol/L (98-107); Estimated Creatinine Clearance 14 ml/min; Glucose 113 mg/dl (70-99); Sodium 137 mmol/L (135-145); Total Bilirubin 0.5 mg/dl (0.2-1.3); Total Protein 6.1 g/dl (6.3-8.2); eGFR 12.18
[2023-12-02 07:50] LABS: Glucose - Point of Care 120 mg/dl (70-99)
[2023-12-02] MEDS: NOVOLOG FLEXPEN-LOW RESISTANCE SC ×3 (07:53→17:49)
--- NOTE | 2023-12-02 08:24 | PTCARENOTE ---
Patient is NPO for Dialysis catheter change this afternoon. Patient is refusing oral medication at this time due to 'nausea if he takes them without food'. Medications will be given after procedure. Patient educated about plan of care.
--- NOTE | 2023-12-02 10:20 | W.PN.NEPH.PH ---
Today's Communication / Plan
-
Tunneled catheter today
Dialysis tomorrow
Likely discharge tomorrow after dialysis
Assessment/Plan
-
Assessment:
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
Uremia
Anemia
HTN
DLD
T2DM
Plan:
follow BMP and UOP, but creatinine keeps rising after dialysis
Dialysis will be scheduled for tomorrow
no renal recovery noted though non oliguric
plan to have tunneled catheter by IR today
HD TTS, need HD unit placement
CVA noted on CT head but with GIB pt refuses AC
Likely discharge tomorrow after dialysis
-
-
Date of Service: December 02, 2023
CC / HPI / ROS
-
Chief Complaint:
DAMARI
History of Present Illness:
Acute kidney injury now on dialysis
BP stable
nonoliguric subjectively
wt decreasing on RA
hb low 8.4
Review of Systems:
no CP/SOB
no dark stool
Nonoliguric
Labs
-
Labs:
WBC 8.7 10^3/uL (4.8-10.8) 12/02/23 05:01
RBC 2.90 10^6/uL (4.70-6.10) L 12/02/23 05:01
Hgb 8.3 g/dL (13.0-18.0) L 12/02/23 05:01
Hct 25.3 % (39.0-52.0) L 12/02/23 05:01
Plt Count 211 10^3/uL (130-400) 12/02/23 05:01
Sodium 137 mmol/L (135-145) 12/02/23 05:01
Potassium 4.0 mmol/L (3.5-5.1) 12/02/23 05:01
Chloride 100 mmol/L (98-107) 12/02/23 05:01
Carbon Dioxide 23 mmol/L (22-30) 12/02/23 05:01
BUN 60 mg/dl (9-20) H 12/02/23 05:01
Creatinine 4.7 mg/dL (0.7-1.3) H* 12/02/23 05:01
eGFR 12.18 12/02/23 05:01
Glucose 113 mg/dl (70-99) H 12/02/23 05:01
Calcium 8.9 mg/dl (8.4-10.2) 12/02/23 05:01
Albumin 3.2 g/dl (3.5-5.0) L 12/02/23 05:01
Physical Exam
-
Vital Signs:
Vital Signs
Temp Pulse Resp BP Pulse Ox
98.3 F 69 14 147/86 97
12/02/23 07:15 12/02/23 08:18 12/02/23 08:18 12/02/23 08:18 12/02/23 05:07
Cardiovascular:: Regular rate and rhythm
Respiratory:: Bilateral: CTA
Lung Excursion:: Normal
Abdomen:: Nontender and Soft
Bowel Sounds:: Normal
Extremity Edema:: +1: Bilateral:
Other Findings::
Right temporal IJ catheter
--- NOTE | 2023-12-02 12:04 | W.PN.HOSP.TC ---
Addendum entered and electronically signed by Nikita Campbell MD 12/02/23 15:39:
Patient seen and examined
Discussed with resident
Discussed with nephrology and case management
Impression/plan:*
Presentation with acute hypoxic respiratory failure likely multifactorial due to pneumonia as well as volume overload.
DAMARI on CKD requiring hemodialysis initiation over this admission
Acute left hemispheric CVA
New diagnosis of paroxysmal atrial fibrillation
Chronic anemia with heme positive stool while on Xarelto initiated over this admission
Respiratory status improved with hemodialysis and antibiotics
Weaned off to room air with no requirements for supplemental oxygen.
Tolerates HD and for tunnel catheter placement today
Patient declined systemic anticoagulation as well as GI workup with understanding of risk of recurrent CVA/thromboembolic event with atrial fibrillation.
Physical therapy assessment
Discharge planing including outpatient hemodialysis set up.
Original Note:
Today's Communication/Plan
-
- Tunneled catheter placement today.
- Dialysis likely tomorrow.
Assessment / Plan
Assessment / Plan
Impression:
Acute hypoxemic respiratory failure
Likely secondary to volume overload with progressive renal disease, versus pneumonia.
Bilateral bacterial pneumonia suspected.
Acute kidney injury on chronic kidney disease requiring hemodialysis initiation over this admission
Increased anion gap metabolic acidosis
Atrial fibrillation with rapid ventricular response, new onset
Failure to thrive
Right upper extremity distal paresthesia
Conditions prior to admission:
CKD stage IV.
Anemia of chronic disease/CKD
Essential hypertension
Dyslipidemia
Type 2 diabetes
Plan
Acute hypoxic respiratory failure -likely multifactorial etiology including renal failure induced pulmonary edema, possible pneumonia, etc.
Remains with higher oxygen requirements
Repeat chest x-ray 11/26 with persistent left lower lobe consolidation
Attempt to wean off oxygen as tolerates
Sepsis -possibly due to pneumonia present on admission now resolved. CT scan of the chest 11/23: Consolidative parenchymal opacity involving most of the left lower lobe, compatible with consolidative pneumonia. There is also patchy groundglass
parenchymal opacity within the posterior aspect of the adjacent left upper lobe and the lingula, compatible with pneumonia but less consolidative.
Hemodynamically stable. No fevers at home but did have chills. Denies abdominal pain. Urinalysis without significant pyuria. COVID-19 negative, influenza negative. Blood cultures negative so far. Will change antibiotics to ceftriaxone and
doxycycline to cover community-acquired pneumonia. Follow-up imaging with initiation of hemodialysis.
finished abx
DAMARI on CKD 4 -suspect progression of renal failure and likely approaching ESRD. Nongap metabolic acidosis noted. Oliguric. Continue sodium bicarb.
He is uremic given significant anorexia and weight loss.
Plan is for hemodialysis initiation.
IR consulted for temporary dialysis catheter placement.
Escalera catheter inserted. Bladder scan was 237 cc prior to insertion.
Plan is for inpatient hemodialysis for the next few days monitoring urine output and recovery of renal function with hope is to come off dialysis prior to discharge.
Tunneled catheter placement today; dialysis tomorrow.
Atrial fibrillation with rapid ventricular response
Hemodynamically stable.
Echocardiogram 11/24 with mild left ventricular dilation with severe left ventricular hypertrophy, mild global hypokinesis and mildly reduced left ventricular systolic function with LVEF of 40%. Severe left atrial dilation. No evidence of pulmonary
hypertension.
Transitioned off IV Cardizem drip to Coreg at increased dose
Cardiology consultation appreciated
CHADSVASC2 5 (CHF, hypertension, diabetes, age).
Initiated on Xarelto on 11/24.
Developed dark heme positive stools on 11/25.
Hemoglobin stable.
Xarelto placed on hold on 11/26
Discussed AC with patient and he is refusing anticoagulation. he understands risk of another CVA without being on AC and he is ok with it.
Acute CVA
Patient complains of persistent initiated prior to this admission right arm weakness and paresthesia
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
Given presentation this is less likely embolic CVA, although patient with newly diagnosed paroxysmal atrial fibrillation
Discussed with neurology.
Additional brain imaging including MRI not required
Agree with carotid ultrasound to evaluate for atheroembolic risk.
Patient was initiated on Xarelto for new diagnosis of atrial fibrillation, although developed melanotic stool. Xarelto has been discontinued
Will start aspirin
Speech and swallow patient with no overt aspiration
Blind MoCA score 11/22 (normal 19)
Chronic normocytic anemia -follow hemoglobin
Dark heme positive stool while on Xarelto
Xarelto discontinued
Hemoglobin remained stable with no evidence of brisk blood loss
Patient reports no chronic gastrointestinal issues including negative history of PUD
Colonoscopy about 3 years ago with no abnormalities.
Given new A-fib, acute CVA, and patient considering stroke prevention including anticoagulation, consult gastroenterology with consideration of endoscopic evaluation inpatient versus outpatient prior to resumption of anticoagulation
Discussed AC with patient and he is refusing anticoagulation. he understands risk of another CVA without being on AC and he is ok with
Thrombocytopenia -follow daily
Essential HTN -stable.
DM2 with hyperglycemia -hemoglobin A1c 5.5. Continue preadmission regimen including Lantus 4 units. Continue serial Accu-Cheks and low-dose basal bolus protocol.
Hyperlipidemia -on Zocor.
Full code
Anticipated Discharge: 24 - 48 hours
Subjective/Interval History
-
Date of Service: December 02, 2023
Objective Data
-
Labs:
Laboratory Results
12/02/23
05:01
WBC 8.7
Hgb 8.3 L
Hct 25.3 L
Plt Count 211
Sodium 137
Potassium 4.0
Chloride 100
Carbon Dioxide 23
BUN 60 H
Creatinine 4.7 H*
Glucose 113 H
Calcium 8.9
Total Bilirubin 0.5
AST 36
ALT 37
Alkaline Phosphatase 67
Vital Signs:
Vital Signs
Temp Pulse Resp BP Pulse Ox
98.3 F 69 14 147/86 97
12/02/23 07:15 12/02/23 08:18 12/02/23 08:18 12/02/23 08:18 12/02/23 05:07
I&O
12/01/23 12/02/23 12/03/23
06:59 06:59 06:59
Intake Total 240 / 240 980 / 980
Output Total 575 / 575
Balance 240 / 240 405 / 405
Review of Systems
-
History Source: Patient
Constitutional: Reports No Symptoms
EENT: Reports No Symptoms Reported
Respiratory: Reports No Symptoms
Cardiac: Reports No Symptoms
Abdomen/GI: Reports No Symptoms
Genitourinary: Reports No Symptoms
Musculoskeletal: Reports No Symptoms
Skin: Reports No Symptoms
Neuro: Reports No Symptoms
Endocrine: Reports No Symptoms
Hematologic / Lymphatic: Reports No Symptoms
Allergy / Immunology: Reports No Symptoms
Physical Exam
-
General: Well Developed and No Apparent Distress
HEENT: Normocephalic, Atraumatic and Moist Mucous Membranes
Respiratory: Clear to Auscultation
Cardiac: Regular Rhythm and S1/S2; Negative Murmur, Rub or Gallop
GI: Soft, Nontender, Nondistended and Normal Bowel Sounds; Negative Organomegaly
Rectal: Deferred by Provider
Musculoskeletal: No Clubbing, No Cyanosis and No Edema
Skin: Negative Rash
Neuro: Awake, Alert, Oriented, AO x 3 and Nonfocal/Grossly Intact
[2023-12-02 12:35] LABS: Glucose - Point of Care 107 mg/dl (70-99)
[2023-12-02] MEDS: ANCEF 10 IV (15:23)
--- NOTE | 2023-12-02 16:27 | CM ---
Patient with Dx Acute hypoxemic respiratory failure, sepsis, DAMARI on CKD 4. New HD. Room air. PT/OT recommend HH.
Spoke with Jerry Baker Coor x [phone] this morning; she requests HD flowsheets ---> faxed. Once flowsheets are received patient should be able to be medically cleared in 24 hours. Informed her of projected d/c date 12/03 with first outpt HD
date 12/05.
Spoke with Jerry Alonzo; flowsheets received. Medical clearance still pending. They have noted projected d/c date 12/03 with first outpt HD date 12/05.
Spoke with patient's Katie; she is planning on flying here tomorrow and arriving around 6pm. She requests d/c for 12/03 - informed her MDs said ok. She has [facility] still pending for rides to dialysis and will transport her to
HD until [facility] begins. She asks if VN is in place - confirmed [facility] has accepted.
Message from GENO Torres; patient will need script for RW and she will issue.
Message to Marquez May and Shannan; confirmed 12/03 ok for d/c. Dr Campbell will provide script for RW.
Plan follow up with Jerry for HD clearance.
Plan home 12/03 with Outpatient HD Sherlyn Cline, NATALEE, VN, with .
[2023-12-02] MEDS: COREG 6.25 MG PO ×2 (16:51→20:24)
[2023-12-02] MEDS: LIPITOR 20 MG PO (16:51)
[2023-12-02] MEDS: MIRALAX PO (16:51)
[2023-12-02] MEDS: LOW STRENGTH ASPIRIN 81 MG PO (16:51)
[2023-12-02] MEDS: ROCALTROL 0.25 MCG PO (16:54)
[2023-12-02 17:48] LABS: Glucose - Point of Care 120 mg/dl (70-99)
[2023-12-02] MEDS: NSS (PRESERVATIVE FREE) IV (18:12)
[2023-12-02] MEDS: STERILE WATER FOR INJECTION IV (18:12)
[2023-12-02] MEDS: PROTONIX IV IV (18:12)
[2023-12-02] MEDS: LANTUS 0.0400000000000000008 UNITS SC (18:24)
--- NOTE | 2023-12-02 18:27 | PTCARENOTE ---
Patient back from IR s/p dialysis catheter on right chest. Scant blood on gauze observed. Patient is now eating dinner, denying pain. Blood pressure 133/87, 81, pulse ox 98% on room air.
[2023-12-02] MEDS: PROTONIX 40 MG PO (20:24)
--- NOTE | 2023-12-02 20:54 | PTCARENOTE ---
Assumed care of Pt from previous RN. Preformed [facility]. Pt scored a 1 for sensation loss in right hand pointer finger. Pt AAO, making needs known. Call light in reach.
[2023-12-02 21:24] LABS: Glucose - Point of Care 140 mg/dl (70-99)
[2023-12-03] VITALS (28 sets, daily range): BP systolic 137–203; BP diastolic 77–140; BMI 25.8
[2023-12-03 07:47] LABS: Glucose - Point of Care 102 mg/dl (70-99)
[2023-12-03] MEDS: COREG 6.25 MG PO ×2 (08:21→20:16)
[2023-12-03] MEDS: LIPITOR 20 MG PO (08:21)
[2023-12-03] MEDS: LOW STRENGTH ASPIRIN 81 MG PO (08:22)
[2023-12-03] MEDS: MIRALAX 17 GRAMS PO (08:22)
[2023-12-03] MEDS: NOVOLOG FLEXPEN-LOW RESISTANCE SC ×3 (08:22→17:43)
[2023-12-03] MEDS: PROTONIX 40 MG PO ×2 (08:22→20:19)
--- NOTE | 2023-12-03 10:44 | W.PN.HOSP.TC ---
Addendum entered and electronically signed by Nikita Campbell MD 12/03/23 16:34:
Patient seen and examined
Discussed with resident
Agree with assessment and plan
Impression/plan:
Acute hypoxic respiratory failure due to combination of bilateral pneumonia, possibly aspiration in the settings of new CVA as well as volume overload in patient with DAMARI on CKD stage IV
New diagnosis of paroxysmal A-fib
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
Respiratory status improved with dialysis volume management
Weaned off to room air oxygen.
HD as per schedule with plan to transition to outpatient dialysis center.
Completed course of antibiotics
Tolerates physical activity close to baseline
Plan to discharge home on 12/03
Original Note:
Today's Communication/Plan
-
- Hemodialysis today.
- Anticipated discharge tomorrow.
Assessment / Plan
Assessment / Plan
Impression:
Acute hypoxemic respiratory failure
Likely secondary to volume overload with progressive renal disease, versus pneumonia.
Bilateral bacterial pneumonia suspected.
Acute kidney injury on chronic kidney disease requiring hemodialysis initiation over this admission
Increased anion gap metabolic acidosis
Atrial fibrillation with rapid ventricular response, new onset
Failure to thrive
Right upper extremity distal paresthesia
Conditions prior to admission:
CKD stage IV.
Anemia of chronic disease/CKD
Essential hypertension
Dyslipidemia
Type 2 diabetes
Plan
Acute hypoxic respiratory failure -likely multifactorial etiology including renal failure induced pulmonary edema, possible pneumonia, etc.
Remains with higher oxygen requirements
Repeat chest x-ray 11/26 with persistent left lower lobe consolidation
Attempt to wean off oxygen as tolerates
Sepsis -possibly due to pneumonia present on admission now resolved. CT scan of the chest 11/23: Consolidative parenchymal opacity involving most of the left lower lobe, compatible with consolidative pneumonia. There is also patchy groundglass
parenchymal opacity within the posterior aspect of the adjacent left upper lobe and the lingula, compatible with pneumonia but less consolidative.
Hemodynamically stable. No fevers at home but did have chills. Denies abdominal pain. Urinalysis without significant pyuria. COVID-19 negative, influenza negative. Blood cultures negative so far. Will change antibiotics to ceftriaxone and
doxycycline to cover community-acquired pneumonia. Follow-up imaging with initiation of hemodialysis.
finished abx
DAMARI on CKD 4 -suspect progression of renal failure and likely approaching ESRD. Nongap metabolic acidosis noted. Oliguric. Continue sodium bicarb.
Plan is for hemodialysis initiation.
Escalera catheter inserted. Bladder scan was 237 cc prior to insertion.
Plan is for inpatient hemodialysis for the next few days monitoring urine output and recovery of renal function with hope is to come off dialysis prior to discharge.
Tunneled catheter placement 12-02-23; dialysis today.
Atrial fibrillation with rapid ventricular response
Hemodynamically stable.
Echocardiogram 11/24 with mild left ventricular dilation with severe left ventricular hypertrophy, mild global hypokinesis and mildly reduced left ventricular systolic function with LVEF of 40%. Severe left atrial dilation. No evidence of pulmonary
hypertension.
Transitioned off IV Cardizem drip to Coreg at increased dose
Cardiology consultation appreciated
CHADSVASC2 5 (CHF, hypertension, diabetes, age).
Initiated on Xarelto on 11/24.
Developed dark heme positive stools on 11/25.
Hemoglobin stable.
Xarelto placed on hold on 11/26
Discussed AC with patient and he is refusing anticoagulation. he understands risk of another CVA without being on AC and he is ok with it.
Acute CVA
Patient complains of persistent initiated prior to this admission right arm weakness and paresthesia
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
Given presentation this is less likely embolic CVA, although patient with newly diagnosed paroxysmal atrial fibrillation
Discussed with neurology.
Additional brain imaging including MRI not required
Agree with carotid ultrasound to evaluate for atheroembolic risk.
Patient was initiated on Xarelto for new diagnosis of atrial fibrillation, although developed melanotic stool. Xarelto has been discontinued
Will start aspirin
Speech and swallow patient with no overt aspiration
Blind MoCA score 05/15 (normal 19)
Chronic normocytic anemia -follow hemoglobin
Dark heme positive stool while on Xarelto
Xarelto discontinued
Hemoglobin remained stable with no evidence of brisk blood loss
Patient reports no chronic gastrointestinal issues including negative history of PUD
Colonoscopy about 3 years ago with no abnormalities.
Given new A-fib, acute CVA, and patient considering stroke prevention including anticoagulation, consult gastroenterology with consideration of endoscopic evaluation inpatient versus outpatient prior to resumption of anticoagulation
Discussed AC with patient and he is refusing anticoagulation. he understands risk of another CVA without being on AC and he is ok with
Thrombocytopenia -follow daily
Essential HTN -stable.
DM2 with hyperglycemia -hemoglobin A1c 5.5. Continue preadmission regimen including Lantus 4 units. Continue serial Accu-Cheks and low-dose basal bolus protocol.
Hyperlipidemia -on Zocor.
Full code
Anticipated Discharge: Within 24 hours
Subjective/Interval History
-
Date of Service: December 03, 2023
Objective Data
-
Labs:
Laboratory Results
12/03/23
07:00
Hgb Pending
Hct Pending
Sodium Pending
Potassium Pending
Chloride Pending
Carbon Dioxide Pending
BUN Pending
Creatinine Pending
Glucose Pending
Calcium Pending
Vital Signs:
Vital Signs
Temp Pulse Resp BP Pulse Ox
98.4 F 67 19 161/84 98
12/03/23 07:15 12/03/23 06:34 12/03/23 06:34 12/03/23 06:34 12/02/23 18:40
I&O
12/02/23 12/03/23 12/04/23
06:59 06:59 06:59
Intake Total 980 / 980 120 / 120
Output Total 575 / 575 700 / 700 100 / 100
Balance 405 / 405 -580 / -580 -100 / -100
Review of Systems
-
History Source: Patient
Constitutional: Reports No Symptoms
EENT: Reports No Symptoms Reported
Respiratory: Reports No Symptoms
Cardiac: Reports No Symptoms
Abdomen/GI: Reports No Symptoms
Genitourinary: Reports No Symptoms
Musculoskeletal: Reports No Symptoms
Skin: Reports No Symptoms
Neuro: Reports No Symptoms
Endocrine: Reports No Symptoms
Hematologic / Lymphatic: Reports No Symptoms
Allergy / Immunology: Reports No Symptoms
Physical Exam
-
General: Well Developed and No Apparent Distress
HEENT: Normocephalic, Atraumatic and Moist Mucous Membranes
Respiratory: Clear to Auscultation
Cardiac: Regular Rhythm and S1/S2; Negative Murmur, Rub or Gallop
GI: Soft, Nontender, Nondistended and Normal Bowel Sounds; Negative Organomegaly
Rectal: Deferred by Provider
Musculoskeletal: No Clubbing, No Cyanosis and No Edema
Skin: Negative Rash
Neuro: Awake, Alert, Oriented, AO x 3 and Nonfocal/Grossly Intact
[2023-12-03 12:21] LABS: Glucose - Point of Care 135 mg/dl (70-99)
[2023-12-03 13:42] LABS: Hematocrit 26.7 % (39.0-52.0); Hemoglobin 8.6 g/dL (13.0-18.0)
--- NOTE | 2023-12-03 13:43 | W.PN.NEPH.HD ---
Assessment
-
Patient seen on dialysis
Systolic blood pressure stable at current UF
Patient now with tunneled catheter
Likely for discharge tomorrow
Will do short dialysis treatment tomorrow as his next dialysis treatment will be at [facility] on Saturday
Progress Note - Hemodialysis
-
Date of Service: December 03, 2023
Duration: 30 minutes and 3 hours
Potassium Bath: 3
Calcium Bath: 2.5
Opti-Dialyzer: 160
Ultrafiltration: Other (1.5kg)
Blood Flow: 400
Dialysate Flow: 600
Heparin: none
EPO: 10K
[2023-12-03 14:01] LABS: Blood Urea Nitrogen 63 mg/dl (9-20); Calcium 8.6 mg/dl (8.4-10.2); Carbon Dioxide 26 mmol/L (22-30); Chloride 101 mmol/L (98-107); Estimated Creatinine Clearance 12 ml/min; Glucose 114 mg/dl (70-99); Potassium 4.1 mmol/L (3.5-5.1); Sodium 139 mmol/L (135-145); eGFR 10.79
[2023-12-03] MEDS: RETACRIT 10000 UNITS IV (15:48)
[2023-12-03] MEDS: HEPARIN 4300 UNITS INTRACATH (17:13)
[2023-12-03 17:34] LABS: Glucose - Point of Care 103 mg/dl (70-99)
[2023-12-03] MEDS: LANTUS 0.0400000000000000008 UNITS SC (17:44)
--- NOTE | 2023-12-03 18:41 | PTCARENOTE ---
HD treatment completed. Tolerated well. Accu checks W/in normal- Lantus given at dinner time as ordered. Stroke packet provided and reviewed with verbal understanding. Appetite good. Oliguric.
[2023-12-03 21:44] LABS: Glucose - Point of Care 167 mg/dl (70-99)
[2023-12-04 00:10] VITALS: BP 116/60
[2023-12-04 02:00] VITALS: BP 135/64
[2023-12-04 04:00] VITALS: BP 142/75
[2023-12-04 05:04] LABS: Hematocrit 25.4 % (39.0-52.0); Hemoglobin 8.4 g/dL (13.0-18.0); Mean Corp Hgb Conc. 33.1 g/dL (33.0-37.0); Mean Corpuscular Hgb 29.1 pg (27.0-31.0); Mean Corpuscular Volume 87.9 fL (80.0-94.0); Mean Platelet Volume 10.7 fL (7.4-10.4); Platelet Count 205 10^3/uL (130-400); Red Blood Cell Count 2.89 10^6/uL (4.70-6.10); Red Cell Dist. Width 12.6 % (11.5-14.5); White Blood Cell Count 8.8 10^3/uL (4.8-10.8)
[2023-12-04 05:32] LABS: Blood Urea Nitrogen 37 mg/dl (9-20); Calcium 8.6 mg/dl (8.4-10.2); Carbon Dioxide 27 mmol/L (22-30); Chloride 99 mmol/L (98-107); Estimated Creatinine Clearance 18 ml/min; Glucose 105 mg/dl (70-99); Potassium 4.2 mmol/L (3.5-5.1); Sodium 137 mmol/L (135-145); eGFR 16.23
[2023-12-04 06:00] VITALS: BMI 25.2
[2023-12-04 09:40] LABS: Glucose - Point of Care 94 mg/dl (70-99)
[2023-12-04] MEDS: NOVOLOG FLEXPEN-LOW RESISTANCE SC ×2 (10:11→11:13)
--- NOTE | 2023-12-04 10:20 | W.PN.NEPH.HD ---
Assessment
-
pt seen during HD
vitals stable
for d/c today
HD unit [facility]
tunneled catheter function well
Progress Note - Hemodialysis
-
Date of Service: December 04, 2023
Duration: 30 minutes and 2 hours
Potassium Bath: 3
Calcium Bath: 2.5
Opti-Dialyzer: 160
Ultrafiltration: Other (1kg)
Blood Flow: 400
Dialysate Flow: 600
Heparin: no
EPO: no
[2023-12-04 10:58] LABS: Glucose - Point of Care 86 mg/dl (70-99)
[2023-12-04] MEDS: LOW STRENGTH ASPIRIN 81 MG PO (11:07)
[2023-12-04] MEDS: LIPITOR 20 MG PO (11:07)
[2023-12-04] MEDS: PROTONIX 40 MG PO (11:07)
[2023-12-04] MEDS: COREG 6.25 MG PO (11:07)
[2023-12-04] MEDS: MIRALAX PO (11:08)
[2023-12-04] MEDS: ROCALTROL 0.25 MCG PO (11:11)
--- NOTE | 2023-12-04 11:35 | W.PN.HOSP.TC ---
Addendum entered and electronically signed by Nikita Campbell MD 12/04/23 16:55:
Patient seen and examined
Discussed with resident
Agree with assessment and plan
Impression/plan:
Acute hypoxic respiratory failure due to combination of bilateral pneumonia, possibly aspiration in the settings of new CVA as well as volume overload in patient with DAMARI on CKD stage IV
New diagnosis of paroxysmal A-fib
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
Respiratory status improved with dialysis volume management
Weaned off to room air oxygen.
HD as per schedule with plan to transition to outpatient dialysis center.
Completed course of antibiotics
Tolerates physical activity close to baseline
Outpatient HD placement schedule confirmed
Stable for discharge.
Original Note:
Today's Communication/Plan
-
- Hemodialysis in the morning.
- Anticipated discharge today.
Assessment / Plan
Assessment / Plan
Impression:
Acute hypoxemic respiratory failure
Likely secondary to volume overload with progressive renal disease, versus pneumonia.
Bilateral bacterial pneumonia suspected.
Acute kidney injury on chronic kidney disease requiring hemodialysis initiation over this admission
Increased anion gap metabolic acidosis
Atrial fibrillation with rapid ventricular response, new onset
Failure to thrive
Right upper extremity distal paresthesia
Conditions prior to admission:
CKD stage IV.
Anemia of chronic disease/CKD
Essential hypertension
Dyslipidemia
Type 2 diabetes
Plan
Acute hypoxic respiratory failure -likely multifactorial etiology including renal failure induced pulmonary edema, possible pneumonia, etc.
Repeat chest x-ray 11/26 with persistent left lower lobe consolidation
Weaned off oxygen completely
Sepsis -possibly due to pneumonia present on admission now resolved. CT scan of the chest 11/23: Consolidative parenchymal opacity involving most of the left lower lobe, compatible with consolidative pneumonia. There is also patchy groundglass
parenchymal opacity within the posterior aspect of the adjacent left upper lobe and the lingula, compatible with pneumonia but less consolidative.
Hemodynamically stable. No fevers at home but did have chills. Denies abdominal pain. Urinalysis without significant pyuria. COVID-19 negative, influenza negative. Blood cultures negative so far. Will change antibiotics to ceftriaxone and
doxycycline to cover community-acquired pneumonia. Follow-up imaging with initiation of hemodialysis.
finished abx
DAMARI on CKD 4 -suspect progression of renal failure and likely approaching ESRD. Nongap metabolic acidosis noted. Oliguric. Continue sodium bicarb.
Plan is for hemodialysis initiation.
Escalera catheter inserted. Bladder scan was 237 cc prior to insertion.
Plan is for inpatient hemodialysis for the next few days monitoring urine output and recovery of renal function with hope is to come off dialysis prior to discharge.
Tunneled catheter placement 12-02-23; dialysis today.
Atrial fibrillation with rapid ventricular response
Hemodynamically stable.
Echocardiogram 11/24 with mild left ventricular dilation with severe left ventricular hypertrophy, mild global hypokinesis and mildly reduced left ventricular systolic function with LVEF of 40%. Severe left atrial dilation. No evidence of pulmonary
hypertension.
Transitioned off IV Cardizem drip to Coreg at increased dose
Cardiology consultation appreciated
CHADSVASC2 5 (CHF, hypertension, diabetes, age).
Initiated on Xarelto on 11/24.
Developed dark heme positive stools on 11/25.
Hemoglobin stable.
Xarelto placed on hold on 11/26
Discussed AC with patient and he is refusing anticoagulation. he understands risk of another CVA without being on AC and he is ok with it.
Acute CVA
Patient complains of persistent initiated prior to this admission right arm weakness and paresthesia
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
Given presentation this is less likely embolic CVA, although patient with newly diagnosed paroxysmal atrial fibrillation
Discussed with neurology.
Additional brain imaging including MRI not required
Agree with carotid ultrasound to evaluate for atheroembolic risk.
Patient was initiated on Xarelto for new diagnosis of atrial fibrillation, although developed melanotic stool. Xarelto has been discontinued
Will start aspirin
Speech and swallow patient with no overt aspiration
Blind MoCA score 05/15 (normal 19)
Chronic normocytic anemia -follow hemoglobin
Dark heme positive stool while on Xarelto
Xarelto discontinued
Hemoglobin remained stable with no evidence of brisk blood loss
Patient reports no chronic gastrointestinal issues including negative history of PUD
Colonoscopy about 3 years ago with no abnormalities.
Given new A-fib, acute CVA, and patient considering stroke prevention including anticoagulation, consult gastroenterology with consideration of endoscopic evaluation inpatient versus outpatient prior to resumption of anticoagulation
Discussed AC with patient and he is refusing anticoagulation. he understands risk of another CVA without being on AC and he is ok with
Thrombocytopenia -follow daily
Essential HTN -stable.
DM2 with hyperglycemia -hemoglobin A1c 5.5. Continue preadmission regimen including Lantus 4 units. Continue serial Accu-Cheks and low-dose basal bolus protocol.
Hyperlipidemia -on Zocor.
Full code
Anticipated Discharge: Today
Subjective/Interval History
-
Date of Service: December 04, 2023
Objective Data
-
Labs:
Laboratory Results
12/04/23
04:48
WBC 8.8
Hgb 8.4 L
Hct 25.4 L
Plt Count 205
Sodium 137
Potassium 4.2
Chloride 99
Carbon Dioxide 27
BUN 37 H
Creatinine 3.7 H
Glucose 105 H
Calcium 8.6
Vital Signs:
Vital Signs
Temp Pulse Resp BP Pulse Ox
98.4 F 65 19 142/75 98
12/04/23 11:00 12/04/23 04:00 12/04/23 04:00 12/04/23 04:00 12/04/23 01:06
I&O
12/03/23 12/04/23 12/05/23
06:59 06:59 06:59
Intake Total 120 / 120 240 / 240
Output Total 700 / 700 400 / 400
Balance -580 / -580 -160 / -160
Review of Systems
-
History Source: Patient
Constitutional: Reports No Symptoms
EENT: Reports No Symptoms Reported
Respiratory: Reports No Symptoms
Cardiac: Reports No Symptoms
Abdomen/GI: Reports No Symptoms
Genitourinary: Reports No Symptoms
Musculoskeletal: Reports No Symptoms
Skin: Reports No Symptoms
Neuro: Reports No Symptoms
Endocrine: Reports No Symptoms
Hematologic / Lymphatic: Reports No Symptoms
Allergy / Immunology: Reports No Symptoms
Physical Exam
-
General: Well Developed and No Apparent Distress
HEENT: Normocephalic, Atraumatic and Moist Mucous Membranes
Respiratory: Clear to Auscultation
Cardiac: Regular Rhythm and S1/S2; Negative Murmur, Rub or Gallop
GI: Soft, Nontender, Nondistended and Normal Bowel Sounds; Negative Organomegaly
Rectal: Deferred by Provider
Musculoskeletal: No Clubbing, No Cyanosis and No Edema
Skin: Negative Rash
Neuro: Awake, Alert, Oriented, AO x 3 and Nonfocal/Grossly Intact
[2023-12-04 12:11] LABS: Glucose - Point of Care 139 mg/dl (70-99)
--- NOTE | 2023-12-04 12:16 | VNURNOTE ---
Home Health Liaison met with patient at 1200 to discuss [facility] nurse/therapy, visits, schedule and homebound status. Patient is agreeable and understands that visits at home will be 2-3 x per week to assess and teach medical management.
[facility] brochure provided with contact information. Patient is aware that [facility] will contact him for start of care in 1-2 days after discharge from .
[facility] referral completed in [facility].
--- NOTE | 2023-12-04 12:19 | CM ---
Patient with Dx Acute hypoxemic respiratory failure, sepsis, DAMARI on CKD 4. New HD. Room air. PT/OT recommend HH.
[phone] to start at [facility] [place] 12/05. She sent final Schedule Letter confirming the same schedule MWF 5:50am.
Spoke with [facility]; she is waiting for Dr Gama to clear the patient financially so they can accept.
Request to Dr Ni to assist in confirming clearance with [facility] ---> she confirms patient is cleared to start there.
[facility] to start there.
Met with patient and spoke with Katie by phone; both agree to d/c home today. IMM completed. will provide transport home today.
Message to Melissa PT to issue RW.
Plan home 12/03 with Outpatient [facility], RW, [facility], with .
--- NOTE | 2023-12-04 14:09 | W.DCSUMMARY ---
Documented by User: Quinn Handley MD, Resident 12/04/23 16:39
Discharge Summary
Discharge Data
Date of Admission: 11/23/23
Date of Discharge: 12/04/23
-
Pending Results: No
Hospital Course
Primary discharge diagnosis
- Acute kidney injury on chronic kidney disease, stage IV
Secondary discharge diagnoses
- Acute hypoxemic respiratory failure
- Sepsis
- Acute cerebrovascular accident
- Uremia
- Community-acquired pneumonia
- Cardiomyopathy
- Atrial fibrillation with rapid ventricular response
- Normocytic anemia
- Thrombocytopenia
- Hypertension
- Hyperlipidemia
- Type II diabetes mellitus
Hospital course
Paul Hernández, age 78, presented to the emergency on 11-22-23 with decreased appetite and worsening weakness over the past 2 days. His creatinine was found to be 6.5, up from 3 a month ago (per patient). DAMARI with symptomatic uremia of unclear
etiology. He received IV fluids and sodium bicarbonate, and a Escalera was placed. He was eventually initiated on hemodialysis, and tolerated it well. He was found to have community-acquired pneumonia and clinical sepsis on presentation; responded well
to antibiotics.
He developed atrial fibrillation with rapid ventricular response and was started on rivaroxaban; this was discontinued when he developed black stools. Subsequently, he complained of right forearm and hand paresthesia along with decreased strength in
the right hand. CT head noncontrast showed a new acute appearing left basal ganglia infarction; aspirin was resumed. He refused further anticoagulation, understanding risks of future CVAs. His respiratory status improved through the stay with
hemodialysis and antibiotics. At the time of his discharge, his blood work and vitals had remained stable. He was feeling okay, and however his neurologic deficits had persisted. [facility]
Discharge Plan
-
Patient Disposition: Home with Home Care
Discharge Diagnosis/Procedures: Acute kidney injury on chronic kidney disease, stage IV
Condition: Fair
Diet: As tolerated
Activity: As tolerated
Driving Restrictions: As prior to admission
Blood Work: CBC and BMP in 1 week
Other Services: VN
Activity Restrictions/Additional Instructions:
Do not get Dialysis access in neck wet- keep clean and dry. Dialysis nurses / VN will change dressings.
Referrals:
Lianna Hurley MD [Family Provider] -
Prescriptions:
Continued
latanoprost 0.005 % Drops
1 drp BOTH EYES HS
sodium bicarbonate 650 mg Tablet
1,300 mg PO BID
calcitriol 0.25 mcg Capsule
0.25 mcg PO MOWEFR
insulin glargine [Lantus Solostar U-100 Insulin] 100 unit/mL (3 mL) Insulin Pen
4 unit SC QPM
carvedilol [Coreg] 25 mg Tablet
25 mg PO BID
aspirin 81 mg Tablet,Delayed Release (Dr/Ec)
81 mg PO DAILY
simvastatin [Zocor] 40 mg Tablet
40 mg PO DAILY
Held
nifedipine 90 mg tablet extended release 24hr
90 mg PO DAILY
Hold Instructions: hold until follow-up with PCP/neohrology
Discharge Orders:
Discharge Patient (As Directed); Ordered 12/04/23
Ordered By: Quinn Handley
Discharge Date and Time
Discharge Date/Time: 12/04/23 16:02
Print Language: HUNGARIAN

Documented by User: Nikita Campbell MD 12/04/23 16:53
Discharge Summary
Discharge Data
Date of Admission: 11/23/23
Date of Discharge: 12/04/23
Discharge Plan
-
Patient Disposition: Home with Home Care
Discharge Diagnosis/Procedures: Acute kidney injury on chronic kidney disease, stage IV
Condition: Fair
Diet: As tolerated
Activity: As tolerated
Driving Restrictions: As prior to admission
Blood Work: CBC and BMP in 1 week
Other Services: VN
Activity Restrictions/Additional Instructions:
Do not get Dialysis access in neck wet- keep clean and dry. Dialysis nurses / VN will change dressings.
Referrals:
Lianna Hurley MD [Family Provider] -
Prescriptions:
Continued
latanoprost 0.005 % Drops
1 drp BOTH EYES HS
sodium bicarbonate 650 mg Tablet
1,300 mg PO BID
calcitriol 0.25 mcg Capsule
0.25 mcg PO MOWEFR
insulin glargine [Lantus Solostar U-100 Insulin] 100 unit/mL (3 mL) Insulin Pen
4 unit SC QPM
carvedilol [Coreg] 25 mg Tablet
25 mg PO BID
aspirin 81 mg Tablet,Delayed Release (Dr/Ec)
81 mg PO DAILY
simvastatin [Zocor] 40 mg Tablet
40 mg PO DAILY
Held
nifedipine 90 mg tablet extended release 24hr
90 mg PO DAILY
Hold Instructions: hold until follow-up with PCP/neohrology
Discharge Orders:
Discharge Patient (As Directed); Ordered 12/04/23
Ordered By: Quinn Handley
Discharge Date and Time
Discharge Date/Time: 12/04/23 16:02
Print Language: HUNGARIAN
[2023-12-04] MEDS: PREVNAR 20 0.5 ML IM (15:07)
[2023-12-04 15:42] VITALS: BP 139/92
== END 2023-12-04 16:02 | disposition home health service (06) | DRG 871 ==
LOC: IMU 17:04
PROVIDERS: Hospitalist; Internal Medicine; Nurse Practitioner; Nurse Practitioner Adult Health; Nurse Practitioner Family; Nurse Practitioner Gerontology; Radiology Vascular & Interventional Radiology; Specialist; Student in an Organized Health Care Education/Training Program; ADMITTING PHYSICIAN Hospitalist; ATTENDING PHYSICIAN Internal Medicine; CONSULT PHYSICIAN Internal Medicine Cardiovascular Disease; CONSULT PHYSICIAN Internal Medicine Critical Care Medicine; CONSULT PHYSICIAN Radiology Diagnostic Radiology; CONSULT PHYSICIAN Student in an Organized Health Care Education/Training Program; EMERGENCY PHYSICIAN Emergency Medicine; FAMILY PHYSICIAN Internal Medicine
PROC: 5A0945A Assistance with Respiratory Ventilation, 24-96 Consecutive Hours, High Flow/Velocity Cannula (ICD-10-PCS; 2023-11-23)
PROC: 05HM33Z Insertion of Infusion Device into Right Internal Jugular Vein, Percutaneous Approach (ICD-10-PCS; 2023-11-24)
PROC: 5A1D70Z Performance of Urinary Filtration, Intermittent, Less than 6 Hours Per Day (ICD-10-PCS; 2023-11-24)
PROC: 0JH63XZ Insertion of Tunneled Vascular Access Device into Chest Subcutaneous Tissue and Fascia, Percutaneous Approach (ICD-10-PCS; 2023-12-02)
PROC: 02H633Z Insertion of Infusion Device into Right Atrium, Percutaneous Approach (ICD-10-PCS; 2023-12-02)
PROC: B5181ZA Fluoroscopy of Superior Vena Cava using Low Osmolar Contrast, Guidance (ICD-10-PCS; 2023-12-02)
DX: A41.9 Sepsis, unspecified organism (principal); I63.81 Other cerebral infarction due to occlusion or stenosis of small artery; J18.9 Pneumonia, unspecified organism; J96.01 Acute respiratory failure with hypoxia; N17.0 Acute kidney failure with tubular necrosis; N18.4 Chronic kidney disease, stage 4 (severe); E87.20 Acidosis, unspecified; I42.9 Cardiomyopathy, unspecified; K92.1 Melena; R62.7 Adult failure to thrive; I48.0 Paroxysmal atrial fibrillation; R74.01 Elevation of levels of liver transaminase levels; E78.00 Pure hypercholesterolemia, unspecified; E11.22 Type 2 diabetes mellitus with diabetic chronic kidney disease; I12.9 Hypertensive chronic kidney disease with stage 1 through stage 4 chronic kidney disease, or unspecified chronic kidney disease; R25.1 Tremor, unspecified; E11.65 Type 2 diabetes mellitus with hyperglycemia; D63.1 Anemia in chronic kidney disease; D50.0 Iron deficiency anemia secondary to blood loss (chronic); D69.6 Thrombocytopenia, unspecified; Z79.82 Long term (current) use of aspirin; Z79.4 Long term (current) use of insulin
CPT/HCPCS: 36556; 36558; 70450; 71045; 71046; 71250; 76770; 76937; 77001; 80048; 80053; 81003; 81015; 82248; 82570; 82728; 82962; 83036; 83540; 83550; 83605; 84156; 84300; 84443; 85014; 85018; 85025; 85027; 86706; 87040; 87070; 87340; 87502; 87811; 90677; 92523; 92610; 93005; 93306; 93880; 94640; 96360; 97116; 97162; 97167; 97530; 99152; 99153; 99285; C1750; G0009; G0257; P9047; Q5106

== ENCOUNTER 2024-04-28 07:29 | Day surgery (SDC) | payer OTHER, SELFPAY ==
[2024-04-23 08:32] VITALS: BMI 27.3
[2024-04-23 09:06] LABS: % Basophils 0.8 % (0-2); % Eosinophils 3.3 % (0-6); % Immature Granulocytes 0.4 % (0-0.5); % Lymphocytes 29.3 % (20.5-51.1); % Monocytes 10.7 % (1.7-9.3); % Neutrophils 55.5 % (42.2-75.2); Absolute Eosinophils 0.2 10^3/uL (0-0.7); Absolute Lymphocytes 1.5 10^3/uL (1.2-3.4); Absolute Monocytes 0.6 10^3/uL (0.1-0.6); Absolute Neutrophils 2.9 10^3/uL (1.4-6.5); Hematocrit 36.5 % (39.0-52.0); Mean Corp Hgb Conc. 32.9 g/dL (33.0-37.0); Mean Corpuscular Hgb 29.9 pg (27.0-31.0); Mean Corpuscular Volume 90.8 fL (80.0-94.0); Mean Platelet Volume 10.8 fL (7.4-10.4); Nucleated Red Blood Cells % 0 % (-); Platelet Count 141 10^3/uL (130-400); Red Blood Cell Count 4.02 10^6/uL (4.70-6.10); Red Cell Dist. Width 15.6 % (11.5-14.5); White Blood Cell Count 5.2 10^3/uL (4.8-10.8)
[2024-04-23 09:13] LABS: INR 1.17
[2024-04-23 09:14] LABS: APTT 37.8 Sec (23.4-35.0)
[2024-04-23 09:27] LABS: Blood Urea Nitrogen 51 mg/dl (9-20); Calcium 9.4 mg/dl (8.4-10.2); Carbon Dioxide 31 mmol/L (22-30); Chloride 94 mmol/L (98-107); Estimated Creatinine Clearance 8 ml/min; Glucose 90 mg/dl (70-99); Potassium 4.8 mmol/L (3.5-5.1); Sodium 142 mmol/L (135-145); eGFR 7.18
[2024-04-28] VITALS (10 sets, daily range): BP systolic 90–133; BP diastolic 63–78; BMI 24.5
[2024-04-28 08:08] LABS: INR 1.14; PT 14.4 Sec (11.4-14.6)
[2024-04-28 08:09] LABS: APTT 37.5 Sec (23.4-35.0)
[2024-04-28] MEDS: PERIDEX 0.12% ORAL RINSE 15 ML PO (08:31)
[2024-04-28] MEDS: BACTROBAN NASAL 1 GRAM NASAL (08:31)
[2024-04-28] MEDS: NSS 500 IV (08:31)
[2024-04-28 08:42] LABS: Hematocrit 36.8 % (39.0-52.0); Mean Corp Hgb Conc. 32.6 g/dL (33.0-37.0); Mean Corpuscular Hgb 29.4 pg (27.0-31.0); Mean Corpuscular Volume 90.2 fL (80.0-94.0); Mean Platelet Volume 10.8 fL (7.4-10.4); Platelet Count 114 10^3/uL (130-400); Red Blood Cell Count 4.08 10^6/uL (4.70-6.10); Red Cell Dist. Width 15.4 % (11.5-14.5)
[2024-04-28 09:00] LABS: Blood Urea Nitrogen 60 mg/dl (9-20); Calcium 9.5 mg/dl (8.4-10.2); Carbon Dioxide 32 mmol/L (22-30); Chloride 97 mmol/L (98-107); Estimated Creatinine Clearance 8 ml/min; Glucose 89 mg/dl (70-99); Potassium 5.4 mmol/L (3.5-5.1); Sodium 144 mmol/L (135-145); eGFR 6.63
--- NOTE | 2024-04-28 09:15 | W.SUR.PREOP ---
Pre-Operative Surgical Note
-
I have examined this patient prior to the performance of the scheduled procedure.
The patient's condition is unchanged from the time of the current History and
Physical and the patient is able to undergo the scheduled procedure.
--- NOTE | 2024-04-28 10:32 | OR.RPT ---
Operative Report
Operative Report
Date of Operation: 04/28/2024
Pre Op Diagnosis: End-stage renal disease requiring hemodialysis and in need of permanent hemodialysis access
Post Op Diagnosis: End-stage renal disease requiring hemodialysis and in need of permanent hemodialysis access
Procedure: Creation of left upper arm brachiobasilic arteriovenous fistula (first stage of a planned two-stage basilic vein transposition)
Surgeon: Ayaan Escalera III, MD
Nerve Specialist: Scout Salas MD PhD, PGY2
Anesthesia: General
Complications: None
Estimated Blood Loss: 20 cc
History and Indications for Procedure: 78-year-old male in need of permanent hemodialysis access
Procedure in Detail: Paul Hernández was correctly identified and placed supine on the operating table. After adequate induction of anesthesia the left arm was positioned, prepped and draped in the usual sterile fashion. Preoperative
antibiotics were administered. A timeout procedure was performed with the nursing and anesthesia staff confirming the patients identity as well as the nature and laterality of the procedure.
I performed intraoperative ultrasound on the veins of the left arm. I identified the upper arm basilic vein from the elbow to the axilla. The vein appeared to be of appropriate quality and caliber for fistula creation. The brachial artery was also
identified in the distal upper arm and proximal forearm. The appropriate site for the incision was then identified in the distal upper arm, just proximal to the elbow.
An incision was then made in the distal upper arm. Careful sharp dissection was performed and the basilic vein exposed. Branches of the vein were ligated between ties. The brachial artery was exposed with sharp dissection. Proximal and distal
control was obtained with vessel loops.
The distal end of the basilic vein was ligated with a tie. The vein was transected and flushed proximally with heparinized saline. The vein flushed easily and without resistance. The vessel loops on the artery were secured. An arteriotomy was made
with an 11-blade. This was extended just slightly proximally and distally with Ahn scissors. The proximal and distal artery was flushed with heparinized saline. The end of the vein was spatulated slightly. An end-to-side anastomosis was performed
from the end of the basilic vein to the brachial artery with a running 7-0 Prolene. At the completion of the anastomosis the proximal vessel loop was released first. After several heartbeats the distal brachial artery loop was released. The suture
line was closely inspected and hemostasis achieved. There was an excellent thrill in the vein. There was a good pulse in the brachial artery proximal and distal to the anastomosis.
The wound was irrigated with saline. Hemostasis was achieved in the wound bed. The wound was closed in multiple layers and skin glue was applied.
The patient tolerated the procedure well and was taken to the PACU in stable condition.
Attestation: I was present and responsible for the entire procedure
Signed:
Ayaan Escalera III, MD
[facility]
[phone] (cell)
--- NOTE | 2024-04-28 12:37 | W.IMMPOSTOP ---
Surgical Immed Post Op Note
-
Primary Surgeon: Dr. Ayaan Escalera III, MD
Assisting Surgeon: Scout Salas MD, PhD (PGY-2)
Pre-op Diagnosis: End stage renal disease requiring dialysis
Post-op Diagnosis: End stage renal disease requiring dialysis
Procedure Performed: LUE fistula (brachiobasilic)
Anesthesia Type: General
Specimen / Cultures: None
Estimated Blood Loss: Minimal
Complications: None
Operative Findings: The patient was brought to the OR and placed in the supine position. Ultrasound was used to perform vein mapping on the left upper extremity. The patient was prepped and draped in usual sterile fashion. Incision and
electrocautery dissection was performed to expose the basilic vein. Then proximal and distal control of the brachial artery was obtained with red vessel loops. The vein was ligated and transected. Arteriotomy was performed and and the vein was
anastomosed to the artery in end-to-side fashion using running 7-0 suture. At the completion of the anastomosis, hemoastasis was achieved. The wound bed was irrigated and closed with two layers of suture and skin glue on the surface. At the
completion of the case, there was an excellent palpable thrill and radial pulse in the LUE distally. The patient was transported to the PACU in stable condition.
== END 2024-04-28 12:30 | disposition home or self-care (01) ==
LOC: CATH 07:29
PROVIDERS: ATTENDING PHYSICIAN Surgery Vascular Surgery; FAMILY PHYSICIAN Internal Medicine; OTHER PHYSICIAN Internal Medicine
DX: I12.0 Hypertensive chronic kidney disease with stage 5 chronic kidney disease or end stage renal disease (principal); E11.22 Type 2 diabetes mellitus with diabetic chronic kidney disease; N18.6 End stage renal disease; Z99.2 Dependence on renal dialysis; E78.5 Hyperlipidemia, unspecified; I34.0 Nonrheumatic mitral (valve) insufficiency; Z79.4 Long term (current) use of insulin; Z79.82 Long term (current) use of aspirin
CPT/HCPCS: 36821; 36415; 80048; 85025; 85027; 85610; 85730; 93005

== ENCOUNTER → 2024-06-09 07:22 | Outpatient (REF) | payer OTHER, SELFPAY | LOC: RAD 07:22 | PROVIDERS: ATTENDING PHYSICIAN Physician Assistant | DX: I77.0 Arteriovenous fistula, acquired (principal) | CPT/HCPCS: 93990 ==

== ENCOUNTER → 2024-07-02 09:32 | Outpatient (REF) | payer OTHER, SELFPAY | LOC: HWRCS 09:32 | PROVIDERS: ATTENDING PHYSICIAN Internal Medicine; FAMILY PHYSICIAN Internal Medicine | DX: I42.9 Cardiomyopathy, unspecified (principal) | CPT/HCPCS: 93306 ==

== ENCOUNTER → 2024-07-16 16:04 | Outpatient (REF) | payer OTHER, SELFPAY | LOC: DHVS 16:04 | PROVIDERS: ATTENDING PHYSICIAN Surgery Vascular Surgery | DX: N18.6 End stage renal disease (principal) | CPT/HCPCS: 36415; 93985 ==

== ENCOUNTER → 2024-07-28 07:03 | Outpatient (REF) | payer OTHER, SELFPAY | LOC: HWRCS 07:03 | PROVIDERS: ATTENDING PHYSICIAN Internal Medicine; FAMILY PHYSICIAN Internal Medicine | DX: I42.9 Cardiomyopathy, unspecified (principal); I48.0 Paroxysmal atrial fibrillation | CPT/HCPCS: 78452; 93017; A9500; J2785 ==

== ENCOUNTER 2024-07-29 12:50 | Emergency (ER) | payer OTHER, SELFPAY ==
[2024-07-29 12:57] VITALS: BP 101/60
[2024-07-29 13:40] VITALS: BP 91/53
[2024-07-29 14:00] VITALS: BP 104/57
--- NOTE | 2024-07-29 14:22 | ED.GENMED ---
History of Present Illness
General
Chief Complaint: Dizziness
Source: patient
Exam Limitations: none
Time Seen by Provider: 07/29/24 14:01
History of Present Illness
History of Present Illness:
78-year-old male Saturday dialysis patient presents after lightheaded episode once completing dialysis this morning. His states that he slid out of the chair and he was staring off into the distance not responding for a brief
period of time. He then came to. There was lightheadedness prior to this episode. There is no chest pain. No shortness of breath. This has happened in the past. He just had a stress test yesterday which showed no findings. He is followed with
cardiology and nephrology through this hospital. He has no complaints currently
Past History
Past History
ED Past Medical History: None
ED Past Surgical History: None
Social History
Tobacco: Non-smoker
Family History
Family History: Unable to obtain
Phy Exam
Physical Exam
Physical Exam:
General: Well-appearing male no acute respiratory distress
HEENT: Normocephalic atraumatic
Heart: Regular rate and rhythm
Lungs: Clear no wheeze
Extremities: No cyanosis or edema
Course
Orders/Labs/Results
Orders:
Orders
07/29/24 12:58
ECG [Electrocardiogram (*1)] Urgent
Reason for Study: Vertigo / Dizzy
EKG- Treatment ONCE
07/29/24 14:21
Orthostatic VS- Treatment ONCE
07/29/24 14:27
Complete Blood Count/With Diff Urgent
Comprehensive Metabolic Panel Urgent
07/29/24 14:36
0.9% Sodium Chloride 500 ml [Nss] 500 ml IV BOLUS
Abnormal Lab Results
07/29/24
14:27
RBC 3.58 L 10^6/uL
(4.70-6.10)
Hgb 10.8 L g/dL
(13.0-18.0)
Hct 33.1 L %
(39.0-52.0)
MCHC 32.6 L g/dL
(33.0-37.0)
Plt Count 100 L 10^3/uL
(130-400)
MPV 11.4 H fL
(7.4-10.4)
Chloride 93 L mmol/L
(98-107)
Carbon Dioxide 31 H mmol/L
(22-30)
BUN 23 H mg/dl
(9-20)
Creatinine 4.8 H* mg/dL
(0.7-1.3)
Glucose 182 H mg/dl
(70-99)
07/29/24 14:27
07/29/24 14:27
Vital Signs
Initial and Last Documented VS:
Initial Vital Signs
Temp Resp Pulse Ox
97.7 F 20 93
07/29/24 12:52 07/29/24 12:52 07/29/24 12:52
Last Documented Vital Signs
Temp Pulse Resp BP Pulse Ox
97.7 F 77 16 124/60 93
07/29/24 12:52 07/29/24 16:00 07/29/24 16:03 07/29/24 15:21 07/29/24 12:52
MDM/Problems Addressed
Differential Diagnosis Includes:
Episode of weakness lightheadedness and possible near syncope versus syncope after dialysis. Question arrhythmia versus volume depletion versus vasovagal episode
Current blood pressure 104/7. Most recent blood pressure during dialysis was 90s over 50s as well. Has no complaints offer right now. Will check labs do orthostatics. EKG shows sinus rhythm without ischemic changes
*Critical Care Note
Total Time (30-74mins, 75-104mins- exclusive of procedures): Not Applicable
Update Note
Update Note:
Labs reviewed. No significant finding on workup. Orthostatics without any significant change. There are times when he is laying down that his blood pressure does drop below 100 into the low 90s. Patient concerned about this episodic drop in
blood pressure. Discussed with nephrology who saw the patient as well. Will add 5 mg of midodrine as needed for systolic blood pressure below 90. He will continue follow-up with nephrology. No indication for admission
ED Attending Note
-
Portions of this chart may have been created with voice recognition software.� Occasional wrong word or��sound alike� substitutions may have occurred due to the inherent limitations of voice recognition software.
Discharge Plan
Departure
Patient Disposition: Home (Routine Discharge)
Date of Disposition: 07/29/24
Time of Disposition: 17:12
Patient with high blood pressure during this ER visit?: No
Discharge Problem:
Syncope
Instructions: Syncope (fainting)
Prescriptions:
New
midodrine 5 mg tablet
5 mg PO TID PRN (Reason: see note) Qty: 20 0RF
Rx Instructions:
Use 5 mg as needed for systolic blood pressure below 90 mg up to 3 times a day
No Action
sodium bicarbonate 650 mg Tablet
1,300 mg PO BID
insulin glargine [Lantus Solostar U-100 Insulin] 100 unit/mL (3 mL) Insulin Pen
4 unit SC QPM
carvedilol [Coreg] 25 mg Tablet
25 mg PO BID
aspirin 81 mg Tablet,Delayed Release (Dr/Ec)
81 mg PO DAILY
sevelamer carbonate 800 mg Tablet
800 mg PO TID
calcitriol 0.5 mcg Capsule
0.5 mcg PO DAILY
cholecalciferol (vitamin D3) [Vitamin D3] 25 mcg (1,000 unit) Tablet
25 mcg PO DAILY
polyethylene glycol 3350 [Miralax] 17 gram Powder In Packet
17 g PO DAILYPRN PRN (Reason: constipation)
rosuvastatin [Crestor] 40 mg Tablet
40 mg PO QPM
Referrals:
Lianna Hurley MD [Family Provider] -
Activity Restrictions/Additional Instructions:
You may use midodrine as needed for systolic blood pressure lower than 90 mg. Please follow-up with nephrology as planned. Return if needed otherwise
Interventions
Interventions:
*Risk Screen - Suicide Last Done: 07/29/24 12:56
*General Assessment Last Done: 07/29/24 13:46
*Neglect/Abuse Screening Last Done: 07/29/24 13:46
*ED COVID-19 Vaccine History Last Done: 07/29/24 13:46
ED- Neurological Assessment Last Done: 07/29/24 13:46
ED Swallowing Screen Last Done: 07/29/24 13:49
Discharge Date and Time
Print Language: SYRIAN
[2024-07-29] MEDS: NSS 500 IV (14:40)
[2024-07-29 14:45] LABS: % Basophils 0.8 % (0-2); % Immature Granulocytes 0.2 % (0-0.5); % Lymphocytes 30.1 % (20.5-51.1); % Monocytes 8.3 % (1.7-9.3); % Neutrophils 55.6 % (42.2-75.2); Absolute Eosinophils 0.3 10^3/uL (0-0.7); Absolute Lymphocytes 1.6 10^3/uL (1.2-3.4); Absolute Monocytes 0.4 10^3/uL (0.1-0.6); Absolute Neutrophils 2.9 10^3/uL (1.4-6.5); Hematocrit 33.1 % (39.0-52.0); Hemoglobin 10.8 g/dL (13.0-18.0); Mean Corp Hgb Conc. 32.6 g/dL (33.0-37.0); Mean Corpuscular Hgb 30.2 pg (27.0-31.0); Mean Corpuscular Volume 92.5 fL (80.0-94.0); Mean Platelet Volume 11.4 fL (7.4-10.4); Nucleated Red Blood Cells % 0 % (-); Platelet Count 100 10^3/uL (130-400); Red Blood Cell Count 3.58 10^6/uL (4.70-6.10); Red Cell Dist. Width 12.9 % (11.5-14.5); White Blood Cell Count 5.2 10^3/uL (4.8-10.8)
[2024-07-29 14:50] LABS: ALT (SGPT) 21 U/L (0-50); AST (SGOT) 28 U/L (17-59); Albumin 4.6 g/dl (3.5-5.0); Alkaline Phosphatase 69 U/L (38-126); Blood Urea Nitrogen 23 mg/dl (9-20); Carbon Dioxide 31 mmol/L (22-30); Chloride 93 mmol/L (98-107); Glucose 182 mg/dl (70-99); Potassium 4.5 mmol/L (3.5-5.1); Sodium 136 mmol/L (135-145); Total Protein 7.2 g/dl (6.3-8.2); eGFR 11.87
[2024-07-29 15:21] VITALS: BP 124/60
[2024-07-29 15:23] VITALS: BP 106/65; BP 124/60; BP 94/55; PULSE 75; PULSE 78; PULSE 86
[2024-07-29 17:18] VITALS: BP 113/87
== END 2024-07-29 17:22 | disposition home or self-care (01) ==
LOC: EMR 12:50
PROVIDERS: Physician Assistant; EMERGENCY PHYSICIAN Emergency Medicine; FAMILY PHYSICIAN Internal Medicine
DX: R55 Syncope and collapse (principal); Z99.2 Dependence on renal dialysis
CPT/HCPCS: 99283; 96360; 80053; 85025; 93005

== ENCOUNTER 2024-08-04 10:25 | Day surgery (SDC) | payer OTHER, SELFPAY ==
[2024-08-04] VITALS (8 sets, daily range): BP systolic 100–123; BP diastolic 64–75; BMI 28.5
[2024-08-04 11:16] LABS: Hematocrit 32.7 % (39.0-52.0); Hemoglobin 10.6 g/dL (13.0-18.0); Mean Corp Hgb Conc. 32.4 g/dL (33.0-37.0); Mean Corpuscular Hgb 29.8 pg (27.0-31.0); Mean Corpuscular Volume 91.9 fL (80.0-94.0); Mean Platelet Volume 10.7 fL (7.4-10.4); Platelet Count 118 10^3/uL (130-400); Red Blood Cell Count 3.56 10^6/uL (4.70-6.10); White Blood Cell Count 6.5 10^3/uL (4.8-10.8)
[2024-08-04 11:26] LABS: APTT 36.9 Sec (23.4-35.0)
[2024-08-04 11:28] LABS: Blood Urea Nitrogen 46 mg/dl (9-20); Calcium 9.5 mg/dl (8.4-10.2); Carbon Dioxide 25 mmol/L (22-30); Chloride 102 mmol/L (98-107); Glucose 75 mg/dl (70-99); Potassium 5.8 mmol/L (3.5-5.1); Sodium 140 mmol/L (135-145); eGFR 6.34
[2024-08-04] MEDS: BACTROBAN NASAL 1 GRAM NASAL (12:08)
[2024-08-04] MEDS: PERIDEX 0.12% ORAL RINSE 15 ML PO (12:08)
[2024-08-04 12:24] LABS: Glucose - Point of Care 62 mg/dl (70-99)
[2024-08-04 12:44] LABS: Potassium 5.2 mmol/L (3.5-5.1)
--- NOTE | 2024-08-04 12:47 | PTCARENOTE ---
Pt's Potassium on labs 5.8 Flora Brown made aware, instructed RN to notify anesthesia. Dr Jesus made aware repeat postassium drawn and sent. Pt's accu check 62 Dr Jesus made aware. Per Dr await repeat postassium. Pt asymptomatic. Will continue
to monitor and notify when potassium back.
[2024-08-04] MEDS: DEXTROSE 50% SYRINGE 25 GRAMS IV (13:05)
[2024-08-04 13:50] LABS: Glucose - Point of Care 129 mg/dl (70-99)
--- NOTE | 2024-08-04 15:58 | W.[place]-PDMP ---
[place]-PD[place]
-
Checked the [place]- Prescription Drug Monitoring Program website, no red flags identified; safe to proceed with prescription.
[2024-08-04 16:04] LABS: Glucose - Point of Care 83 mg/dl (70-99)
[2024-08-04 17:40] LABS: Glucose - Point of Care 77 mg/dl (70-99)
--- NOTE | 2024-08-04 17:44 | OR.RPT ---
Operative Report
Operative Report
Date of Operation: 08/04/2024
Pre Op Diagnosis: Upper extremity brachiobasilic AV fistula (status post 1st stage of planned 2 stage basilic vein transposition)
Post Op Diagnosis: Upper extremity brachiobasilic AV fistula (status post 1st stage of planned 2 stage basilic vein transposition)
Procedure: Revision of LEFT upper extremity brachiobasilic AV fistula with transposition of the basilic vein (second stage BVT)
Surgeon: Ayaan Escalera III, MD
Plumbing Engineering Draftsperson: Rahul Page MD PGY1
Anesthesia: General
Complications: None
Estimated Blood Loss: 20 cc
History and Indications for Procedure: 78-year-old male status post first stage of a planned two-stage basilic vein transposition. He was brought to the operating room today for revision of the fistula with transposition of the basilic vein.
Procedure in Detail: Paul Hernández was correctly identified and placed supine on the operating table. After adequate induction of anesthesia the left arm was abducted 90 degrees. A timeout procedure was performed with the nursing and
anesthesia staff confirming the patient's identity and the nature and laterality of the procedure. The basilic vein was marked in the upper arm with ultrasound guidance. The arm was then circumferentially prepped and draped in the usual sterile
fashion. We made an incision over the medial upper arm. The entire basilic vein was dissected with careful sharp dissection. All branches were ligated and divided between ties and metal clips. The vein was good caliber along the entire course and
had an excellent thrill. Once the entire vein had been carefully dissected we then created a gentle curved tunnel lateral to the incision over the bicep with a large clamp. Proximal control was obtained on the vein with a vascular clamp. The vein
was marked and then transected near the arterial anastomosis. The vein was then brought through the tunnel carefully. The two ends of the vein were anastomosed to one another in an end-to-end fashion using a running 7-0 Prolene suture. At the
completion of the anastomosis the clamp was released and flow restored through the fistula. There was an excellent thrill in the tunnel. The suture line was inspected for hemostasis and this was achieved. The wound was irrigated with warm saline
solution. Hemostasis was achieved in the wound bed. The wound was then closed in multiple layers and skin glue was applied. The patient had an easily palpable thrill in the tunnel and a palpable radial pulse at the conclusion of the case.
Attestation: I was present and responsible for the entire procedure
Signed:
Ayaan Escalera III, MD
[facility] Vascular Surgery
[phone] (cell)
[2024-08-04] MEDS: DILAUDID 0.25 MG IV (18:05)
== END 2024-08-04 19:00 | disposition home or self-care (01) ==
LOC: CATH 10:25
PROVIDERS: ATTENDING PHYSICIAN Surgery Vascular Surgery; PRIMARYCARE PHYSICIAN Internal Medicine
DX: Z49.01 Encounter for fitting and adjustment of extracorporeal dialysis catheter (principal); E11.22 Type 2 diabetes mellitus with diabetic chronic kidney disease; I12.0 Hypertensive chronic kidney disease with stage 5 chronic kidney disease or end stage renal disease; N18.6 End stage renal disease; Z99.2 Dependence on renal dialysis; Z79.4 Long term (current) use of insulin; Z79.82 Long term (current) use of aspirin; Z79.899 Other long term (current) drug therapy
CPT/HCPCS: 36832; 80048; 82962; 84132; 85027; 85730

== ENCOUNTER → 2024-10-08 07:47 | Outpatient (REF) | payer OTHER, SELFPAY ==
[2024-10-08 08:08] VITALS: BP 131/80; BP_SYST 68
== END ==
LOC: RADI 07:47
PROVIDERS: ATTENDING PHYSICIAN Specialist
DX: Z49.01 Encounter for fitting and adjustment of extracorporeal dialysis catheter (principal); N18.6 End stage renal disease
CPT/HCPCS: 36589

== ENCOUNTER 2025-01-13 18:58 | Inpatient (IN) | payer OTHER, SELFPAY ==
[2025-01-13] VITALS (17 sets, daily range): BP systolic 105–160; BP diastolic 58–90; BMI 24.7
--- NOTE | 2025-01-13 11:12 | CON.VAS ---
Addendum entered and electronically signed by Ayaan Escalera III, MD 01/13/25 12:51:
This patient was seen and examined in collaboration with LANDON Kearney. I agree with the history and physical exam as well as the assessment and plan. I have the following additions:
Patient is well-known to me
Left upper extremity brachio basilic arteriovenous fistula
Reports prolonged bleeding at dialysis recently for 2 to 3 weeks
Could not access fistula at dialysis today
Duplex personally reviewed which shows thrombosed AV fistula
Planning for fistulogram with declot and additional endovascular intervention as necessary. Technical aspects of this procedure were discussed with him in detail. The benefits and rationale for this approach were discussed with him in detail.
Operative risks were discussed with him in detail including but not limited to bleeding, access site injury, infection, continued thrombosis of the fistula, distal embolization and the need for additional procedures. He expressed clear
understanding of our conversation and agrees to proceed with surgery as detailed above.
Signed:
Ayaan Escalera III, MD
Vascular Surgery
[facility]
Original Note:
Consultation
Consultation Request
Date/Time Consultation Performed: 01/13/25 1045
Requesting Provider: Jose Henriquez MD
Performing Provider: Flora Brown NP-C for Ayaan Escalera III
Reason for Consultation: Left upper extremity AV fistula suspected clot
Medical History
-
Chief Complaint: Left upper extremity nonfunctioning AV fistula
History of Present Illness:
This is 79-year-old male with significant past medical history for end-stage renal disease on HD, mitral regurgitation, hypertension, and dyslipidemia who presents to [facility] ED from his HD access center following inability to access AV fistula
left upper extremity. Patient indicates over the past roughly 2 to 3 weeks he has been experience prolonged bleeding from his left upper extremity AV fistula following his HD sessions. He indicates that during his past few sessions he was required
to sit for an additional hour waiting for complete hemostasis at AV fistula after HD. He presented today and was told they could not access unsuspected a clot, which prompted them to recommend seeking ED evaluation. Patient offers no other
complaints other than nonfunctioning left lower extremity fistula. He denies left hand coolness, pain, or paresthesia. Denies fever, chills, nausea, and vomiting. Patient is known to our service as Dr. Ayaan Escalera created his left upper
extremity brachiobasilic AV fistula on 04/28/2024. He was then brought back on 08/04/2024
Past Medical History
Past Medical History: Renal Failure (HD MWF), Valvular Disease (Mitral regurgitation) and Other (Dyslipidemia)
Past Surgical History: Other (Hernia repair)
Social History
Tobacco: Non-Smoker
Alcohol: None
Drug: None
Allergies / Home Medications
Allergy/AdvReac Type Severity Reaction Status Date / Time
No Known Allergies Allergy Verified 01/13/25 09:35
�Medication �Instructions �Recorded �Confirmed �Type
aspirin 81 mg tablet,delayed 81 mg PO DAILY 11/22/23 08/04/24 History
release
carvedilol 25 mg tablet (Coreg) 25 mg PO BID Blood Pressure 11/22/23 08/04/24 History
insulin glargine 100 unit/mL (3 4 unit SC QPM Diabetes 11/22/23 08/04/24 History
mL) subcutaneous pen (Lantus
Solostar U-100 Insulin)
sodium bicarbonate 650 mg tablet 1,300 mg PO BID Electrolyte 11/22/23 08/04/24 History
Repletion
calcitriol 0.5 mcg capsule 0.5 mcg PO DAILY 04/20/24 08/04/24 History
cholecalciferol (vitamin D3) 25 25 mcg PO DAILY 04/20/24 08/04/24 History
mcg (1,000 unit) tablet (Vitamin
D3)
sevelamer carbonate 800 mg tablet 800 mg PO TID 04/20/24 08/04/24 History
midodrine 5 mg tablet 5 mg PO TID PRN see note #20 tabs 07/29/24 08/04/24 Rx
polyethylene glycol 3350 17 gram 17 g PO DAILYPRN PRN constipation 07/29/24 08/04/24 History
oral powder packet (Miralax)
rosuvastatin 40 mg tablet (Crestor) 40 mg PO QPM 07/29/24 08/04/24 History
oxycodone 5 mg tablet 5 mg PO Q8HPRN PRN moderate pain 08/04/24 Rx
#4 tabs
Review of Systems
-
History Source: Patient
Constitutional: Reports No Symptoms
EENT: Reports No Symptoms
Respiratory: Reports No Symptoms
Cardiac: Reports No Symptoms
Abdomen/GI: Reports No Symptoms
: Reports No Symptoms
Musculoskeletal: Reports No Symptoms
Skin: Reports Other (Left upper extremity AV fistula)
Physical Exam
Vital Signs
Temp Pulse Resp BP Pulse Ox
98.1 F 72 16 108/72 99
01/13/25 09:33 01/13/25 10:15 01/13/25 09:33 01/13/25 10:15 01/13/25 10:15
Physical Exam
General: No Apparent Distress
HEENT: Normocephalic, Anicteric and Atraumatic
Respiratory: Non Labored Respirations
Cardiac: Negative JVD
GI: Soft, Non Tender and Non Distended
Musculoskeletal: No Edema
Skin: Other (Left upper extremity AV fistula pulsatile, no thrill or bruit, left radial +2 palpable)
Neuro: AO x 3
Assessment / Plan
-
Assessment: 79-year-old male end-stage renal disease with left upper extremity AV fistula reported inability to access at HD center this morning
Plan:
Given physical exam of no bruit or thrill and pulsatility suspect clot, ultrasound pending
Will likely require fistulogram and declot
N.p.o.
BMP and CBC
--- NOTE | 2025-01-13 11:23 | ED.GENMED ---
History of Present Illness
General
Chief Complaint: Vascular Access Problem
Source: patient
Time Seen by Provider: 01/13/25 09:39
History of Present Illness
History of Present Illness:
Note:
CHIEF COMPLAINT(S)
Non-functioning dialysis access and significant bleeding post-attempted dialysis.
HISTORY OF PRESENT ILLNESS
The patient is a 79-year-old male with a history that includes end-stage renal disease requiring dialysis. The chief complaint is the malfunctioning of the dialysis access which began last Saturday. The patient reported that during a previous
dialysis session, the access site was noted to be sluggish, leading to excessive bleeding that took 20 to 30 minutes to stop. On the following Saturday, the same issues were encountered despite administration of heparin flush. Today, the dialysis
attempt was unsuccessful as the arterial line was resistant and again resulted in significant bleeding that took an extended period to stop. The patient was advised by the dialysis team at Dr. Mack office to seek emergency evaluation due to
persistent access issues and incomplete dialysis treatment.
PHYSICAL EXAM
General: Alert, no acute distress.
Skin: Warm, dry.
Head: Normocephalic, atraumatic.
Neck: Supple, trachea midline.
Eye Ears, Nose, Mouth, and Throat: Oral mucosa moist.
Cardiovascular: Normal peripheral perfusion, No edema. Unable to palpate a thrill in the left upper extremity, but distal pulses are normal.
Respiratory: Respirations are non-labored.
Gastrointestinal: Abdomen nondistended.
Back: Normal range of motion, Normal alignment.
Neurological: Alert and oriented to person, place, time, and situation. No focal neurological deficit observed.
Psychiatric: Cooperative, appropriate mood & affect.
PLAN
1. Ultrasound to assess the function of the dialysis access.
2. Obtain blood work, including potassium levels, to assess for any imbalances due to incomplete dialysis.
DIFFERENTIAL DIAGNOSIS
The Differential Diagnosis includes, in no particular order and is not limited to:
1. Dysfunctional dialysis fistula or graft
2. Thrombosis of the vascular access site
3. Bleeding disorder
4. Infection of vascular access site
5. Hematoma formation
6. Vascular stenosis
7. Mechanical occlusion of the dialysis equipment
8. Arterial steal syndrome
9. Heparin-induced bleeding
10. Pseudoaneurysm of the access site
Disposition:
SUMMARY OF ENCOUNTER
The patient, a 79-year-old male with end-stage renal disease on dialysis, was evaluated in the emergency department due to malfunctioning dialysis access and significant bleeding at the access site. Vascular surgery was consulted to assess the
situation given the patients history of sluggish and resistant arterial lines during recent dialysis sessions. Ultrasound was conducted to evaluate the vascular access, confirming the need for surgical intervention. The patient remained stable
throughout the emergency department evaluation.
DISPOSITION
Admit for surgical intervention by vascular surgery.
PLAN
Coordinate with vascular surgery for operative intervention to address the malfunctioning dialysis access.
INDEPENDENT REVIEW OF LABS AND INTERPRETATION OF TESTS
My independent review of the ultrasound indicates significant issues requiring surgical management of the dialysis access.
MEDICAL DECISION MAKING
Chronic conditions affecting care: End-stage renal disease, malfunctioning dialysis access.
-Complexity of Data Reviewed:
Differential diagnosis considered includes dysfunctional dialysis fistula or graft, thrombosis of the vascular access site, bleeding disorder, infection of the vascular access site, hematoma formation, vascular stenosis, mechanical occlusion of the
dialysis equipment, arterial steal syndrome, heparin-induced bleeding, and pseudoaneurysm of the access site.
-Data:
Category 3:
Discussion of management with vascular surgery regarding need for operative intervention.
DIAGNOSIS
Primary diagnosis: Dysfunctional dialysis access (ICD-10: T82.868).
Past History
Past History
ED Past Medical History: None
ED Past Surgical History: None
Social History
Tobacco: Non-smoker
Family History
Family History: Unable to obtain
Phy Exam
Physical Exam
Physical Exam:
.
Course
Orders/Labs/Results
Orders:
Orders
01/13/25 10:08
Hemodialysis Graft US [US Hemodialysis Graft] Urgent
Comment:
Reason For Exam: unable to get flow at HD
01/13/25 12:00
Heparin Sodium,Porcine/Ns/Pf [Heparin 2000 Units/1000 ml] 2,000 unit in 1,000 ml .ROUTE .STK-MED
Lidocaine HCl/Pf [Xylocaine-Mpf 1% Vial] 100 mg .ROUTE .STK-MED ONE
01/13/25 12:06
CBC/No Diff [Complete Blood Count/No Diff] Stat
PT/INR [Prothrombin Time] Stat
PTT Stat
01/13/25 12:29
Fentanyl Citrate/Pf [Sublimaze] 25 mcg IV [id number] PRN
Fentanyl Citrate/Pf [Sublimaze] 25 mcg IV PACU-Q5MPRN PRN
Fentanyl Citrate/Pf [Sublimaze] 50 mcg IV PACU-Q5MPRN PRN
Ondansetron Injectable [Zofran] 4 mg IV PACU-ONCEPRN PRN
Prochlorperazine [Compazine] 5 mg IV PACU-ONCEPRN PRN
Notify MD As Directed
Notify physician if: for SDS patients with known or suspected sleep obstructive sleep apnea, monitor in the
PACU.
Notify MD for any apneic/desaturation episodes
O2 Therapy [RESP] Urgent
Titrate/Wean O2 to maintain O2 sat greater than (%): 92
Special Instructions: -Provide supplemental oxygen to achieve O2 sat of 92% or greater.
-After 15 min, may wean O2 and discontinue if patient is able to maintain O2 sat of 92%
or greater during recovery period.
If patient is a discharge home, without oxygen therapy, notify anestheiologist if
unable to maintain O2 SAT of 92% or greater on room air for MD clearance.
01/13/25 12:30
0.9% Sodium Chloride 1000 ml [Nss] 1,000 ml IV PER PROTOCOL
01/13/25 12:35
Midazolam HCl [Versed] 2 mg .ROUTE .STK-MED ONE
01/13/25 12:37
Propofol [Diprivan] 40 ml .ROUTE .STK-MED
01/13/25 12:38
Dexamethasone Sod Phosphate [Decadron] 20 mg .ROUTE .STK-MED ONE
01/13/25 12:45
Alteplase [Cathflo/Activase] 6 mg .ROUTE .STK-MED ONE
01/13/25 13:05
Basic Metabolic Panel Urgent
01/13/25 13:13
Phenylephrine HCl/0.9% NaCl [Luis Felipe-Synephrine] 1,000 mcg .ROUTE .STK-MED ONE
01/13/25 13:30
Heparin 10,000 units .ROUTE .STK-MED ONE
01/13/25 13:39
Propofol [Diprivan] 20 ml .ROUTE .STK-MED
01/13/25 14:06
Protamine 50 mg .ROUTE .STK-MED ONE
01/13/25 14:09
Code Status As Directed
Resuscitation Status: Full Code
Bisacodyl [Dulcolax] 10 mg RECTAL DAILYPRN PRN
01/13/25 14:10
Admit Patient As Directed
Co-Sign Provider:
Level of Care: Inpatient admission
Assign to:: Telemetry
Physician / Group: Vascular Surgery
Diagnosis: Clotted AVF
Reason for Telemetry: Other
Other Reason for Telemetry: post procedure/ESRD
Date to Stop Telemetry: 01/15/25
Time to Stop Telemetry: 11:00
Reason for Hospitalization: s/p fistulagram
Expected length of stay greater than two midnights?: No
ELOS- Estimated Length of Stay in days: 2
I certify the patient meets the requirements for IP care: Yes
Activity As Directed
Activity Level: Bedrest for limited time
Out of Bed- Ad Lali
Bedrest duration in hours then activity as indicated above:: 6
Comment: bedrest x 6H then out of bed. keep puncture site extremity straight x 6H
Intake/ Output As Directed
Frequency: Per unit guidelines
Neurovascular Checks As Directed
Location: Left Upper extremity
Frequency: Other
Other frequency: Q15min x 4, Q30min x 2, then Q1H x 4H, then Q4H
Notify MD As Directed
Notify physician if: - bleeding from catheter site
- hematoma
- loss of peripheral pulse/singal
- worsening temperature or color of limb
- loss of sensation or motor function in limb
Site Checks As Directed
Check access site for bleeding/hematoma: Yes
Comment: Q15min x 4, Q30min x 2, then Q1H x 4H
Vital Signs As Directed
Frequency: Other
Additional Instructions:: Q15min x 4, Q30min x 4, Q1hr x 3hrs (begin after hemostasis), then per unit
guidelines
Rx Incentive Spirometry [RESP] Routine
Frequency: q1h
DX Deep Vein Thrombosis Video Routine
01/13/25 14:14
PRN Pain Medication Management As Directed
May give lesser potent ordered pain med per pt: Yes
preference::
Protocol:: Medication orders for pain may be administered in a
manner that supports deferring to patient preference
when the pt is:
- Requesting an ordered lesser potent pain medication.
Least to most potent pain medications are defined
as: acetaminophen < NSAID < tramadol < opioids
(morphine, oxycodone, hydromorphone).
- Requesting a lesser dose of the same medication IF
ORDERED.
- Requesting a less intrusive route of administration
if both routes are prescribed by the provider (PO <
IV).
01/13/25 14:15
NEPHROLOGY CONSULT Routine
Consulting Provider: Jas May V.
Was physician already notified: Yes
Acetaminophen [Tylenol] 650 mg PO Q4HPRN PRN
Oxycodone [Roxicodone] 5 mg PO Q6HPRN PRN
01/13/25 14:16
Polyethylene Glycol Powder [Miralax] 17 grams PO DAILYPRN PRN constipation
01/13/25 14:18
Dextrose 50%-Water [Dextrose 50% Syringe] 12.5 grams IV [id number] PRN
Glucagon [GlucaGen] 1 mg IM PRN PRN
Bedside Glucose Monitoring As Directed
Frequency: AC&HS
Additional Instructions:: Change to q6h if pt on TPN, tube feeding or not eating
01/13/25 Dinner
2000 calorie (17 carb) Diabetic
Diabetic Diet: Potassium, 2 Gram
Hemodialysis treatment As Directed
Treatment date:: 01/14/25
Treatment type: Hemodialysis
Ultrafiltration (kg): 2-3kg
Treatment time (duration): 3 hours 30 minutes
Use dialysis access:: AVF
Dialyzer:: Optiflux 160
Blood flow rate minimum: 350
Blood flow rate maximum: 400
Dialysis flow rate: 600 mL/min
Dialysate temperature: 37 degrees Celsius
Sodium (Na): 137
Potassium (K): 2
Calcium (Ca): 2.5
Bicarbonate (HCO3): 37
01/13/25 16:00
Sevelamer Carbonate [Renvela] 800 mg PO TID
01/13/25 16:30
Insulin Aspart Corrective Mod [Novolog Flexpen-Moderate Resistance] See Protocol SC AC
01/13/25 18:00
Rosuvastatin Calcium [Crestor] 40 mg PO QPM
insulin glargine [Lantus Solostar U-100 Insulin] 4 unit SC QPM
01/13/25 20:00
Carvedilol [Coreg] 25 mg PO BID
Heparin 5,000 units SC Q12
Sodium Bicarbonate 1,300 mg PO BID
01/14/25 06:00
Basic Metabolic Panel IN AM
Complete Blood Count/No Diff IN AM
01/14/25 07:00
Electrolytes Urgent
Comment: pre-Hemodialysis lab, to be drawn by HD nurse
H&H Urgent
Comment: pre-Hemodialysis lab, to be drawn by HD nurse
01/14/25 08:00
Albumin Human 25% 50 ml [Flexbumin 25% For Hemodialysis] 12.5 grams IV HD-Q1HPRN PRN
Aspirin Low Dose EC [Aspir Low (Enteric Coated)] 81 mg PO DAILY
Cholecalciferol (Vitamin D3) [VITAMIN D3 (cholecalciferol)] 25 mcg PO DAILY
Mannitol 25% 12.5 grams IV HD-Q1HPRN PRN
Midodrine [ProAmatine] 5 mg PO HD-ONCE ONE
Sodium Chloride [Sodium Chloride 4 Meq/ml For Hemodialysis] 10 ml IV HD-Q1HPRN PRN
calcitriol 0.5 mcg PO DAILY
01/15/25 11:00
DC Protocol for Telemetry ONCE
Abnormal Lab Results
01/13/25 01/13/25
12:06 13:05
RBC 3.66 L 10^6/uL
(4.70-6.10)
Hgb 11.1 L g/dL
(13.0-18.0)
Hct 34.9 L %
(39.0-52.0)
MCV 95.4 H fL
(80.0-94.0)
MCHC 31.8 L g/dL
(33.0-37.0)
RDW 15.8 H %
(11.5-14.5)
Plt Count 92 L 10^3/uL
(130-400)
MPV 11.1 H fL
(7.4-10.4)
PT 14.8 H Sec
(11.4-14.6)
APTT 41.3 H Sec
(23.4-35.0)
Potassium 5.2 H mmol/L
(3.5-5.1)
Carbon Dioxide 34 H mmol/L
(22-30)
BUN 47 H mg/dl
(9-20)
Creatinine 9.6 H* mg/dL
(0.7-1.3)
01/13/25 12:06
01/13/25 13:05
Vital Signs
Initial and Last Documented VS:
Initial Vital Signs
Temp Pulse Resp BP Pulse Ox
98.1 F 56 16 160/88 100
01/13/25 09:33 01/13/25 09:33 01/13/25 09:33 01/13/25 09:33 01/13/25 09:33
Last Documented Vital Signs
Temp Pulse Resp BP Pulse Ox
98.1 F 57 19 128/62 98
01/13/25 09:33 01/13/25 15:52 01/13/25 15:52 01/13/25 15:52 01/13/25 15:52
*Pulse Oximetry
SaO2: 99
Oxygen Mode of Delivery: Room air
Patient hypoxic: no
*Critical Care Note
Total Time (30-74mins, 75-104mins- exclusive of procedures): Not Applicable
ED Attending Note
-
Portions of this chart may have been created with voice recognition software.� Occasional wrong word or��sound alike� substitutions may have occurred due to the inherent limitations of voice recognition software.
Discharge Plan
Departure
Patient Disposition: OR
Date of Disposition: 01/13/25
Time of Disposition: 11:23
Admit to: OR
Presentation/result/management discussed w/ accepting MD/DO: vascular
Discharge Problem:
Dialysis AV fistula malfunction
Interventions
Interventions:
*Risk Screen - Suicide Last Done: 01/13/25 10:13
*General Assessment Last Done: 01/13/25 10:13
*Neglect/Abuse Screening Last Done: 01/13/25 10:13
*ED- Fall Risk Assessment Last Done: 01/13/25 10:13
*ED COVID-19 Vaccine History Last Done: 01/13/25 10:13
*Nursing Disposition Last Done: 01/13/25 11:45
Discharge Date and Time
Discharge Date/Time: 01/13/25 11:45
[2025-01-13 12:21] LABS: Hematocrit 34.9 % (39.0-52.0); Hemoglobin 11.1 g/dL (13.0-18.0); Mean Corp Hgb Conc. 31.8 g/dL (33.0-37.0); Mean Corpuscular Volume 95.4 fL (80.0-94.0); Red Cell Dist. Width 15.8 % (11.5-14.5)
[2025-01-13 12:21] LABS: Glucose - Point of Care 75 mg/dl (70-99)
[2025-01-13 12:25] LABS: INR 1.11; PT 14.8 Sec (11.4-14.6)
[2025-01-13 12:26] LABS: APTT 41.3 Sec (23.4-35.0)
--- NOTE | 2025-01-13 12:26 | PTCARENOTE ---
Received pt from ultrasound, and obtained report from NANCY Longo from ER. Pt VSS. Hr 67, BP 141/93, sat 98% on RA. BG 75, IV placed, labs drawn. L arm AV fistula -bruit - thrill. Pt seen by to obtain consent and anesthesia.
[2025-01-13 12:31] LABS: Platelet Count 92 10^3/uL (130-400)
[2025-01-13 13:50] LABS: Blood Urea Nitrogen 47 mg/dl (9-20); Calcium 9.4 mg/dl (8.4-10.2); Carbon Dioxide 34 mmol/L (22-30); Chloride 100 mmol/L (98-107); Estimated Creatinine Clearance 7 ml/min; Glucose 94 mg/dl (70-99); Potassium 5.2 mmol/L (3.5-5.1); Sodium 141 mmol/L (135-145); eGFR 5.14
--- NOTE | 2025-01-13 14:49 | W.CON.NEPH ---
Consultation
-
Date/Time Consultation Requested: 01/13/2025 1:30 PM
Date/Time Consultation Performed: 01/13/2025 3:00 PM
Requesting Provider: Dr. Escalera
Performing Provider: Dr. May
Reason for Consultation: End-stage renal disease
Medical History
-
Chief Complaint: DAMARI on CKD
History of Present Illness:
Mr. Hernández is a 79YOM with PMH of ESRD on MWF (missed HD today), HTN (on coreg), chronic hypotension on midodrine support ,DLD, diabetes on insulin who presents to the hospital with malfunctioning LUE AVF. We were consulted for ESRD management
and dialysis requirement. Patient was taken for fistulogram for thrombosed left upper extremity AVF
Past Medical History
ESRD
Secondary hyperparathyroidism
Hyperphosphatemia
hypertension,
Hyperlipidemia
Diabetes
Past Surgical History: Other (Eye surgery, appendectomy, hernia surgery)
Social History
Tobacco: Non-Smoker
Alcohol: None
Drug: None
Family History
Family History: Not Pertinent
Allergies / Home Medications
Allergy/AdvReac Type Severity Reaction Status Date / Time
No Known Allergies Allergy Verified 01/13/25 09:35
�Medication �Instructions �Recorded �Confirmed �Type
aspirin 81 mg tablet,delayed 81 mg PO DAILY 11/22/23 08/04/24 History
release
carvedilol 25 mg tablet (Coreg) 25 mg PO BID Blood Pressure 11/22/23 08/04/24 History
insulin glargine 100 unit/mL (3 4 unit SC QPM Diabetes 11/22/23 08/04/24 History
mL) subcutaneous pen (Lantus
Solostar U-100 Insulin)
sodium bicarbonate 650 mg tablet 1,300 mg PO BID Electrolyte 11/22/23 08/04/24 History
Repletion
calcitriol 0.5 mcg capsule 0.5 mcg PO DAILY 04/20/24 08/04/24 History
cholecalciferol (vitamin D3) 25 25 mcg PO DAILY 04/20/24 08/04/24 History
mcg (1,000 unit) tablet (Vitamin
D3)
sevelamer carbonate 800 mg tablet 800 mg PO TID 04/20/24 08/04/24 History
midodrine 5 mg tablet 5 mg PO TID PRN see note #20 tabs 07/29/24 08/04/24 Rx
polyethylene glycol 3350 17 gram 17 g PO DAILYPRN PRN constipation 07/29/24 08/04/24 History
oral powder packet (Miralax)
rosuvastatin 40 mg tablet (Crestor) 40 mg PO QPM 07/29/24 08/04/24 History
oxycodone 5 mg tablet 5 mg PO Q8HPRN PRN moderate pain 08/04/24 Rx
#4 tabs
Review of Systems
-
History Source: Patient
All other systems: Negative unless noted
Musculoskeletal: Other (Left upper extremity AV fistula)
Physical Exam
Vital Signs
Vital Signs
Temp Pulse Resp BP Pulse Ox
98.1 F 72 16 108/72 100
01/13/25 09:33 01/13/25 10:15 01/13/25 09:33 01/13/25 10:15 01/13/25 14:44
Lab Results
01/13/25 12:06
01/13/25 13:05
WBC 6.1 10^3/uL (4.8-10.8) 01/13/25 12:06
RBC 3.66 10^6/uL (4.70-6.10) L 01/13/25 12:06
Hgb 11.1 g/dL (13.0-18.0) L 01/13/25 12:06
Hct 34.9 % (39.0-52.0) L 01/13/25 12:06
Plt Count 92 10^3/uL (130-400) L 01/13/25 12:06
Sodium 141 mmol/L (135-145) 01/13/25 13:05
Potassium 5.2 mmol/L (3.5-5.1) H 01/13/25 13:05
Chloride 100 mmol/L (98-107) 01/13/25 13:05
Carbon Dioxide 34 mmol/L (22-30) H 01/13/25 13:05
BUN 47 mg/dl (9-20) H 01/13/25 13:05
Creatinine 9.6 mg/dL (0.7-1.3) H* 01/13/25 13:05
eGFR 5.14 01/13/25 13:05
Glucose 94 mg/dl (70-99) 01/13/25 13:05
Calcium 9.4 mg/dl (8.4-10.2) 01/13/25 13:05
Physical Exam
General: AOx3, Nontoxic , NAD
HEENT: PERRL, EOMI, Anicteric, Conjunctivae Clear, Ear/Nose Intact, Hearing Normal, Oropharynx Clear/Moist, Dentition Intact, Facial Symmetry, Neck Supple, Neck: Trachea Midline, No JVD and No Thyromegaly, no Bruits
Respiratory: Clear to auscultation bilaterally with normal lung exersion
Cardiac: S1/S2 and Regular Rate/Rhythm
Breast: Deferred by me
Abdomen: Soft, Nontender, Nondistended, Normal Bowel Sounds and No Hepatosplenomegaly
Rectal: Deferred by Provider
Genito-urinary: No Costovertebral Tenderness
Extremities: No Clubbing, No Cyanosis and No Edema
Skin: No Rash or open lesions
Neuro: Nonfocal/Grossly Intact, CN II-XII (Intact) and Strength (Musculoskeletal exam 5 out of 5 both upper and lower extremities)
Hematologic/Lymphatic: No Cervical Lymphadenopathy, No Submandibular Lymphadenopathy and No Supraclavicular Lymphadenopathy
Psych: Mood/afflect pleasant, Insight/judgement good and Appropriate
Vascular: plus 1 pedal and radial pulses
Vascular Access: AVF (Left upper extremity AV fistula)
Data Reviewed
-
Radiology: Report Reviewed by me (Ultrasound report noted thrombosed AV fistula of left upper extremity)
Labs: Labs Reviewed by me
Old Records: Reviewed (Old nephrology note reviewed in EMR when patient was initiated on dialysis in November 2023 from date 12/02/2023)
Assessment/Plan
-
Assessment:
Admission for thrombosed left upper extremity AV fistula
ESRD MWF ([facility] dialysis unit)
Anemia
HTN now chronically hypotensive
DLD
T2DM
Hyperphosphatemia
Secondary hyperparathyroidism
Plan:
Will provide dialysis tomorrow if left upper extremity AV fistula remains patent following fistulogram
Dialysis orders to be written
Fluid restriction at 50 ounces daily with low-sodium potassium diet
Maintain midodrine for blood pressure support in setting of hypotension
BENNY can be provided on dialysis for anemia as needed
Maintain Cinacalcet for secondary hyperparathyroidism
[2025-01-13 15:00] LABS: Glucose - Point of Care 84 mg/dl (70-99)
--- NOTE | 2025-01-13 17:53 | OR.RPT ---
Operative Report
Operative Report
Date of Operation: 01/13/2025
Pre Op Diagnosis: Thrombosed left upper extremity brachiobasilic arteriovenous fistula
Post Op Diagnosis: Thrombosed left upper extremity brachiobasilic arteriovenous fistula
Procedure:
1. Percutaneous pharmacomechanical thrombectomy of thrombosed left upper extremity arteriovenous fistula (AngioJet)
2. Balloon angioplasty of venous stenosis in the basilic vein fistula:
4 mm x 60 mm proximal venous outflow; 5 mm x 20 mm cutting balloon proximal venous outflow
7 mm x 60 mm mid/distal venous outflow
3. Diagnostic fistulogram
4. Central venogram
5. Ultrasound-guided percutaneous access to the left upper arm arteriovenous fistula
Surgeon: Ayaan Escalera III, MD
Chainstitch Elastic Attacher: Chidi Jose MD PGY-6
Anesthesia: Sedation/local
Complications: None
Fluoroscopy:
15 minutes
32 mGy
6.34 DAP
History and Indications for Procedure: 79-year-old male with acutely thrombosed left upper extremity fistula
Procedure in Detail: Paul Hernández was correctly identified and placed supine on the operating table. After adequate induction of anesthesia the left arm was positioned, prepped and draped in the usual sterile fashion. A timeout procedure was
performed with the nursing and anesthesia staff confirming the patient�s identity as well as the nature and laterality of the procedure.
Intraoperative ultrasound was performed on the AV access. Ultrasound demonstrated a thrombosed left upper extremity brachiobasilic arteriovenous fistula. The proximal vein remained patent and was pulsatile..
I identified a puncture site along the proximal vein and infiltrated local anesthesia at this site. Under ultrasound guidance I accessed the fistula with a micropuncture needle facing towards the venous outflow and placed the micropuncture sheath.
I then placed a 6 Romanian short sheath over a Bentson wire. A glide catheter and Bentson wire were used to navigate across the occluded segment of the basilic vein fistula and into the distal basilic vein outflow.
A venogram was performed with the catheter in the axillary vein which demonstrated patency of the distal basilic vein, axillary vein, subclavian vein and central venous system. There was some stenosis of the subclavian vein over the first rib. The
catheter was retracted while injecting contrast to identify the point of occlusion and the basilic vein fistula. I then slowly retracted the glide catheter back while instilling 6 mg of tPA into the thrombus of the occluded basilic vein segment.
Systemic heparin was administered. After 15 minutes a fistulogram was performed demonstrating flow through the fistula but significant residual thrombus remained. I then performed mechanical thrombectomy on the fistula using the AngioJet device.
Multiple passes were made through the fistula with the AngioJet catheter. Subsequent fistulogram demonstrated improvement with diffuse stenoses identified throughout the length of the basilic vein. It also appeared that there was a significant
proximal venous stenosis and that the 6 Romanian sheath was occlusive at the proximal vein segment.
Under roadmap guidance I then used a 7 mm x 60 mm angioplasty balloon to perform balloon angioplasty on the distal basilic vein outflow and mid basilic vein outflow. The balloon was inflated to nominal pressure at each segment and held in place for
30 seconds. The balloon profiled nicely with no residual waist. Subsequent fistulogram demonstrated improvement in the appearance of the basilic vein at the mid and distal segment after angioplasty. In order to treat the proximal vein stenosis I
then accessed the fistula under ultrasound guidance in a more distal location facing towards the arteriovenous anastomosis. In order to allow wire and catheter passage through the proximal vein I had to remove the initial 6 Romanian sheath as it was
occlusive of the vein segment at that location. A 4-0 Monocryl suture was placed at that exit site and the sheath was removed.
A Bentson wire and glide catheter were navigated across the proximal vein segment from the newly placed 6 Romanian sheath in the distal aspect of the fistula. The arteriovenous anastomosis was crossed with the glide catheter and Bentson wire. A
fistulogram was performed demonstrating a patent brachial artery with no evidence of stenosis. The arteriovenous anastomosis was patent with no evidence of stenosis. There was a high-grade stenosis in the proximal venous outflow segment. I
exchanged out for a 0.014 wire. I used a 4 mm x 60 mm angioplasty balloon to treat the proximal venous outflow stenosis. The balloon was inflated was positioned in the desired location under roadmap guidance and inflated to nominal pressure. 2
separate inflations were performed with a 1 minute inflation at each segment. A focal residual stenosis was identified and was treated with a 5 mm x 20 mm cutting angioplasty balloon. The cutting angioplasty balloon profiled the vein segment
nicely at nominal pressure with no residual waist.
Completion fistulogram demonstrated a patent brachiobasilic arteriovenous fistula with brisk flow and significant improvement compared to pretreatment. The proximal vein segment was widely patent with no residual stenosis identified. The mid to
distal basilic vein outflow was patent. Some residual stenosis and residual thrombus was identified in the mid to distal basilic vein but the flow was brisk through the fistula. The distal venous outflow and central veins were patent.
Satisfied with this result and reestablishment of fistula patency we concluded the procedure. Protamine was administered.
At the conclusion of the procedure a Monocryl suture was placed around the sheath puncture site. The sheath was removed and the suture secured. Hemostasis was achieved at all access sites. A sterile dressing was applied. There was an easily
palpable thrill in the fistula at the conclusion of the case.
The patient tolerated the procedure well and was taken to the PACU in stable condition
Attestation: I was present and responsible for the entire procedure
Signed:
Ayaan Escalera III, MD
Vascular Surgery
[facility]
[2025-01-13] MEDS: SODIUM BICARBONATE 1300 MG PO (20:07)
[2025-01-13] MEDS: CRESTOR 40 MG PO (20:08)
[2025-01-13] MEDS: COREG 25 MG PO (20:08)
[2025-01-13] MEDS: HEPARIN 5000 UNITS SC (20:08)
[2025-01-13] MEDS: LANTUS 0.04 UNITS SC (20:15)
[2025-01-13] MEDS: RENVELA 800 MG PO (20:16)
[2025-01-13 21:09] LABS: Glucose - Point of Care 205 mg/dl (70-99)
--- NOTE | 2025-01-14 00:25 | PTCARENOTE ---
Pt transferred to 4W. Pt able to stand pivot from stretcher to bed. No c/o pain. Pt oriented to room, safety measures in place, call lu within reach.
[2025-01-14 03:24] VITALS: BP 110/95
[2025-01-14 07:21] VITALS: BP 146/71
[2025-01-14 07:32] LABS: Glucose - Point of Care 98 mg/dl (70-99)
[2025-01-14 08:21] VITALS: BP 146/71
--- NOTE | 2025-01-14 08:39 | W.PN.NEPH.HD ---
Assessment
-
Patient seen on dialysis
Systolic blood pressure 113 at current Becka
AV fistula with good function following last evening's PCI procedure with AV fistulogram for thrombosed access
Progress Note - Hemodialysis
-
Date of Service: January 14, 2025
Duration: 30 minutes and 3 hours
Potassium Bath: 2
Calcium Bath: 2.5
Opti-Dialyzer: 160
Ultrafiltration: Other (2.5kg)
Blood Flow: 400
Dialysate Flow: 600
Heparin: none
EPO: none
[2025-01-14] MEDS: MANNITOL 25% 12.5 GRAMS IV ×2 (08:40→10:30)
[2025-01-14] MEDS: FLEXBUMIN 25% FOR HEMODIALYSIS 12.5 GRAMS IV ×2 (08:45→10:29)
[2025-01-14 08:46] LABS: Hematocrit 30.3 % (39.0-52.0); Hemoglobin 9.9 g/dL (13.0-18.0); Mean Corp Hgb Conc. 32.7 g/dL (33.0-37.0); Mean Corpuscular Volume 93.2 fL (80.0-94.0); Platelet Count 89 10^3/uL (130-400); Red Cell Dist. Width 15.0 % (11.5-14.5)
--- NOTE | 2025-01-14 09:28 | W.PN.VS ---
Today's Communication / Plan
-
Discussed with Dr. Escalera
Assessment/Plan
-
POD 1
1. Percutaneous pharmacomechanical thrombectomy of thrombosed left upper extremity arteriovenous fistula (AngioJet)
2. Balloon angioplasty of venous stenosis in the basilic vein fistula:
3. Diagnostic fistulogram
4. Central venogram
5. Ultrasound-guided percutaneous access to the left upper arm arteriovenous fistula
Plan:
Okay for discharge after HD complete
Subjective Data
-
Date of Service: January 14, 2025
Patient seen at bedside this a.m. while on HD. HD nurse notes fistula working well. No other events overnight
Objective Data
-
Vital Signs
Temp Pulse Resp BP Pulse Ox
98.4 F 67 18 146/71 100
01/14/25 07:21 01/14/25 07:21 01/14/25 07:21 01/14/25 07:21 01/14/25 07:21
Intake and Output
01/13/25 01/14/25 01/15/25
06:59 06:59 06:59
Intake Total 480 / 480
Balance 480 / 480
Intake:
Oral fluids 480 / 480
Lab Results
01/14/25 07:43
Calcium 9.4 mg/dl (8.4-10.2) 01/13/25 13:05
Physical Exam
-
AAO x 3
No tachypnea on room air
No tachycardia
Abdomen soft
Left upper extremity AVF site currently accessed for HD
Hand warm
[2025-01-14 09:32] LABS: Blood Urea Nitrogen 61 mg/dl (9-20); Calcium 9.6 mg/dl (8.4-10.2); Carbon Dioxide 31 mmol/L (22-30); Chloride 100 mmol/L (98-107); Estimated Creatinine Clearance 6 ml/min; Glucose 93 mg/dl (70-99); Sodium 139 mmol/L (135-145); eGFR 4.46
[2025-01-14 09:44] LABS: Potassium 6.2 mmol/L (3.5-5.1)
[2025-01-14] MEDS: RETACRIT 10000 UNITS IV (10:29)
[2025-01-14 10:40] VITALS: BP 95/50
--- NOTE | 2025-01-14 11:46 | CM ---
Patient is for possible discharge today, patient lives with spouse in a 2 story home with 2 steps to enter, patient is independent with adl's and uses a crutch with ambulation, patient goes to HD at [facility], patient transports himself to HD.
Plan; Home today no needs.
[facility]
[phone]
[2025-01-14 12:07] LABS: Glucose - Point of Care 79 mg/dl (70-99)
[2025-01-14] MEDS: ROCALTROL 0.5 MCG PO (12:15)
[2025-01-14] MEDS: SODIUM BICARBONATE 1300 MG PO (12:15)
[2025-01-14] MEDS: ASPIR LOW (ENTERIC COATED) 81 MG PO (12:16)
[2025-01-14] MEDS: COREG 25 MG PO (12:16)
[2025-01-14] MEDS: VITAMIN D3 (cholecalciferol) 25 MCG PO (12:17)
[2025-01-14] MEDS: HEPARIN 5000 UNITS SC (12:17)
[2025-01-14] MEDS: RENVELA PO (12:20)
[2025-01-14] MEDS: RENVELA 800 MG PO (12:21)
== END 2025-01-14 14:34 | disposition home or self-care (01) | DRG 252 ==
LOC: 4 WEST ACU 18:58
PROVIDERS: Nurse Practitioner; ADMITTING PHYSICIAN Surgery Vascular Surgery; CONSULT PHYSICIAN Specialist; EMERGENCY PHYSICIAN Emergency Medicine
PROC: B51N1ZZ Fluoroscopy of Left Upper Extremity Veins using Low Osmolar Contrast (ICD-10-PCS; 2025-01-13)
PROC: B51W1ZZ Fluoroscopy of Dialysis Shunt/Fistula using Low Osmolar Contrast (ICD-10-PCS; 2025-01-13)
PROC: 3E03317 Introduction of Other Thrombolytic into Peripheral Vein, Percutaneous Approach (ICD-10-PCS; 2025-01-13)
PROC: 057C3ZZ Dilation of Left Basilic Vein, Percutaneous Approach (ICD-10-PCS; 2025-01-13)
PROC: 05CC3ZZ Extirpation of Matter from Left Basilic Vein, Percutaneous Approach (ICD-10-PCS; 2025-01-13)
PROC: B5171ZZ Fluoroscopy of Left Subclavian Vein using Low Osmolar Contrast (ICD-10-PCS; 2025-01-13)
PROC: 5A1D70Z Performance of Urinary Filtration, Intermittent, Less than 6 Hours Per Day (ICD-10-PCS; 2025-01-14)
DX: T82.868A Thrombosis due to vascular prosthetic devices, implants and grafts, initial encounter (principal); N18.6 End stage renal disease; I12.0 Hypertensive chronic kidney disease with stage 5 chronic kidney disease or end stage renal disease; N17.9 Acute kidney failure, unspecified; N25.81 Secondary hyperparathyroidism of renal origin; I87.1 Compression of vein; E11.22 Type 2 diabetes mellitus with diabetic chronic kidney disease; I34.0 Nonrheumatic mitral (valve) insufficiency; E78.5 Hyperlipidemia, unspecified; I95.89 Other hypotension; E83.39 Other disorders of phosphorus metabolism; D64.9 Anemia, unspecified; Y71.2 Prosthetic and other implants, materials and accessory cardiovascular devices associated with adverse incidents; Z99.2 Dependence on renal dialysis; Z79.82 Long term (current) use of aspirin; Z79.4 Long term (current) use of insulin
CPT/HCPCS: 36905; 80048; 82962; 85027; 85610; 85730; 87070; 93990; 99285; C1725; C1757; C1769; C1894; J2997; P9047; Q5106; Q9967

== ENCOUNTER 2025-02-02 08:28 | Day surgery (SDC) | payer OTHER, SELFPAY ==
--- NOTE | 2025-01-28 08:42 | PTCARENOTE ---
Addendum entered by Wendy Ty RN 02/01/25 15:55:
01/14 k was 6.2
Original Note:
Patients 01/14 potassium 6.9; Platelets 89; Hgb 9.9- Flores @ Dr. Almanza office notified
--- NOTE | 2025-01-28 15:16 | PTCARENOTE ---
Addendum entered by Wendy Ty RN 02/01/25 15:54:
K was 6.2
Original Note:
Patients 01/14 Hgb-9.9, Potassium-6.9; Platelets- 89, Dr. Birmingham reviewed and Dr. Birmingham requests nephrology be notified and potassium addressed. Flores @ Dr. Almanza office notified of same.
--- NOTE | 2025-02-01 16:09 | PTCARENOTE ---
was notified that a nephrology comment addressing the K+ 6.2 collected on 01/14/25 is not available. He said the patient will need to be evaluated at the bedside tomorrow once the repeat K+ has been resulted. In the interim, Flores at
's office will try to obtain a more recent K+ from his ongoing dialysis treatments.
[2025-02-02] VITALS (11 sets, daily range): BP systolic 89–148; BP diastolic 62–101; BMI 27.7
[2025-02-02 09:20] LABS: Glucose - Point of Care 70 mg/dl (70-99)
[2025-02-02 09:32] LABS: Hematocrit 35.9 % (39.0-52.0); Hemoglobin 11.3 g/dL (13.0-18.0); Mean Corp Hgb Conc. 31.5 g/dL (33.0-37.0); Mean Corpuscular Volume 96.8 fL (80.0-94.0); Platelet Count 117 10^3/uL (130-400); Red Cell Dist. Width 14.7 % (11.5-14.5)
[2025-02-02 09:35] LABS: INR 1.12; PT 14.7 Sec (11.4-14.6)
[2025-02-02 09:36] LABS: APTT 35.7 Sec (23.4-35.0)
[2025-02-02 09:42] LABS: Blood Urea Nitrogen 40 mg/dl (9-20); Calcium 9.4 mg/dl (8.4-10.2); Carbon Dioxide 33 mmol/L (22-30); Chloride 98 mmol/L (98-107); Glucose 75 mg/dl (70-99); Potassium 6.0 mmol/L (3.5-5.1); Sodium 140 mmol/L (135-145)
[2025-02-02] MEDS: DEXTROSE 50% SYRINGE 12.5 GRAMS IV (09:45)
[2025-02-02] MEDS: NSS 500 IV (09:46)
[2025-02-02 09:56] LABS: Estimated Creatinine Clearance 7 ml/min; eGFR 6.91
[2025-02-02] MEDS: LOKELMA 10 GRAM PO (10:16)
[2025-02-02 10:18] LABS: Glucose - Point of Care 102 mg/dl (70-99)
[2025-02-02 11:54] LABS: Glucose - Point of Care 84 mg/dl (70-99)
--- NOTE | 2025-02-02 12:10 | W.IMMPOSTOP ---
Surgical Immed Post Op Note
-
Primary Surgeon: Jw
Assisting Surgeon: Kaylee
Pre-op Diagnosis: Prolonged bleeding of AVF
Post-op Diagnosis: Stenotic outflow vein of AVF
Procedure Performed: Balloong angioplasty of AVF outflow vein
Anesthesia Type: Local/sedation
Specimen / Cultures: None
Estimated Blood Loss: 2 cc
Complications: None
Operative Findings: Stenotic outflow vein of AVF, performed balloon angioplasty
--- NOTE | 2025-02-02 14:08 | OR.RPT ---
Operative Report
Operative Report
Date of Operation: 02/02/2025
Pre Op Diagnosis:
End-stage renal disease requiring hemodialysis
Left upper extremity brachiobasilic arteriovenous fistula
Recent thrombosed fistula with successful declotting
Post Op Diagnosis:
End-stage renal disease requiring hemodialysis
Left upper extremity brachiobasilic arteriovenous fistula
Recent thrombosed fistula with successful declotting
Procedure:
1. Drug-coated balloon angioplasty of distal venous outflow stenosis, left upper extremity arteriovenous fistula (7 mm x 60 mm Lutonix)
2. Balloon angioplasty of proximal venous outflow stenosis (4 mm x 100 mm angioplasty balloon)
3. Diagnostic left upper extremity fistulogram
4. Central venogram
5. Ultrasound-guided percutaneous access to the left upper extremity arteriovenous fistula
Surgeon: Ayaan Escalera III, MD
Silk Printer: Rahul Page MD PGY2
Anesthesia: Sedation/local
Complications: None
Fluoroscopy:
6.5 minutes
16 mGy
3.22 DAP
History and Indications for Procedure: 79-year-old male with recent left upper extremity fistula thrombosis and successful declotting. He was brought back for early elective fistulogram and possible endovascular intervention.
Procedure in Detail: Paul Hernández was correctly identified and placed supine on the operating table. After adequate induction of anesthesia the left arm was positioned, prepped and draped in the usual sterile fashion. Preoperative
antibiotics were administered. A timeout procedure was performed with the nursing and anesthesia staff confirming the patient�s identity as well as the nature and laterality of the procedure.
Intraoperative ultrasound was performed on the AV access. The brachiobasilic arteriovenous fistula was patent.
I identified a puncture site along the fistula and infiltrated local anesthesia at this site. Under ultrasound guidance I accessed the fistula with a micropuncture needle facing towards the venous outflow and placed the micropuncture sheath. I
performed a fistulogram which demonstrated the following:
Fistulogram: Patent brachiobasilic arteriovenous fistula. Moderate venous outflow stenosis. Distal venous outflow widely patent with no stenosis identified
Central venogram: Widely patent with no stenosis identified
Endovascular intervention:
Systemic heparin was administered. A short 6 Fr sheath was placed. Under roadmap guidance a Bentson wire was used to cross the stenosis. I then brought a 7 mm x 60 mm Lutonix drug-coated angioplasty balloon into position under roadmap guidance and
centered this across the stenosis. This was inflated to nominal pressure and held in place for 3 minutes before deflating and removing over the wire. Subsequent images demonstrated a nice technical result with no significant residual stenosis
identified. While the balloon was inflated a reflux fistulogram was performed and this demonstrated patent arteriovenous anastomosis but the proximal vein segment was diffusely small diameter as seen on recent fistulogram. No focal stenosis was
identified. The brachial artery was patent with no stenosis identified
The 6 Greenlandic sheath was removed and a Monocryl suture was placed at the access site. Hemostasis was achieved. Under ultrasound guidance I then reaccessed the fistula with a micropuncture needle in a more distal location along the venous outflow
aiming towards the arteriovenous anastomosis. A short 5 Greenlandic sheath was placed. Under roadmap guidance we advanced the Bentson wire through the proximal vein and across the arteriovenous anastomosis. Under roadmap guidance I then brought into
position a 4 mm x 100 mm angioplasty balloon. This was positioned in the desired location across the proximal vein and inflated to nominal pressure. A 3-minute inflation was performed.
Completion fistulogram demonstrated patent brachiobasilic arteriovenous fistula with brisk flow. Improved appearance of the proximal vein with no significant residual stenosis identified. Patent venous outflow with no significant stenosis
identified.
At the conclusion of the procedure a Monocryl suture was placed around the 5 Greenlandic sheath puncture site. The sheath was removed and the suture secured. Protamine was administered. Hemostasis was achieved. A sterile dressing was applied.
The patient tolerated the procedure well and was taken to the PACU in stable condition
Attestation: I was present and responsible for the entire procedure
Signed:
Ayaan Escalera III, MD
Vascular Surgery
[facility]
== END 2025-02-02 13:45 | disposition home or self-care (01) ==
LOC: CATH 08:28
PROVIDERS: ATTENDING PHYSICIAN Surgery Vascular Surgery; PRIMARYCARE PHYSICIAN Internal Medicine
DX: I12.0 Hypertensive chronic kidney disease with stage 5 chronic kidney disease or end stage renal disease (principal); E11.22 Type 2 diabetes mellitus with diabetic chronic kidney disease; N18.6 End stage renal disease; Z99.2 Dependence on renal dialysis; I34.0 Nonrheumatic mitral (valve) insufficiency; E78.5 Hyperlipidemia, unspecified; Z79.82 Long term (current) use of aspirin; Z79.4 Long term (current) use of insulin
CPT/HCPCS: 36902; C1769; C1894; C1725; 80048; 82962; 85027; 85610; 85730; 93005; Q9967

== ENCOUNTER → 2025-03-11 10:52 | Outpatient (REF) | payer OTHER, SELFPAY | LOC: RAD 10:52 | PROVIDERS: ATTENDING PHYSICIAN Surgery Vascular Surgery; FAMILY PHYSICIAN Internal Medicine | DX: I77.0 Arteriovenous fistula, acquired (principal) | CPT/HCPCS: 93990 ==

== ENCOUNTER 2025-03-30 08:24 | Day surgery (SDC) | payer OTHER, SELFPAY ==
[2025-03-30] VITALS (8 sets, daily range): BP systolic 101–129; BP diastolic 60–69; BMI 28.5
[2025-03-30] MEDS: BACTROBAN NASAL 1 GRAM NASAL (09:15)
[2025-03-30] MEDS: PERIDEX 0.12% ORAL RINSE 15 ML PO (09:15)
[2025-03-30] MEDS: NSS 500 IV (09:19)
[2025-03-30 09:46] LABS: INR 1.17; PT 15.2 Sec (11.4-14.6)
[2025-03-30 09:47] LABS: APTT 39.8 Sec (23.4-35.0)
[2025-03-30 09:48] LABS: Blood Urea Nitrogen 49 mg/dl (9-20); Calcium 9.8 mg/dl (8.4-10.2); Carbon Dioxide 33 mmol/L (22-30); Chloride 99 mmol/L (98-107); Estimated Creatinine Clearance 7 ml/min; Glucose 90 mg/dl (70-99); Potassium 6.0 mmol/L (3.5-5.1); Sodium 142 mmol/L (135-145); eGFR 7.02
[2025-03-30 09:51] LABS: Hematocrit 37.1 % (39.0-52.0); Hemoglobin 12.0 g/dL (13.0-18.0); Mean Corp Hgb Conc. 32.3 g/dL (33.0-37.0); Mean Corpuscular Volume 95.9 fL (80.0-94.0); Platelet Count 99 10^3/uL (130-400); Red Cell Dist. Width 13.9 % (11.5-14.5)
[2025-03-30] MEDS: LOKELMA 10 GRAM PO (10:25)
[2025-03-30 13:02] LABS: Glucose - Point of Care 77 mg/dl (70-99)
--- NOTE | 2025-03-30 13:37 | OR.RPT ---
Operative Report
Operative Report
Date of Operation: 03/30/2025
Pre Op Diagnosis: Poor flows through left upper extremity arteriovenous fistula at hemodialysis sessions
Post Op Diagnosis: Poor flows through left upper extremity arteriovenous fistula at hemodialysis sessions
Procedure:
1. Drug-coated balloon angioplasty of proximal venous outflow stenosis (5 mm x 80 mm Lutonix drug-coated angioplasty balloon)
2. Drug-coated balloon angioplasty of distal venous outflow stenosis (8 mm x 40 mm Lutonix drug-coated angioplasty balloon)
3. Diagnostic fistulogram
4. Central venogram
5. Ultrasound-guided percutaneous access to the left upper extremity arteriovenous fistula
Surgeon: Ayaan Escalera III, MD
Policy And Planning Manager: Manish Graham MD PGY2
Anesthesia: Sedation/local
Complications: None
Fluoroscopy:
8.7 minutes
13 mGy
2.59 DAP
History and Indications for Procedure: 79-year-old male with prior endovascular interventions on left upper extremity brachiobasilic arteriovenous fistula. Reported to have low flow at dialysis. He was brought to the operating room for fistulogram
and possible intervention
Procedure in Detail: Paul Hernández was correctly identified and placed supine on the operating table. After adequate induction of anesthesia the left arm was positioned, prepped and draped in the usual sterile fashion. Preoperative
antibiotics were administered. A timeout procedure was performed with the nursing and anesthesia staff confirming the patient�s identity as well as the nature and laterality of the procedure.
Intraoperative ultrasound was performed on the AV access. The access was patent. This was a left upper extremity brachiobasilic arteriovenous fistula with a transposed vein.
I identified a puncture site along the distal venous outflow in the upper arm and infiltrated local anesthesia at this site. Under ultrasound guidance I accessed the fistula with a micropuncture needle facing towards the arteriovenous anastomosis
and upsized to a 5 St Helenian sheath. Systemic heparin was administered. Over a XZERESson wire I tracked a glide catheter towards the arteriovenous anastomosis. I performed a fistulogram through the glide catheter which demonstrated the following:
Patent fistula but sluggish flow identified
Diffuse long segment stenosis involving the proximal venous outflow. Arteriovenous anastomosis widely patent with no stenosis identified
Brachial artery widely patent with no stenosis identified
Endovascular intervention:
Under roadmap guidance a Bentson wire was used to cross the arteriovenous anastomosis. I then brought a 5 mm x 80 mm Lutonix drug-coated angioplasty balloon into position under roadmap guidance and centered this across the proximal venous outflow
stenosis. This was inflated slowly to nominal pressure and held in place for a 4-minute inflation. Subsequent images demonstrated an excellent technical result with a widely patent proximal venous outflow, improved flow through the fistula and no
residual stenosis identified.
We also identified the venous outflow stenosis along the distal venous outflow which was focal. I exchanged out for a short 6 St Helenian sheath. Under roadmap guidance I then positioned an 8 mm x 40 mm Lutonix drug-coated angioplasty balloon across
the outflow stenosis. The balloon was slowly inflated to nominal pressure and held in place for 3-minute inflation.
Completion fistulogram demonstrated an excellent technical result. Widely patent left upper extremity fistula with brisk flow, improved compared to pretreatment. No significant residual stenosis remained. Central venogram was performed
demonstrating widely patent central veins with no stenosis identified.
At the conclusion of the procedure a 4-0 Monocryl suture was placed around the sheath puncture site. The sheath was removed and the suture secured. Protamine was administered. Hemostasis was achieved. A sterile dressing was applied.
The patient tolerated the procedure well and was taken to the PACU in stable condition
There was an excellent thrill along the course of the fistula at the conclusion of the case.
Attestation: I was present and responsible for the entire procedure
Signed:
Ayaan Escalera III, MD
Vascular Surgery
[facility]
[2025-03-30 14:40] LABS: Blood Urea Nitrogen 49 mg/dl (9-20); Calcium 9.2 mg/dl (8.4-10.2); Carbon Dioxide 31 mmol/L (22-30); Chloride 100 mmol/L (98-107); Estimated Creatinine Clearance 7 ml/min; Glucose 89 mg/dl (70-99); Potassium 5.7 mmol/L (3.5-5.1); Sodium 141 mmol/L (135-145); eGFR 6.69
--- NOTE | 2025-03-30 15:18 | W.PN.UPDATE ---
Update Note
Progress Note Update
Patient presented with potassium of 6 treated with Lokelma, posttreatment now at 5.7. Confirmed he is scheduled for dialysis tomorrow. No evidence of arrhythmia. Reviewed lab results with attending Dr. Ayaan Escalera III, agrees patient is cleared
for discharge to home.
== END 2025-03-30 15:40 | disposition home or self-care (01) ==
LOC: CATH 08:24
PROVIDERS: Nurse Practitioner; ATTENDING PHYSICIAN Surgery Vascular Surgery; PRIMARYCARE PHYSICIAN Internal Medicine
DX: T82.590A Other mechanical complication of surgically created arteriovenous fistula, initial encounter (principal); Y71.3 Surgical instruments, materials and cardiovascular devices (including sutures) associated with adverse incidents; N18.6 End stage renal disease; Z99.2 Dependence on renal dialysis
CPT/HCPCS: 36902; 80048; 82962; 85027; 85610; 85730; C1769; C1887; C1894; Q9967

== ENCOUNTER → 2025-04-29 12:29 | Outpatient (REF) | payer OTHER, SELFPAY | LOC: RAD 12:29 | PROVIDERS: ATTENDING PHYSICIAN Surgery Vascular Surgery; FAMILY PHYSICIAN Internal Medicine | DX: I77.0 Arteriovenous fistula, acquired (principal) | CPT/HCPCS: 93990 ==

== ENCOUNTER → 2025-05-25 10:38 | Outpatient (REF) | payer OTHER, SELFPAY | LOC: RAD 10:38 | PROVIDERS: ATTENDING PHYSICIAN Physician Assistant; FAMILY PHYSICIAN Internal Medicine | DX: I77.0 Arteriovenous fistula, acquired (principal) | CPT/HCPCS: 93990 ==